=== PATIENT | male | born 1940 | race Caucasian/White ===

== ENCOUNTER 2024-01-30 09:38 | Inpatient (IN) | payer MEDICARE, SELFPAY ==
[2024-01-30] VITALS (13 sets, daily range): BP systolic 81–141; BP diastolic 37–95; PULSE 62–77; RESP 14–20; TEMP 36.4–36.9; O2SAT 90–97; BMI 27.4
--- NOTE | ~2024-01-30 | XR_ITS ---
EXAMINATION: XR CHEST CLINICAL INFORMATION: SOB, Covid positive. Hypoxia COMPARISON: None available. TECHNIQUE: Frontal view of the chest was obtained. FINDINGS: The lungs are well-expanded with moderate dense opacity left lower lobe retrocardiac area suggestive of infiltrate. Heart size is enlarged with normal pulmonary vascularity. No gross bony abnormality seen. XR/XR chest 1V IMPRESSION: 1. Left lower lobe retrocardiac infiltrate. 2. Mild cardiomegaly.
--- NOTE | ~2024-01-30 | CT_ITS ---
EXAMINATION: CT ANGIOGRAM OF THE CHEST WITH AND WITHOUT CONTRAST (CT PULMONARY ANGIOGRAM FOR PE) CLINICAL INFORMATION: Reason for Exam covid,low O2 sat,chest pain,elevated d-dimer COMPARISON: None available. TECHNIQUE: Prior to contrast administration, noncontrast localization images were obtained. Subsequently, multidetector volumetric imaging was performed from the thoracic inlet to below the diaphragms following the administration of 65 mL Omnipaque 350 intravenous contrast. No contrast reaction reported Sagittal, coronal, and MIP oblique sagittal reformatted images were obtained on the CT workstation, uploaded to PACS, and reviewed. This CT examination was performed using dose optimization techniques as appropriate, variously including the following: *Automated exposure control *Adjustment of mA and/or kV according to patient size (this includes techniques or standardized protocols for targeted exams where dose is matched to indication/reason for exam; i.e. extremities or head) *Use of iterative reconstruction technique Total exam dose-length product 391 mGy-cm FINDINGS: QUALITY OF STUDY/CONTRAST BOLUS: Satisfactory. PULMONARY ARTERIES: No pulmonary emboli. THORACIC AORTA: No aneurysm. LUNG: There is diffuse emphysematous change. There is also bilateral multilobar groundglass attenuation. PLEURA: No pleural effusion or pneumothorax. MEDIASTINUM: Normal heart size. No pericardial effusion. No hilar or mediastinal lymphadenopathy. No evidence of septal bowing or right heart strain. CORONARY ARTERY CALCIFICATION: Moderate. CHEST WALL/AXILLA: No axillary or internal mammary lymphadenopathy. OSSEOUS STRUCTURES: No acute or suspicious osseous abnormality. UPPER ABDOMEN: There are diverticula at the splenic flexure of colon. No reflux of contrast into the hepatic veins to suggest elevated right heart pressures. CT/CT angio chest PE protocol IMPRESSION: 1. No evidence of pulmonary embolism. 2. Diffuse emphysematous change of lungs. 3. Bilateral multilobar groundglass attenuation is nonspecific. An atypical infectious process considered. VTE: negative.
--- NOTE | ~2024-01-30 | XR_ITS ---
EXAMINATION: XR CHEST CLINICAL INFORMATION: Tube insertion COMPARISON: Previous chest x-ray 02/01/2024 TECHNIQUE: Frontal view of the chest was obtained. FINDINGS: Endotracheal tube tip 1 cm above the sigrid. Nasogastric tube projects over proximal stomach. The cardiac and mediastinal contours are stable. There is bilateral airspace disease, left greater than right, probably representing pneumonia. This does not appear appreciably changed from January 31 exam. No pleural effusion or pneumothorax. Degenerative changes of the spine and shoulders. XR/XR chest 1V IMPRESSION: Endotracheal tube tip 1 cm above the sigrid and should be pulled back slightly. Nasogastric tube projects over proximal stomach. No change in bilateral airspace disease probably representing pneumonia. Findings will be communicated by the [employer] workflow pastrycook.
--- NOTE | ~2024-01-30 | XR_ITS ---
EXAMINATION: XR CHEST CLINICAL INFORMATION: Post dialysis catheter placement COMPARISON: Previous chest x-ray most recent February 03, 2024 TECHNIQUE: Frontal view of the chest was obtained. FINDINGS: Endotracheal tube with tip 4.5 cm above the sigrid. Nasogastric tube projects over proximal stomach, tip not seen. New right jugular line with tip projecting over the SVC. The cardiac silhouette is enlarged but stable. There is worsening bilateral airspace disease. There is denser atelectasis or consolidation at the left lung base. Differential would include pneumonia and pulmonary edema.. No pleural effusion or pneumothorax. XR/XR chest 1V IMPRESSION: New right jugular line tip projects over SVC. No pneumothorax. Worsening bilateral airspace disease.
--- NOTE | ~2024-01-30 | XR_ITS ---
EXAMINATION: XR CHEST CLINICAL INFORMATION: Respiratory failure. COMPARISON: CT from the same date at 4:50 AM. Radiograph from the same date at 2:30 AM TECHNIQUE: Frontal view of the chest was obtained. FINDINGS: Progression of the diffuse patchy consolidative and hazy airspace opacities throughout both lungs, left side greater than right. Cardiac silhouette is within normal limits in size. Pulmonary vasculature is obscured by the pulmonary opacities. No pneumothorax or pleural effusion identified. Degenerative spondylosis is present in the thoracic spine. No acute osseous findings. Chronic bilateral rotator cuff tears. XR/XR chest 1V IMPRESSION: Progression of the diffuse patchy consolidative and hazy airspace opacities throughout both lungs, left side greater than right. This appearance could correspond to pulmonary edema. Pneumonia is possible, though less likely given the rapid progression. Acute interstitial pneumonia and diffuse alveolar hemorrhage are also on the differential.
--- NOTE | ~2024-01-30 | XR_ITS ---
EXAMINATION: XR CHEST CLINICAL INFORMATION: Worsening O2 saturation. COMPARISON: 01/30/2024 TECHNIQUE: Frontal view of the chest was obtained. FINDINGS: The cardiomediastinal silhouette is stable. There is stable left lateral left greater than right lower lung field increased markings/left lung base infiltrative change. There is no new consolidation or pleural effusion. The bony structures and soft tissues are unremarkable. XR/XR chest 1V IMPRESSION: Stable bilateral lower lung field increased markings/left lower lung field infiltrative change. No new consolidation or pleural effusion.
--- NOTE | ~2024-01-30 | XR_ITS ---
EXAMINATION: XR CHEST CLINICAL INFORMATION: Decreased oxygen saturation COMPARISON: 02/06/2024 TECHNIQUE: Frontal view of the chest was obtained. FINDINGS: Endotracheal tube tip lies approximately 6 cm above the sigrid. Enteric tube courses below the diaphragm. Right IJ central line tip lies in the region of the upper SVC. Lung volumes are symmetric. Regions of airspace opacity at the bilateral lung bases are similar to prior. Heterogeneous haziness in the mid to upper lungs appears slightly decreased compared to prior. No evidence of pneumothorax. Small left pleural effusion is suspected. The cardiomediastinal silhouette is stable. Calcification is present at the aortic arch. No acute osseous findings are seen. XR/XR chest 1V IMPRESSION: Heterogeneous haziness in the mid to upper lungs appears slightly decreased compared to prior. Persistent bibasilar opacities and small left pleural effusion. Endotracheal tube tip 6 cm above the sigrid.
--- NOTE | 2024-01-30 10:21 | ECG_ITS ---
Test Reason : SOB Blood Pressure : / mmHG Vent. Rate : 066 BPM Atrial Rate : 066 BPM P-R Int : 132 ms QRS Dur : 096 ms QT Int : 432 ms P-R-T Axes : 013 -24 -07 degrees QTc Int : 452 ms Sinus rhythm with Premature atrial complexes Minimal voltage criteria for LVH, may be normal variant ( R in aVL ) Borderline ECG No previous ECGs available Referred By: Betty Rendon Electronically Signed By:AL BAE
--- NOTE | 2024-01-30 10:23 | ED.SOB ---
HPI - SOB/Dyspnea General Chief Complaint: Dyspnea Stated Complaint: SOB Time Seen by Provider: 01/30/24 09:49 Source: patient, family and EMS Mode of arrival: EMS Limitations: no limitations History of Present Illness HPI Narrative: 83 yo male with history of HTN, HLD, CAD s/p stent, hx skin cancer who presents to the ER from his doctor's office via EMS for evaluation of SOB, cough and hypoxia in the setting of being found to be COVID+ yesterday at home. He reports he started getting sick 8 days ago. His symptoms including productive cough of clear/white phlegm, weakness, fatigue, shortness of breath with exertion. He has not had any fevers or chest pain. No known sick contacts. He is vaccinated and boosted against COVID-19 but cannot recall when his last booster was. He is a former smoker, quit at age 41. No known history of COPD or asthma. He was at his doctor's office today where he was found to be 86% on room air. He was placed on 3L NC with improvement to 95%. On arrival to the ER patient was able to speak in complete sentences, no respiratory distress. Dry cough present. SPO2 91% on 3L NC to was increased to 4L NC. MD elicited complaint: shortness of breath and cough Onset (ago): day(s) Context: recent illness Timing: intermittent and progressively worsening Severity: moderate Exacerbating factors: exertion and coughing Relieving factors: oxygen and rest Associated symptoms: cough, sputum production, chest congestion and lightheadedness Treatment prior to arrival: oxygen Related Data Home oxygen amount: none Home Medications Medication Instructions Recorded Confirmed aspirin 81 mg tablet,delayed 81 mg PO DAILY 01/30/24 01/30/24 release isosorbide mononitrate 30 mg 30 mg PO DAILY 01/30/24 01/30/24 tablet,extended release 24 hr lisinopril 10 mg tablet 10 mg PO DAILY 01/30/24 01/30/24 metoprolol succinate 25 mg 25 mg PO DAILY 01/30/24 01/30/24 tablet,extended release 24 hr multivitamin 1 tab PO DAILY 01/30/24 01/30/24 rosuvastatin 10 mg tablet 10 mg PO BEDTIME 01/30/24 01/30/24 tafluprost (PF) 0.0015 % eye drops 1 drp ophthalmic (eye) DAILY 01/30/24 01/30/24 in a dropperette triamcinolone acetonide 0.1 % 1 appl topical BID-TID 01/30/24 01/30/24 topical cream Allergies Allergy/AdvReac Type Severity Reaction Status Date / Time atorvastatin Allergy Unknown Verified 01/30/24 10:15 cephalexin Allergy Unknown Verified 01/30/24 10:15 doxycycline Allergy Unknown Verified 01/30/24 10:15 neomycin Allergy Unknown Verified 01/30/24 10:15 Review of Systems Review of Systems: Yes all other systems are reviewed and are negative [facility] Social History Social History Smoked in Last 30 Days: No Advance Directives: No Advance Directives Information Provided: No Physical Exam Vital Signs: Vital Signs: Last Vital Signs Temp 98.5 F 01/30/24 10:16 Pulse 64 01/30/24 12:13 Resp 14 01/30/24 12:13 BP 91/60 01/30/24 12:13 Pulse Ox 96 01/30/24 12:13 O2 Del Method Nasal Cannula 01/30/24 12:13 O2 Flow Rate 5 01/30/24 12:13 Oxygen Flow Rate 4 01/30/24 10:16 BMI result Body Mass Index 27.4 Appearance: Alert. Oriented X3. No acute distress. Head: normocephalic, atraumatic. Eyes: Pupils equal, round and reactive to light. ENT: Pharynx normal. No tonsillar swelling or exudate. Neck: Normal inspection. Neck supple. CVS: Normal heart rate and rhythm. Pulses normal. Respiratory: No respiratory distress. Breath sounds coarse at the bilateral bases without any rhonchi or wheezing. Abdomen: Soft and nontender. +BS x4 Skin: Skin warm and dry. Normal skin color. Normal skin turgor. No rashes. Extremities: No lower extremity edema. No joint swelling. Neuro/psych: Oriented X 3. No motor deficit. No sensory deficit. CN II-XII intact. Normal speech and cognition. Course Reevaluation(s) Reevaluation #1: hypoxic, requiring 4L NC to maintain sats. anticipate admission. IV decadron ordered for COVID. CXR, labs, EKG pending. Time: 10:28 Medications Administered Discontinued Medications Generic Name Dose Route Start Last Admin Trade Name Freq PRN Reason Stop Dose Admin Dexamethasone Sodium Phosphate 6 mg 01/30/24 10:21 01/30/24 10:42 Dexamethasone Sod Phosphate 4 Mg/Ml Vial IVPUSH 01/30/24 10:22 6 mg ONCE ONE Administration Medical Decision Making Medical Decision Making [facility] Narrative: 83 yo male with history of HTN, HLD, skin cancer who presents to the ER from his doctor's office via EMS for evaluation of SOB, cough and hypoxia in the setting of being found to be COVID+ yesterday at home. He reports he started getting sick 8 days ago. Patient is hypoxic requiring significant amounts of oxygen. He has been titrated up to 6 L nasal cannula to maintain saturations. He has not in any respiratory distress or having any difficulty breathing. His chest x-ray shows a LLL infiltrate. this is likely viral however given degree of hypoxia will give dose of azithromycin for possible CAP. does not meet sepsis criteria - no fever, leukocytosis, has low procalcitonin. has allergies to cephalosporins and doxycycline. BP has been soft but stable. MAPs 65-70s. he reports they have been on the lower side at home. results d/w patient. plan for admission for hypoxia 2/2 COVID-19 Differential Diagnosis Differential Diagnoses: The differential diagnosis associated with the presentation includes COVID pneumonia, superimposed bacterial pneumonia, acute CHF, less likely PE Admission/Observation Consideration of admission/observation: Escalation of care including admission/observation considered Consult Healthcare Provider Management of the patient was discussed with: Hospitalist Lab Data [facility] Lab Attestation statement: I reviewed the patient's lab results. 01/30/24 10:52 01/30/24 10:52 Labs: Lab Results 01/30/24 Range/Units 10:52 WBC 7.4 (4.8-10.8) X10*3/uL RBC 4.28 L (4.60-5.80) X10*6/uL Hgb 13.2 L (14.0-18.0) g/dl Hct 39.3 L (42.0-52.0) % MCV 91.8 (80.0-98.0) fL MCH 30.8 (27.0-33.0) pg MCHC 33.6 (31.0-36.0) g/dl RDW 13.2 (11.0-16.0) % Plt Count 155 L (160-400) X10*3/uL MPV 11.4 (9.4-12.4) fL Immature Gran % (Auto) 0.3 (0.0-0.4) % Neut % (Auto) 82.4 H (45-73) % Lymph % (Auto) 10.0 L (20-40) % [place] % (Auto) 6.9 (2-11) % Eos % (Auto) 0.1 (0-4) % Baso % (Auto) 0.3 (0-2) % Lymph # (Auto) 0.7 L (1.2-4.9) X10*3/uL [place] # (Auto) 0.5 (0.1-1.2) X10*3/uL Eos # (Auto) 0.0 (0.0-0.4) X10*3/uL Baso # (Auto) 0.0 (0.0-0.2) X10*3/uL Abs Immat Gran (auto) 0.02 (0.00-0.03) X10*3/uL Absolute Neuts (auto) 6.1 (2.0-8.3) x10*3/uL Absolute Nucleated RBC 0.000 (0.0-0.012) X10*3/uL Nucleated RBC % (auto) 0.0 (0.0-0.2) /100WBC Sodium 137 (135-145) mmol/L Potassium 4.7 (3.3-5.1) mmol/L Chloride 104 (96-108) mmol/L Carbon Dioxide 24 (22-29) mmol/L Anion Gap 14 (12-20) BUN 25 H (9-16) mg/dL Creatinine 1.13 (0.5-1.4) mg/dL Estim Creat Clear Calc 50.9 Estimated GFR > 60 Random Glucose 109 (60-115) mg/dL Calcium 8.2 L (8.4-10.2) mg/dL Magnesium 2.2 (1.6-2.6) mg/dL Total Bilirubin 1.4 H (0.0-1.0) mg/dL Direct Bilirubin 0.6 H (0.0-0.5) mg/dL AST 51 H (5-37) U/L ALT 48 H (0-40) U/L Alkaline Phosphatase 85 (39-117) U/L Troponin I High Sens 14.0 (<3.5-35.0) ng/L B-Natriuretic Peptide 105 H (<100) pg/mL Total Protein 6.4 L (6.5-8.0) g/dL Albumin 3.4 L (3.5-5.0) g/dL Procalcitonin 0.12 ng/mL Independent Interpretation I performed an independent interpretation of an: EKG and Plain X-Ray Interpretation: EKG w/ sinus rhythm with PACs, HR 66 bpm, normal LA interval, normal QTC, no ST segment elevations or depressions. Chest x-ray with infiltration in the left lower lobe, agree with radiologist's read Radiology Impression Discussion of test interpretation with radiology: I have reviewed the radiologist's reading. Radiologist Impression: XR/XR chest 1V IMPRESSION: 1. Left lower lobe retrocardiac infiltrate. 2. Mild cardiomegaly. Independent Historian Clinical information obtained from an independent historian. History obtained from or confirmed by: Spouse and EMS External Record Review External record reviewed: Outpatient record Prescription Management I considered prescription management with: Antiviral and Other Chronic Conditions Patient?s care impacted by: Hypertension Critical Care Time Critical Care Time Critical Care Time: Yes Total Critical Care Time: 39 Attestation: I have personally provided critical care time exclusive of time spent on separately billable procedures. Time includes review of lab data, radiology results, discussion with consultants, and monitoring for potential decompensation. Intervention performed as documented. Discharge Plan Discharge Clinical Impression: Acute respiratory failure with hypoxia, COVID-19 Patient Disposition: Admitted As Inpatient
[2024-01-30] MEDS: dexAMETHasone sod phosphate 4 MG/ML VIAL 6 MG IVPUSH (10:42)
--- NOTE | 2024-01-30 10:45 | PHA.MEDREC ---
Pharmacy Consult ? Medication Reconciliation Pharmacy has completed the medication reconciliation. ED faxed medication list up to pharmacy.
[2024-01-30 10:56] LABS: MANUAL DIFF FLAG NO
[2024-01-30 11:03] LABS: Basophils Percent Auto 0.3 % (0-2); Eosinophils Percent Auto 0.1 % (0-4); Hematocrit 39.3 % (42.0-52.0); Hemoglobin 13.2 g/dl (14.0-18.0); Imm Gran Abs Auto 0.02 X10*3/uL (0.00-0.03); Imm Gran Pct Auto 0.3 % (0.0-0.4); Lymphocytes Absolute Auto 0.7 X10*3/uL (1.2-4.9); Mean Corpuscular HGB Conc 33.6 g/dl (31.0-36.0); Mean Corpuscular Hemoglobin 30.8 pg (27.0-33.0); Mean Corpuscular Volume 91.8 fL (80.0-98.0); Mean Platelet Volume 11.4 fL (9.4-12.4); Monocytes Absolute Auto 0.5 X10*3/uL (0.1-1.2); Monocytes Percent Auto 6.9 % (2-11); Neutrophils Absolute Auto 6.1 x10*3/uL (2.0-8.3); Neutrophils Percent Auto 82.4 % (45-73); Platelet Count 155 X10*3/uL (160-400); Red Blood Count 4.28 X10*6/uL (4.60-5.80); Red Cell Distribution Width 13.2 % (11.0-16.0); White Blood Count 7.4 X10*3/uL (4.8-10.8)
[2024-01-30 11:25] LABS: Alanine Aminotransferase 48 U/L (0-40); Albumin Level 3.4 g/dL (3.5-5.0); Alkaline Phosphatase 85 U/L (39-117); Anion Gap 14 (12-20); Aspartate Amino Transferase 51 U/L (5-37); Bilirubin Direct 0.6 mg/dL (0.0-0.5); Bilirubin Total 1.4 mg/dL (0.0-1.0); Blood Urea Nitrogen 25 mg/dL (9-16); Calcium 8.2 mg/dL (8.4-10.2); Carbon Dioxide 24 mmol/L (22-29); Chloride 104 mmol/L (96-108); Creatinine Clr Calc Pharmacy 50.9; Estimated Glomerular Filt Rate > 60; Glucose Random 109 mg/dL (60-115); Magnesium 2.2 mg/dL (1.6-2.6); Potassium 4.7 mmol/L (3.3-5.1); Sodium 137 mmol/L (135-145); Total Protein 6.4 g/dL (6.5-8.0)
[2024-01-30 11:26] LABS: B Type Natriuretic Peptide 105 pg/mL (<100)
[2024-01-30 11:46] LABS: Procalcitonin 0.12 ng/mL
--- NOTE | 2024-01-30 12:12 | PC.NURSE ---
Per SHEREE Hernández, pt does not need blood cultures. PA made aware of BP 91/60, map 72.
--- NOTE | 2024-01-30 13:05 | PC.NURSE ---
BP 81/54 with a mAP of 63 - Betty BENTLEY made aware.
--- NOTE | 2024-01-30 13:11 | P.HPHOSP_ITS ---
History of Present Illness Date of Service: 01/30/24 Attending physician on admission: Kenisha Diaz Chief Complaint: SOB/KAUFFMAN Pt is an 83-year-old male with a PMH significant for?HTN, HLD, CAD s/p stenting, and hx of skin cancer who presents to the ED with?cough, SOB, difficulty breathing, and myalgias x1 week. Patient states symptoms began last and continued to worsen over the week. Reports cough has mostly been nonproductive. Has been eating and drinking less during this time, and feeling weaker than normal. Patient took a home COVID test yesterday which was positive. Presented to PCP this morning for evaluation and was found to be hypoxic, satting at 86% on RA and was sent to the ED for further evaluation. Patient reports that he has never felt this sick before in his life. Denies chest pain/pressure, palpitations. No fever or chills. Denies nausea, vomiting, abdominal pain. Remote history of smoking, quit over 40 years ago. In the ED pt was hypotensive as low as 81/54 and hypoxic as low as 86% on RA. Labs were significant for bilirubin 1.4, AST 51, ALT 48, BNP 105. No leukocytosis. Procalcitonin 0.12. CXR showed left lower lobe retrocardiac infiltrate and mild cardiomegaly. EKG demonstrated sinus rhythm with PACs but no evidence of ST elevations or depressions. Pt was treated with dexamethasone, IVF, and azithromycin. Pt will be admitted to the hospital for treatment and further evaluation of acute hypoxic respiratory failure in the setting of COVID infection with superimposed pneumonia. Review of Systems 2 Review of Systems: SOB, KAUFFMAN Cough occasionally productive whitish sputum Myalgias Denies fever, chills No nausea, vomiting, diarrhea, abdominal pain Denies chest pain/pressure, palpitations [facility] Medical History (Updated 01/31/24 @ 13:12 by Kenisha Diaz MD) HLD (hyperlipidemia) HTN (hypertension) CAD (coronary artery disease) Social History Household Members: Spouse Housing: House Do you presently have visiting nurse or other home services: No Patient Tobacco Use Status: Former Tobacco user Smoked in Last 30 Days: No Use of substances other than those prescribed or required for medical reasons: No Currently Displaying Signs/Symptoms of Drug Intoxication Withdrawal: No Have you been hit, kicked, punched, or otherwise hurt by someone within the past year? If so, by whom?: No Do you feel safe in your current relationship?: Yes Is there a partner from a previous relationship who is making you feel unsafe now?: No Are you made to feel afraid or neglected: No Advance Directives: No Advance Directives Information Provided: No Nutrition Risks: No Nutritional Risk service: No Meds Allergies Allergy/AdvReac Type Severity Reaction Status Date / Time atorvastatin Allergy Unknown Verified 01/30/24 10:15 cephalexin Allergy Unknown Verified 01/30/24 10:15 doxycycline Allergy Unknown Verified 01/30/24 10:15 neomycin Allergy Unknown Verified 01/30/24 10:15 Active Medications: Current Medications Azithromycin 500 mg/ Sodium (Chloride) 250 mls @ 125 mls/hr IV ONCE ONE Stop: 01/30/24 14:17 Sodium Chloride (Ns) 500 mls @ 500 mls/hr IV .Q1H TERESA Stop: 01/30/24 14:14 Home Medications Medication Instructions Recorded Confirmed Last Taken Type aspirin 81 mg tablet,delayed 81 mg PO DAILY 01/30/24 01/30/24 Unknown History release dorzolamide-timolol (PF) 2 %-0.5 % 1 drp ophthalmic (eye) BID 01/30/24 01/30/24 Unknown History eye drops in a dropperette (Cosopt (PF)) isosorbide mononitrate 30 mg 30 mg PO DAILY 01/30/24 01/30/24 Unknown History tablet,extended release 24 hr lisinopril 10 mg tablet 10 mg PO DAILY 01/30/24 01/30/24 Unknown History metoprolol succinate 25 mg 25 mg PO DAILY 01/30/24 01/30/24 Unknown History tablet,extended release 24 hr multivitamin 1 tab PO DAILY 01/30/24 01/30/24 Unknown History rosuvastatin 10 mg tablet 10 mg PO BEDTIME 01/30/24 01/30/24 Unknown History tafluprost (PF) 0.0015 % eye drops 1 drp ophthalmic (eye) DAILY 01/30/24 01/30/24 Unknown History in a dropperette triamcinolone acetonide 0.1 % 1 appl topical BID-TID 01/30/24 01/30/24 Unknown History topical cream Physical Exam 2 Vital Signs and Narrative: Vital Signs: Last Vital Signs Temp 97.6 F 01/30/24 13:10 Pulse 63 01/30/24 13:10 Resp 18 01/30/24 13:10 BP 81/54 L 01/30/24 13:10 Pulse Ox 95 01/30/24 13:10 O2 Del Method Nasal Cannula 01/30/24 12:13 O2 Flow Rate 5 01/30/24 12:13 Oxygen Flow Rate 4 01/30/24 10:16 BMI result Body Mass Index 27.4 Constitutional: Alert, in no acute distress. Mental Status: Oriented to person, place and time. Eyes: Pupils are equal, round, and reactive to light. Ear, Nose, and Throat: Oropharynx clear, mucous membranes moist. Ears and nose without deformities. Trachea midline. Respiratory: Clear to auscultation bilaterally. No wheezing, rales, or rhonchi. Able to speak in full sentences. Noted to occasionally cough during exam. Cardiovascular: S1, S2 regular. 3/6 murmur heard at right sternal border. Gastrointestinal: Abdomen soft, non-tender, non-distended. Normal bowel sounds. Neurologic: Cranial nerves II-XII are grossly intact bilaterally. No focal neurological deficits. Moves all extremities spontaneously. Skin: Warm, dry. Musculoskeletal: No cyanosis or clubbing. Extremities: No edema. Psychiatric: Normal mood and affect. Results Labs 02/01/24 06:28 02/01/24 06:29 Labs: Laboratory Results - last 24 hr 01/30/24 10:52 MCV 91.8 MCH 30.8 MCHC 33.6 RDW 13.2 Plt Count 155 L MPV 11.4 Immature Gran % (Auto) 0.3 Neut % (Auto) 82.4 H Lymph % (Auto) 10.0 L [place] % (Auto) 6.9 Eos % (Auto) 0.1 Baso % (Auto) 0.3 Lymph # (Auto) 0.7 L [place] # (Auto) 0.5 Eos # (Auto) 0.0 Baso # (Auto) 0.0 Abs Immat Gran (auto) 0.02 Absolute Neuts (auto) 6.1 Absolute Nucleated RBC 0.000 Nucleated RBC % (auto) 0.0 Anion Gap 14 Estim Creat Clear Calc 50.9 Estimated GFR > 60 Random Glucose 109 Calcium 8.2 L Magnesium 2.2 Total Bilirubin 1.4 H Direct Bilirubin 0.6 H AST 51 H ALT 48 H Alkaline Phosphatase 85 Troponin I High Sens 14.0 B-Natriuretic Peptide 105 H Total Protein 6.4 L Albumin 3.4 L Procalcitonin 0.12 Imaging Radiologist's Impressions: Impressions Chest X-Ray 01/30/24 11:15 IMPRESSION: 1. Left lower lobe retrocardiac infiltrate. 2. Mild cardiomegaly. Assessment and Plan (1) COVID-19: Status: Acute (2) Acute respiratory failure with hypoxia: Status: Acute Plan Pt is an 83-year-old male with a PMH significant for?HTN, HLD, CAD s/p stenting, and hx of skin cancer who presents to the ED with?cough, SOB, difficulty breathing, and myalgias x1 week. Pt will be admitted to the hospital for treatment and further evaluation of acute hypoxic respiratory failure in the setting of COVID infection with superimposed pneumonia. Acute hypoxic respiratory failure in the setting of COVID infection with superimposed pneumonia Patient with cough, SOB, difficulty breathing, myalgias, anorexia x1 week, satting as low as 86% on RA Tested positive for COVID, CXR showing left lower lobe retrocardiac infiltrate Does not meet sepsis criteria: No fever, tachycardia, tachypnea, or leukocytosis Will treat with ceftriaxone and azithromycin, started 01/30/2024 Will treat with dexamethasone, DuoNebs, guaifenesin Will hold off on remdesivir; pt has been experiencing symptoms for over one week and unlikely to be of much benefit Titrate supplemental O2 >92, wean as tolerated HTN BP has been soft, will hold lisinopril for now, resume as warranted HLD/CAD Continue statin, aspirin Full Code Attending:?Dr. Diaz DVT Prophylaxis: Lovenox Pt will require a hospitalization of at least two nights for treatment of acute hypoxic respiratory failure in setting of COVID infection with superimposed pneumonia. Patient will require hospitalization for administration of supplemental O2, IV steroids, and IV antibiotics.? Quality Stroke Does the patient have a stroke diagnosis?: No VTE Prior VTE?: No VTE Risk Level:: Medical - moderate - high VTE Device Contraindication: Treatment Not Indicated VTE Drug Contraindication: N/A - Med Ordered
[2024-01-30] MEDS: 0.9 % Sodium Chloride 500 ML IV (13:46)
[2024-01-30] MEDS: Azithromycin 500 MG in 0.9 % Sodium Chloride 250 ML 125 MG IV (13:46)
[2024-01-30 13:52] LABS: Appearance Urine Cloudy; Color Urine Dark Yellow; Glucose Urine UA Negative (Negative); Leukocyte Esterase Urine Trace (Negative); Nitrite Urine Negative (Negative); PH 5.5 (5.0-9.0); Specific Gravity - Urine >= 1.030 (1.005-1.025); UMIC TRIGGER UACC YES; Urine Blood Negative (Negative); Urine Ketones Trace mg/dL (Negative); Urine Protein 100 (2+) mg/dL (Neg-Trace)
[2024-01-30 14:07] LABS: Bacteria Urine None Seen (None Seen); RBC Urine 0-2 /HPF (0-2); WBC Urine 0-5 /HPF (0-5)
[2024-01-30 14:24] LABS: Influenza A PCR NEGATIVE (Negative); Influenza B PCR NEGATIVE (Negative); Resp Syncy Virus RNA Qual PCR NEGATIVE (Negative); SARS COV2 PCR INHOUSE POSITIVE (Negative)
[2024-01-30] MEDS: cefTRIAXone sodium 1 GM in 0.9 % Sodium Chloride 50 ML IV (18:22)
[2024-01-30] MEDS: 0.9 % Sodium Chloride Flush 3 ML SYRINGE IVFLUSH (18:22)
[2024-01-30] MEDS: Albuterol/Iprat 2.5/0.5MG 3 ML AMPUL.NEB INHALE (20:49)
[2024-01-31] VITALS (11 sets, daily range): BP systolic 108–184; BP diastolic 55–94; PULSE 69–90; RESP 16–21; TEMP 36–36.6; O2SAT 80–97
[2024-01-31 06:43] LABS: MANUAL DIFF FLAG NO
[2024-01-31 06:54] LABS: Basophils Percent Auto 0.1 % (0-2); Hematocrit 38.7 % (42.0-52.0); Hemoglobin 13.3 g/dl (14.0-18.0); Imm Gran Abs Auto 0.08 X10*3/uL (0.00-0.03); Imm Gran Pct Auto 0.8 % (0.0-0.4); Lymphocytes Absolute Auto 0.6 X10*3/uL (1.2-4.9); Mean Corpuscular HGB Conc 34.4 g/dl (31.0-36.0); Mean Corpuscular Hemoglobin 31.3 pg (27.0-33.0); Mean Corpuscular Volume 91.1 fL (80.0-98.0); Monocytes Absolute Auto 0.4 X10*3/uL (0.1-1.2); Monocytes Percent Auto 4.1 % (2-11); Neutrophils Absolute Auto 9.4 x10*3/uL (2.0-8.3); Platelet Count 160 X10*3/uL (160-400); Red Blood Count 4.25 X10*6/uL (4.60-5.80); Red Cell Distribution Width 12.9 % (11.0-16.0); White Blood Count 10.6 X10*3/uL (4.8-10.8)
[2024-01-31 07:17] LABS: Anion Gap 14 (12-20); Blood Urea Nitrogen 26 mg/dL (9-16); Calcium 8.6 mg/dL (8.4-10.2); Carbon Dioxide 20 mmol/L (22-29); Chloride 107 mmol/L (96-108); Creatinine Clr Calc Pharmacy 65.3; Estimated Glomerular Filt Rate > 60; Glucose Random 137 mg/dL (60-115); Potassium 4.4 mmol/L (3.3-5.1); Sodium 137 mmol/L (135-145)
[2024-01-31] MEDS: Albuterol/Iprat 2.5/0.5MG 3 ML AMPUL.NEB INHALE ×4 (07:32→19:46)
--- NOTE | 2024-01-31 07:37 | PC.RT ---
found pt without 02 on. sats 80%. placed back on 6 l n/c and administered nebulizer. sats up to 94% now no resp distress noted
[2024-01-31] MEDS: Metoprolol Succinate ER 25 MG TAB.ER.24H PO (07:58)
[2024-01-31] MEDS: Isosorbide Mononitrate 30 MG TAB.ER.24H PO (07:58)
[2024-01-31] MEDS: dexAMETHasone sod phosphate 4 MG/ML VIAL 6 MG IVPUSH (07:58)
[2024-01-31] MEDS: lisinopriL 10 MG TABLET PO (07:59)
[2024-01-31] MEDS: Multivitamin TABLET 1 TAB PO (07:59)
[2024-01-31] MEDS: Aspirin Enteric Coated 81 MG TABLET.DR PO (07:59)
[2024-01-31] MEDS: 0.9 % Sodium Chloride Flush 3 ML SYRINGE IVFLUSH ×3 (07:59→21:24)
--- NOTE | 2024-01-31 08:41 | PC.RT ---
pt sats continue to be less than 88% on 6 liters nasal cannua. Changed to 8 liter [place] N/c and sats 88%-92% when has is not moving.
[2024-01-31 08:44] LABS: Alanine Aminotransferase 62 U/L (0-40); Albumin Level 3.3 g/dL (3.5-5.0); Alkaline Phosphatase 91 U/L (39-117); Aspartate Amino Transferase 58 U/L (5-37); Bilirubin Direct 0.5 mg/dL (0.0-0.5); Bilirubin Total 0.9 mg/dL (0.0-1.0); Total Protein 6.2 g/dL (6.5-8.0)
--- NOTE | 2024-01-31 12:40 | MHC.CM.PN ---
Pt lives with his , he is independent, no home health services or medical equipment. HCP was completed and added to chart, naming his , Lina and his son. DC plan is home via family transport, self care. CM to follow and assist with DC planning.
[2024-01-31] MEDS: Azithromycin 500 MG in 0.9 % Sodium Chloride 250 ML 125 MG IV (13:00)
--- NOTE | 2024-01-31 13:07 | P.PNIM_ITS ---
Subjective Subjective Date of Service: 01/31/24 Interval History: Seen and evaluated this morning feels better overall denies any fever or chills Review of Systems Review of Systems: Yes all other systems are reviewed and are negative Physical Exam 2 Vital Signs: Vital Signs: Last Vital Signs Temp 96.8 F 01/31/24 08:00 Pulse 87 01/31/24 11:32 Resp 16 01/31/24 11:32 BP 108/55 L 01/31/24 08:00 Pulse Ox 94 01/31/24 08:00 O2 Del Method Nasal Cannula 01/31/24 08:00 O2 Flow Rate 5 01/31/24 08:00 Oxygen Flow Rate 4 01/30/24 10:16 BMI result Body Mass Index 27.4 Const: Other: Constitutional : Awake, interactive, not in distress Neck : Normal inspection, Supple Cardiovascular : RRR, no JVP, no lower extremity edema Respiratory : good bilateral air entry, basal crackles, wheezes or rhonchi, On O2 supplement Gastrointestinal: soft, lax, Normal bowel sounds, Non tender Skin : Warm, Dry Neurological : Alert & oriented x3, No focal deficit , Objective Data Active Medications Acetaminophen (Acetaminophen 325 Mg Tablet) 650 mg PO Q6H PRN PRN Reason: Pain, Mild (Pain Scale 1-3) Albuterol/Ipratropium (Albuterol/Iprat 2.5/0.5mg 3 Ml Ampul.Neb) 3 ml INHALE RQ4H WHILE AWAKE [facility] Last Admin: 01/31/24 11:30 Dose: 3 ml Documented By: VIKTOR Aspirin (Aspirin Enteric Coated 81 Mg Tablet.) 81 mg PO DAILY [facility] Last Admin: 01/31/24 07:59 Dose: 81 mg Documented By: KATIE Dexamethasone Sodium Phosphate (Dexamethasone Sod Phosphate 4 Mg/Ml Vial) 6 mg IVPUSH DAILY [facility] Last Admin: 01/31/24 07:58 Dose: 6 mg Documented By: KATIE Docusate Sodium (Docusate Sodium 100 Mg Capsule) 100 mg PO DAILY PRN PRN Reason: Constipation Guaifenesin/Dextromethorphan (Guaifenesin Dm 200/20/10 Ml 10 Ml Syrup) 10 ml PO Q6H PRN PRN Reason: Cough Ceftriaxone Sodium 1 gm/ (Sodium Chloride) 50 mls @ 100 mls/hr IV Q24H [facility] Last Infusion: 01/30/24 19:00 Dose: Infused Documented By: AXEL Azithromycin 500 mg/ Sodium (Chloride) 250 mls @ 125 mls/hr IV Q24H [facility] Last Admin: 01/31/24 13:00 Dose: 125 mls/hr Documented By: KATIE Isosorbide Mononitrate (Isosorbide Mononitrate 30 Mg Tab.Er.24h) 30 mg PO DAILY [facility]; Protocol Last Admin: 01/31/24 07:58 Dose: 30 mg Documented By: KATIE Lisinopril (Lisinopril 10 Mg Tablet) 10 mg PO DAILY [facility]; Protocol Last Admin: 01/31/24 07:59 Dose: 10 mg Documented By: KATIE Melatonin (Melatonin 3 Mg Tablet) 6 mg PO BEDTIME PRN PRN Reason: Insomnia Metoprolol Succinate (Metoprolol Succinate Er 25 Mg Tab.Er.24h) 25 mg PO DAILY [facility]; Protocol Last Admin: 01/31/24 07:58 Dose: 25 mg Documented By: KATIE Multivitamins/Vitamin C (Multivitamin Tablet) 1 tab PO DAILY [facility] Last Admin: 01/31/24 07:59 Dose: 1 tab Documented By: KATIE Non-Formulary Medication (Tafluprost (Pf)) 1 drop EYE-BOTH DAILY [facility] (Dorzolamide-Timolol (Pf) [Cosopt (Pf)] 2-0.5 % Dropperette) 1 drop EYE-BOTH BID [facility] Ondansetron HCl (Ondansetron Hcl 4 Mg/2 Ml Vial) 4 mg IVPUSH Q8H PRN PRN Reason: Nausea and Vomiting Sodium Chloride (0.9 % Sodium Chloride Flush 3 Ml Syringe) 3 ml IVFLUSH QSHIFT [facility] Last Admin: 01/31/24 13:00 Dose: 3 ml Documented By: KATIE Labs 01/31/24 06:28 01/31/24 06:28 Labs: Laboratory Results - last 24 hr 01/30/24 01/31/24 13:31 06:28 MCV 91.1 MCH 31.3 MCHC 34.4 RDW 12.9 Plt Count 160 MPV 11.0 Immature Gran % (Auto) 0.8 H Neut % (Auto) 89.0 H Lymph % (Auto) 6.0 L Keith % (Auto) 4.1 Eos % (Auto) 0.0 Baso % (Auto) 0.1 Lymph # (Auto) 0.6 L Keith # (Auto) 0.4 Eos # (Auto) 0.0 Baso # (Auto) 0.0 Abs Immat Gran (auto) 0.08 H Absolute Neuts (auto) 9.4 H Absolute Nucleated RBC 0.000 Nucleated RBC % (auto) 0.0 Anion Gap 14 Estim Creat Clear Calc 65.3 Estimated GFR > 60 Random Glucose 137 H Calcium 8.6 Total Bilirubin 0.9 Direct Bilirubin 0.5 AST 58 H ALT 62 H Alkaline Phosphatase 91 Total Protein 6.2 L Albumin 3.3 L Urine Color Dark Yellow Urine Appearance Cloudy Urine pH 5.5 Ur Specific [place] >= 1.030 H Urine Protein 100 (2+) H Urine Glucose (UA) Negative Urine Ketones Trace Urine Blood Negative Urine Nitrite Negative Ur Leukocyte Esterase Trace H Urine RBC 0-2 Urine WBC 0-5 Ur Squamous Epith Cells 3-5 Urine Bacteria None Seen Hyaline Casts 11-20 Influenza Type A (PCR) NEGATIVE Influenza Type B (PCR) NEGATIVE RSV RNA Qual (PCR) NEGATIVE SARS-CoV-2 RNA (RT-PCR) POSITIVE A Assessment and Plan (1) COVID-19: Status: Acute (2) Acute respiratory failure with hypoxia: Status: Acute (3) Pneumonia: Status: Acute (4) Transaminitis: Status: Acute Plan Pt is an 83-year-old male with a PMH significant for?HTN, HLD, CAD s/p stenting, and hx of skin cancer who presents to the ED with?cough, SOB, difficulty breathing, and myalgias x1 week. Pt will be admitted to the hospital for treatment and further evaluation of acute hypoxic respiratory failure in the setting of COVID infection with superimposed pneumonia. Acute hypoxic respiratory failure in the setting of COVID infection with superimposed pneumonia CXR showing left lower lobe retrocardiac infiltrate Pending cultures Continue ceftriaxone and azithromycin, started 01/30/2024 Continue dexamethasone, DuoNebs, guaifenesin Titrate supplemental O2 >92, wean as tolerated Transaminitis likely related to acute infection and hx of alcohol intake trending down Monitor LFT HTN hold lisinopril for now, resume as warranted HLD/CAD Continue statin, aspirin Full Code DVT Prophylaxis: Lovenox Pt will require a hospitalization of overnight for treatment of acute hypoxic respiratory failure in setting of COVID infection with superimposed pneumonia. Patient will require hospitalization for administration of supplemental O2, IV steroids, and IV antibiotics.? Quality Stroke Does the patient have a stroke diagnosis?: No VTE Prior VTE?: No VTE Risk Level:: Medical - moderate - high VTE Device Contraindication: Treatment Not Indicated VTE Drug Contraindication: N/A - Med Ordered
[2024-01-31] MEDS: cefTRIAXone sodium 1 GM in 0.9 % Sodium Chloride 50 ML IV (15:44)
[2024-01-31] MEDS: guaiFENesin DM 200/20/10 ML 10 ML SYRUP PO (15:44)
[2024-02-01] VITALS (15 sets, daily range): BP systolic 98–171; BP diastolic 56–92; PULSE 74–97; RESP 20–28; TEMP 36.2–37; O2SAT 86–96
[2024-02-01] MEDS: Albuterol/Iprat 2.5/0.5MG 3 ML AMPUL.NEB INHALE ×5 (01:49→20:07)
[2024-02-01] MEDS: Enoxaparin Sodium 40 MG/0.4 ML SYRINGE SUBCUT (02:52)
[2024-02-01 02:59] LABS: Basophils Percent Auto 0.1 % (0-2); Hematocrit 39.5 % (42.0-52.0); Hemoglobin 13.4 g/dl (14.0-18.0); Imm Gran Abs Auto 0.12 X10*3/uL (0.00-0.03); Imm Gran Pct Auto 0.8 % (0.0-0.4); Lymphocytes Absolute Auto 0.6 X10*3/uL (1.2-4.9); MANUAL DIFF FLAG SCAN; Mean Corpuscular HGB Conc 33.9 g/dl (31.0-36.0); Mean Corpuscular Hemoglobin 31.3 pg (27.0-33.0); Mean Corpuscular Volume 92.3 fL (80.0-98.0); Mean Platelet Volume 11.2 fL (9.4-12.4); Monocytes Absolute Auto 0.4 X10*3/uL (0.1-1.2); Monocytes Percent Auto 2.6 % (2-11); Neutrophils Absolute Auto 13.5 x10*3/uL (2.0-8.3); Neutrophils Percent Auto 92.5 % (45-73); Platelet Count 192 X10*3/uL (160-400); Red Blood Count 4.28 X10*6/uL (4.60-5.80); Red Cell Distribution Width 12.9 % (11.0-16.0); SCAN SMEAR FLAG 1; White Blood Count 14.6 X10*3/uL (4.8-10.8)
[2024-02-01 03:06] LABS: D Dimer High Sensitivity 2015 NG/ML
[2024-02-01 03:18] LABS: SLIDE REVIEW VERIFIED
[2024-02-01 03:22] LABS: B Type Natriuretic Peptide 182 pg/mL (<100)
[2024-02-01 03:25] LABS: Troponin-I High Sensitivity 13.2 ng/L (<3.5-35.0)
[2024-02-01 03:29] LABS: Lactic Acid 3.9 mmol/L (0.5-2.0)
[2024-02-01 03:30] LABS: Alanine Aminotransferase 91 U/L (0-40); Albumin Level 3.4 g/dL (3.5-5.0); Alkaline Phosphatase 105 U/L (39-117); Anion Gap 19 (12-20); Aspartate Amino Transferase 73 U/L (5-37); Bilirubin Total 0.9 mg/dL (0.0-1.0); Blood Urea Nitrogen 28 mg/dL (9-16); Calcium 9.2 mg/dL (8.4-10.2); Carbon Dioxide 20 mmol/L (22-29); Chloride 111 mmol/L (96-108); Creatinine Clr Calc Pharmacy 59.3; Estimated Glomerular Filt Rate > 60; Glucose Random 160 mg/dL (60-115); Magnesium 2.3 mg/dL (1.6-2.6); Sodium 144 mmol/L (135-145); Total Protein 6.5 g/dL (6.5-8.0)
[2024-02-01] MEDS: guaiFENesin DM 200/20/10 ML 10 ML SYRUP PO ×2 (03:30→10:36)
[2024-02-01] MEDS: 0.9 % Sodium Chloride 500 ML 999 ML IV (04:08)
[2024-02-01] MEDS: Insulin Regular, Human 100 UNIT/ML 3 ML VIAL IVPUSH (04:08)
[2024-02-01] MEDS: Dextrose 50 % 25 GM/50 ML SYRINGE IVPUSH (04:09)
[2024-02-01] MEDS: iohexoL 350 MG/ML 100 ML INFUS..BTL 65 ML IV (04:50)
[2024-02-01 04:56] LABS: Reflex Lactate? Lactic Acid Added
--- NOTE | 2024-02-01 06:14 | PM.EVENT ---
Event Note Date of Service: 02/01/24 Event Note: 1:58 - contacted to notify O2 sat dropped to the 70s and place on 10 L of supplemental oxygen. Chest x-ray stat obtained showed stable bilateral lower lobe field increased markings/left lower lung field infiltrate change. Labs stat obtained as well remarkable for leukocytosis, hyperkalemia, 6.0 lactic acidosis, 3.9. BNP is slightly increased. D-dimer is 2,015. Pulmonary CTA showed no evidence of pulmonary embolism, diffuse emphysematous changes and bilateral multilobar ground-glass attenuation. 3:28 PM - patient is not requiring 15 L/min OxyMask. 6:07 PM - contacted to notify patient's keeps deciding to 86-88%. High-flow ordered. Tx given: Insulin R, D50 amp and IVFs. Continue to monitor potassium level and lactic acid. Time Spent With Patient Time: Total time managing care of this patient today ____ minutes.
[2024-02-01 06:48] LABS: Hematocrit 39.5 % (42.0-52.0); Hemoglobin 13.1 g/dl (14.0-18.0); Mean Corpuscular HGB Conc 33.2 g/dl (31.0-36.0); Mean Corpuscular Hemoglobin 30.6 pg (27.0-33.0); Mean Corpuscular Volume 92.3 fL (80.0-98.0); Mean Platelet Volume 11.3 fL (9.4-12.4); Platelet Count 192 X10*3/uL (160-400); Red Blood Count 4.28 X10*6/uL (4.60-5.80); White Blood Count 16.9 X10*3/uL (4.8-10.8)
[2024-02-01 07:03] LABS: Blood Urea Nitrogen 26 mg/dL (9-16); C Reactive Protein 4.28 mg/dL (< or = 0.50); Calcium 8.4 mg/dL (8.4-10.2); Creatinine Clr Calc Pharmacy 66.1; Estimated Glomerular Filt Rate > 60; Glucose Random 103 mg/dL (60-115); Lactate Dehydrogenase 562 U/L (118-273)
--- NOTE | 2024-02-01 07:11 | PC.NURSE ---
Upon initial assessment- Pt A+Ox4, pleasant with disorganized speech/ thought pattern. Able to follow commands. AHLL. On 6L [place], sating >90%. Some SOB with activity. Bilateral lower lobe fine crackles. NSR on tele. Approx 0100- episode of hypoxia, pt sating 70s on 6L [place]. Pt with persistent dry/hacking cough and increased work of breathing. Pt complaining of mild chest pain, states it is not new and been intermittent since admission. Bilateral lower lobe fine crackles. MD and RT notified. Breathing tx given with no improvement. Pt placed on 15L Oxymask to maintain O2 >90%. Chest XR obtained- see report. Labs obtained- WBC 14.6, Lactic 3.9, Potassium 6.0, BNP 182, Ddimer 2,015. SubQ Lovenox ordered and administered. SCDs applied to pt. Amp of D50, 5units IVP Insulin and 500ml NS bolus administered as ordered. PRN Robitussin given with some effect. Chest CTA obtained- see report. Approx 0600- pt continues to have persistent dry/hacking cough, now satting 85-88% on 15L Oxymask- MD notified. Pt placed on High Flow NC as ordered to maintain O2 >90%.
[2024-02-01 07:16] LABS: Anion Gap 15 (12-20); Carbon Dioxide 19 mmol/L (22-29); Chloride 110 mmol/L (96-108); Lactic Acid 2.5 mmol/L (0.5-2.0); Potassium 4.4 mmol/L (3.3-5.1); Sodium 140 mmol/L (135-145)
[2024-02-01 08:34] LABS: Reflex Lactate? Lactic Acid Added
[2024-02-01] MEDS: Piperacillin Sodium/Tazobactam 4.5 GM in 0.9 % Sodium Chloride 100 ML IV ×3 (08:57→22:51)
[2024-02-01] MEDS: vancomycin/NS 2,000 MG/500 ML PLAST..BAG 250 MG IV (08:57)
[2024-02-01] MEDS: dexAMETHasone sod phosphate 4 MG/ML VIAL 6 MG IVPUSH (08:58)
[2024-02-01] MEDS: 0.9 % Sodium Chloride Flush 3 ML SYRINGE IVFLUSH ×3 (08:58→20:57)
[2024-02-01] MEDS: Isosorbide Mononitrate 30 MG TAB.ER.24H PO (08:58)
[2024-02-01] MEDS: 0.9 % Sodium Chloride 1,000 ML 100 ML IVCONT (08:58)
[2024-02-01] MEDS: lisinopriL 10 MG TABLET PO (08:59)
[2024-02-01] MEDS: Multivitamin TABLET 1 TAB PO (08:59)
[2024-02-01] MEDS: Aspirin Enteric Coated 81 MG TABLET.DR PO (08:59)
[2024-02-01] MEDS: Metoprolol Succinate ER 25 MG TAB.ER.24H PO (08:59)
[2024-02-01 09:25] LABS: ~Lactic Acid-LAB USE ONLY 2.8 mmol/L (0.5-2.0)
--- NOTE | 2024-02-01 09:45 | PHA.PROG ---
Admission Date/Time: January 30, 2024 14:50 Indication: SEPSIS Weight in k.379 kg Adjusted body weight in K.411 [place] body weight in K.1 Obesity Dosing Indication % IBW: 27.4 Serum Creatinine - Last 168 Hours 01/30/24 01/31/24 02/01/24 10:52 06:28 02:52 Creatinine 1.13 0.88 0.97 02/01/24 02/01/24 06:29 06:29 Creatinine 0.87 Cancelled Estimated CrCl and GFR - Last 168 Hours 01/30/24 01/31/24 02/01/24 10:52 06:28 02:52 Estim Creat Clear Calc 50.9 65.3 59.3 Estimated GFR > 60 > 60 > 60 02/01/24 02/01/24 02/01/24 06:29 06:29 06:29 Estim Creat Clear Calc 66.1 Cancelled Estimated GFR > 60 Cancelled Vancomycin Loading Dose: 2000 MG Current Vancomycin Dosing Regimen: 1000 MG Q12 Vancomycin Monitoring using AUC goal of 400 - 600 range with trough as surrogate marker: 469 Date and Time for next Vancomycin Level to be drawn: 02/01 @0600 Pharmacist Comments on Vancomycin Plan: APPROPRIATE LOAD GIVEN. INSIGHT RECOMENDING Q12 DOSING DUE TO GOOD RENAL FUNCTION HOWEVER DUE TO PT ADVANCED AGE AND CONCURRENT ZOSYN WILL OBTAIN RANDOM LEVEL BEFORE 3RD DOSE TO ENSURE SAFETY. CONTINUE DAILY RENAL MONITORING WELL. Vancomycin dosing will take advantage of [employer] as a clinical decision support tool that uses Bayesian modeling to calculate individual patient's pharmacokinetic parameters and forecast the patient's drug concentration time course with the target goal AUC 24 range of 400 - 600 mg/L/hr.
[2024-02-01 10:57] LABS: Reflex Lactate? 2 Y
--- NOTE | 2024-02-01 10:59 | P.CONPL_ITS ---
History of Present Illness History of Present Illness Consult date: 02/01/24 Chief complaint: COVID+, pneumonia, hypoxia Narrative: 83-year-old gentleman, remote smoker in his 20s and 30s, quit 40 years prior with underlying history of hypertension, CAD status post stenting admitted on 01/30/2024 with history of myalgias and worsening dyspnea for approximately 2 weeks. Patient was COVID positive on home test a day prior to admission. On ER evaluation he was significantly hypoxic requiring supplemental oxygen. Patient was started on empiric antibiotics and systemic glucocorticoids and admitted to telemetry. Hospital course is significant for progressive hypoxia, now requiring maximum support with high-flow nasal cannula. His CT angio chest demonstrated no pulmonary emboli, but some pulmonary edema and what appears to be bacterial superinfection of underlying viral pneumonia. Review of Systems 2 Constitutional: Constitutional: Denies daytime sleepiness, Denies excessive sweating, Denies fatigue, Denies fever(s), Denies lethargy, Denies malaise, Denies night sweats, Denies snoring and Denies weight loss Eyes: Eyes: Denies blurry vision and Denies itchy eyes ENT: Denies nasal congestion, Denies post nasal drip, Denies sinus pain, Denies sinus pressure and Denies other ( Thrush) Cardiovascular: Cardiovascular: Denies chest pain, Denies pedal edema, Reports dyspnea, Reports dyspnea on exertion, Denies orthopnea and Denies paroxysmal nocturnal dyspnea Respiratory: Respiratory: Reports cough, Denies hemoptysis, Denies excessive phlegm production, Reports dyspnea, Reports dyspnea on exertion, Denies snoring and Denies wheezing Gastrointestinal: Gastrointestinal: Denies abdominal pain and Denies heartburn Musculoskeletal: Musculoskeletal: Denies myalgias, Denies arthralgias and Denies joint swelling Integumentary/Breasts: Skin/Breast: Denies rash Neurologic: Denies memory loss and Denies seizure-like activity Psychiatric: Psychiatric: Denies abnormal sleep pattern, Denies anxiety and Denies memory loss Endocrine: Endocrine: Denies excessive sweating, Denies fatigue and Denies heat intolerance Hematologic/Lymphatic: Hematologic/Lymphatic: Denies easy bruising Allergic/Immunologic: Allergic/Immunologic: Denies itchy eyes, Denies seasonal rhinorrhea and Denies wheezing PMFSH Past Medical History Medical History (Updated 01/31/24 @ 13:12 by Kenisha Diaz MD) HLD (hyperlipidemia) HTN (hypertension) CAD (coronary artery disease) Social History Social History Household Members: Spouse Housing: House Do you presently have visiting nurse or other home services: No Patient Tobacco Use Status: Former Tobacco user Smoked in Last 30 Days: No Use of substances other than those prescribed or required for medical reasons: No Currently Displaying Signs/Symptoms of Drug Intoxication Withdrawal: No Have you been hit, kicked, punched, or otherwise hurt by someone within the past year? If so, by whom?: No Do you feel safe in your current relationship?: Yes Is there a partner from a previous relationship who is making you feel unsafe now?: No Are you made to feel afraid or neglected: No Advance Directives: No Advance Directives Information Provided: No Nutrition Risks: No Nutritional Risk service: No Meds Allergies Allergy/AdvReac Type Severity Reaction Status Date / Time atorvastatin Allergy Unknown Verified 01/30/24 10:15 cephalexin Allergy Unknown Verified 01/30/24 10:15 doxycycline Allergy Unknown Verified 01/30/24 10:15 neomycin Allergy Unknown Verified 01/30/24 10:15 Active Medications: Current Medications Acetaminophen (Acetaminophen 325 Mg Tablet) 650 mg PO Q6H PRN PRN Reason: Pain, Mild (Pain Scale 1-3) Albuterol/Ipratropium (Albuterol/Iprat 2.5/0.5mg 3 Ml Ampul.Neb) 3 ml INHALE RQ4H WHILE AWAKE [facility] Last Admin: 02/01/24 08:01 Dose: 3 ml Aspirin (Aspirin Enteric Coated 81 Mg Tablet.) 81 mg PO DAILY [facility] Last Admin: 02/01/24 08:59 Dose: 81 mg Dexamethasone Sodium Phosphate (Dexamethasone Sod Phosphate 4 Mg/Ml Vial) 4 mg IVPUSH BID [facility] Docusate Sodium (Docusate Sodium 100 Mg Capsule) 100 mg PO DAILY PRN PRN Reason: Constipation Enoxaparin Sodium (Enoxaparin Sodium 40 Mg/0.4 Ml Syringe) 40 mg SUBCUT Q24H [facility] Last Admin: 02/01/24 02:52 Dose: 40 mg Guaifenesin/Dextromethorphan (Guaifenesin Dm 200/20/10 Ml 10 Ml Syrup) 10 ml PO Q6H PRN PRN Reason: Cough Last Admin: 02/01/24 10:36 Dose: 10 ml Sodium Chloride (Ns) 1,000 mls @ 100 mls/hr IVCONT .Q10H [facility] Last Admin: 02/01/24 08:58 Dose: 100 mls/hr Vancomycin HCl 1,000 mg/ (Sodium Chloride) 270 mls @ 270 mls/hr IV Q12H [facility] Piperacillin Sod/Tazobactam (Sod 4.5 gm/ Sodium Chloride) 100 mls @ 200 mls/hr IV Q6H [facility] Isosorbide Mononitrate (Isosorbide Mononitrate 30 Mg Tab.Er.24h) 30 mg PO DAILY [facility]; Protocol Last Admin: 02/01/24 08:58 Dose: 30 mg Lisinopril (Lisinopril 10 Mg Tablet) 10 mg PO DAILY [facility]; Protocol Last Admin: 02/01/24 08:59 Dose: 10 mg Melatonin (Melatonin 3 Mg Tablet) 6 mg PO BEDTIME PRN PRN Reason: Insomnia Metoprolol Succinate (Metoprolol Succinate Er 25 Mg Tab.Er.24h) 25 mg PO DAILY [facility]; Protocol Last Admin: 02/01/24 08:59 Dose: 25 mg Multivitamins/Vitamin C (Multivitamin Tablet) 1 tab PO DAILY [facility] Last Admin: 02/01/24 08:59 Dose: 1 tab Pt Own (Tafluprost ( Pf) 0.0015 % Dropperette) 1 drop EYE-BOTH DAILY [facility] Last Admin: 02/01/24 08:58 Dose: 1 drop (Dorzolamide-Timolol (Pf) [Cosopt (Pf)] 2-0.5 % Dropperette) 1 drop EYE-BOTH BID [facility] Last Admin: 02/01/24 08:58 Dose: 1 drop Ondansetron HCl (Ondansetron Hcl 4 Mg/2 Ml Vial) 4 mg IVPUSH Q8H PRN PRN Reason: Nausea and Vomiting Pharmacy Consult (Consult Rx Vancomycin Dosing) 1 each MISCELLANE DAILY PRN PRN Reason: Consult order Sodium Chloride (0.9 % Sodium Chloride Flush 3 Ml Syringe) 3 ml IVFLUSH QSHIFT [facility] Last Admin: 02/01/24 08:58 Dose: 3 ml Home Medications Medication Instructions Recorded Confirmed Last Taken Type aspirin 81 mg tablet,delayed 81 mg PO DAILY 01/30/24 01/30/24 Unknown History release dorzolamide-timolol (PF) 2 %-0.5 % 1 drp ophthalmic (eye) BID 01/30/24 01/30/24 Unknown History eye drops in a dropperette (Cosopt (PF)) isosorbide mononitrate 30 mg 30 mg PO DAILY 01/30/24 01/30/24 Unknown History tablet,extended release 24 hr lisinopril 10 mg tablet 10 mg PO DAILY 01/30/24 01/30/24 Unknown History metoprolol succinate 25 mg 25 mg PO DAILY 01/30/24 01/30/24 Unknown History tablet,extended release 24 hr multivitamin 1 tab PO DAILY 01/30/24 01/30/24 Unknown History rosuvastatin 10 mg tablet 10 mg PO BEDTIME 01/30/24 01/30/24 Unknown History tafluprost (PF) 0.0015 % eye drops 1 drp ophthalmic (eye) DAILY 01/30/24 01/30/24 Unknown History in a dropperette triamcinolone acetonide 0.1 % 1 appl topical BID-TID 01/30/24 01/30/24 Unknown History topical cream Physical Exam 2 Vital Signs: Vital Signs: Last Vital Signs Temp 97.2 F 02/01/24 07:36 Pulse 74 02/01/24 08:06 Resp 22 H 02/01/24 08:06 BP 99/67 02/01/24 07:36 Pulse Ox 92 02/01/24 07:36 O2 Del Method High Flow Nasal C annula 02/01/24 07:36 O2 Flow Rate 40 02/01/24 07:36 FiO2 100 02/01/24 07:36 Oxygen Flow Rate 4 01/30/24 10:16 BMI result Body Mass Index 27.4 Const: General: no acute distress and alert Nutritional Appearance: not obese Orientation/consciousness: Other orientation findings ( oriented) HEENT: Head: Yes atraumatic Eyes: General: appearance normal, both eyes and all related structures S clerae: sclerae normal EOM: EOMs intact bilaterally Neck: Neck: Yes supple Lymphatic: no lymphadenopathy noted Resp: Effort & Inspection: normal respiratory effort and no use of accessory muscles Auscultation: crackles (Mild bilateral) Cardio: Rate: regular rate Rhythm: regular rhythm Heart sounds: no gallops, no murmurs and no rubs Skin: General skin exam: other ( warm) Extrem: General: No clubbing, No cyanosis and Yes edema (Trace bilateral) Results Laboratory Findings 02/01/24 06:28 02/01/24 06:29 Abnormal lab findings: Abnormal Labs 01/30/24 01/30/24 01/31/24 10:52 13:31 06:28 WBC RBC 4.28 L 4.25 L Hgb 13.2 L 13.3 L Hct 39.3 L 38.7 L Plt Count 155 L Immature Gran % (Auto) 0.8 H Neut % (Auto) 82.4 H 89.0 H Lymph % (Auto) 10.0 L 6.0 L Lymph # (Auto) 0.7 L 0.6 L Abs Immat Gran (auto) 0.08 H Absolute Neuts (auto) 9.4 H Potassium Chloride Carbon Dioxide 20 L BUN 25 H 26 H Random Glucose 137 H Lactic Acid Lactic Acid F/U @ 2Hr Calcium 8.2 L Total Bilirubin 1.4 H Direct Bilirubin 0.6 H AST 51 H 58 H ALT 48 H 62 H Lactate Dehydrogenase C-Reactive Protein B-Natriuretic Peptide 105 H Total Protein 6.4 L 6.2 L Albumin 3.4 L 3.3 L Ur Specific [place] >= 1.030 H Urine Protein 100 (2+) H Ur Leukocyte Esterase Trace H SARS-CoV-2 RNA (RT-PCR) POSITIVE A 02/01/24 02/01/24 02/01/24 02:52 06:28 06:29 WBC 14.6 H 16.9 H RBC 4.28 L 4.28 L Hgb 13.4 L 13.1 L Hct 39.5 L 39.5 L Plt Count Immature Gran % (Auto) 0.8 H Neut % (Auto) 92.5 H Lymph % (Auto) 4.0 L Lymph # (Auto) 0.6 L Abs Immat Gran (auto) 0.12 H Absolute Neuts (auto) 13.5 H Potassium 6.0 H* D Chloride 111 H 110 H Carbon Dioxide 20 L 19 L BUN 28 H 26 H Random Glucose 160 H Lactic Acid 3.9 H* 2.5 H* Lactic Acid F/U @ 2Hr Calcium Total Bilirubin Direct Bilirubin AST 73 H ALT 91 H Lactate Dehydrogenase 562 H C-Reactive Protein 4.28 H B-Natriuretic Peptide 182 H Total Protein Albumin 3.4 L Ur Specific [place] Urine Protein Ur Leukocyte Esterase SARS-CoV-2 RNA (RT-PCR) 02/01/24 08:53 WBC RBC Hgb Hct Plt Count Immature Gran % (Auto) Neut % (Auto) Lymph % (Auto) Lymph # (Auto) Abs Immat Gran (auto) Absolute Neuts (auto) Potassium Chloride Carbon Dioxide BUN Random Glucose Lactic Acid Lactic Acid F/U @ 2Hr 2.8 H* Calcium Total Bilirubin Direct Bilirubin AST ALT Lactate Dehydrogenase C-Reactive Protein B-Natriuretic Peptide Total Protein Albumin Ur Specific [place] Urine Protein Ur Leukocyte Esterase SARS-CoV-2 RNA (RT-PCR) Assessment and Plan (1) Acute respiratory failure with hypoxia: Status: Acute (2) COVID-19: Status: Acute (3) Pneumonia: Status: Acute Plan Impression: 83-year-old gentleman admitted with acute hypoxic respiratory failure secondary to bacterial superinfection of underlying COVID-19 viral pneumonia, now requiring high-flow supplemental oxygen to maintain normal oximetry. No evidence of pulmonary emboli. Recommendations: Agree with current regimen of systemic glucocorticoids and broad-spectrum antibiotics. Consider obtaining 2D echocardiogram. Procedures Date of Service Date of Service: 02/01/24
--- NOTE | 2024-02-01 11:03 | HO.PM.IMPN ---
Subjective Subjective Date of Service: 02/01/24 Interval History: Seen and evaluated this morning requiring more O2 supplement overnight up to high flow Lactic acid elevated Review of Systems Review of Systems: Yes all other systems are reviewed and are negative Physical Exam Vital Signs: Vital Signs: Last Vital Signs Temp 97.2 F 02/01/24 07:36 Pulse 74 02/01/24 08:06 Resp 22 H 02/01/24 08:06 BP 99/67 02/01/24 07:36 Pulse Ox 92 02/01/24 07:36 O2 Del Method High Flow Nasal C annula 02/01/24 07:36 O2 Flow Rate 40 02/01/24 07:36 FiO2 100 02/01/24 07:36 Oxygen Flow Rate 4 01/30/24 10:16 BMI result Body Mass Index 27.4 Const: Other: Constitutional : Awake, interactive, not in distress Neck : Normal inspection, Supple Cardiovascular : RRR, no JVP, no lower extremity edema Respiratory : good bilateral air entry, basal crackles, wheezes or rhonchi, On High flow O2 supplement Gastrointestinal: soft, lax, Normal bowel sounds, Non tender Skin : Warm, Dry Neurological : Alert & oriented x3, No focal deficit , Objective Data Active Medications Acetaminophen (Acetaminophen 325 Mg Tablet) 650 mg PO Q6H PRN PRN Reason: Pain, Mild (Pain Scale 1-3) Albuterol/Ipratropium (Albuterol/Iprat 2.5/0.5mg 3 Ml Ampul.Neb) 3 ml INHALE RQ4H WHILE AWAKE [facility] Last Admin: 02/01/24 08:01 Dose: 3 ml Documented By: VIKTOR Aspirin (Aspirin Enteric Coated 81 Mg Tablet.) 81 mg PO DAILY [facility] Last Admin: 02/01/24 08:59 Dose: 81 mg Documented By: KATIE Dexamethasone Sodium Phosphate (Dexamethasone Sod Phosphate 4 Mg/Ml Vial) 4 mg IVPUSH BID [facility] Docusate Sodium (Docusate Sodium 100 Mg Capsule) 100 mg PO DAILY PRN PRN Reason: Constipation Enoxaparin Sodium (Enoxaparin Sodium 40 Mg/0.4 Ml Syringe) 40 mg SUBCUT Q24H [facility] Last Admin: 02/01/24 02:52 Dose: 40 mg Documented By: DOMINIC Guaifenesin/Dextromethorphan (Guaifenesin Dm 200/20/10 Ml 10 Ml Syrup) 10 ml PO Q6H PRN PRN Reason: Cough Last Admin: 02/01/24 10:36 Dose: 10 ml Documented By: KATIE Sodium Chloride (Ns) 1,000 mls @ 100 mls/hr IVCONT .Q10H [facility] Last Admin: 02/01/24 08:58 Dose: 100 mls/hr Documented By: KATIE Vancomycin HCl 1,000 mg/ (Sodium Chloride) 270 mls @ 270 mls/hr IV Q12H [facility] Piperacillin Sod/Tazobactam (Sod 4.5 gm/ Sodium Chloride) 100 mls @ 200 mls/hr IV Q6H [facility] Isosorbide Mononitrate (Isosorbide Mononitrate 30 Mg Tab.Er.24h) 30 mg PO DAILY [facility]; Protocol Last Admin: 02/01/24 08:58 Dose: 30 mg Documented By: KATIE Lisinopril (Lisinopril 10 Mg Tablet) 10 mg PO DAILY [facility]; Protocol Last Admin: 02/01/24 08:59 Dose: 10 mg Documented By: KATIE Melatonin (Melatonin 3 Mg Tablet) 6 mg PO BEDTIME PRN PRN Reason: Insomnia Metoprolol Succinate (Metoprolol Succinate Er 25 Mg Tab.Er.24h) 25 mg PO DAILY [facility]; Protocol Last Admin: 02/01/24 08:59 Dose: 25 mg Documented By: KATIE Multivitamins/Vitamin C (Multivitamin Tablet) 1 tab PO DAILY [facility] Last Admin: 02/01/24 08:59 Dose: 1 tab Documented By: KATIE Pt Own (Tafluprost ( Pf) 0.0015 % Dropperette) 1 drop EYE-BOTH DAILY [facility] Last Admin: 02/01/24 08:58 Dose: 1 drop Documented By: KATIE (Dorzolamide-Timolol (Pf) [Cosopt (Pf)] 2-0.5 % Dropperette) 1 drop EYE-BOTH BID [facility] Last Admin: 02/01/24 08:58 Dose: 1 drop Documented By: KATIE Ondansetron HCl (Ondansetron Hcl 4 Mg/2 Ml Vial) 4 mg IVPUSH Q8H PRN PRN Reason: Nausea and Vomiting Pharmacy Consult (Consult Rx Vancomycin Dosing) 1 each MISCELLANE DAILY PRN PRN Reason: Consult order Sodium Chloride (0.9 % Sodium Chloride Flush 3 Ml Syringe) [facility] Admin: 02/01/24 08:58 Dose: 3 ml Documented By: KATIE Labs 02/01/24 06:28 02/01/24 06:29 Labs: Laboratory Results - last 24 hr 02/01/24 02/01/24 02/01/24 02:52 06:28 06:29 MCV 92.3 92.3 MCH 31.3 30.6 MCHC 33.9 33.2 RDW 12.9 13.0 Plt Count 192 192 MPV 11.2 11.3 Immature Gran % (Auto) 0.8 H Neut % (Auto) 92.5 H Lymph % (Auto) 4.0 L [place] % (Auto) 2.6 Eos % (Auto) 0.0 Baso % (Auto) 0.1 Lymph # (Auto) 0.6 L [place] # (Auto) 0.4 Eos # (Auto) 0.0 Baso # (Auto) 0.0 Abs Immat Gran (auto) 0.12 H Absolute Neuts (auto) 13.5 H Absolute Nucleated RBC 0.000 0.000 Nucleated RBC % (auto) 0.0 0.0 Smear Tech's Comments VERIFIED D-Dimer High Sensitivty 2014 Anion Gap 19 15 Estim Creat Clear Calc 59.3 Estimated GFR > 60 Random Glucose 160 H Lactic Acid 3.9 H* Lactic Acid F/U @ 2Hr Calcium 9.2 D Magnesium 2.3 Total Bilirubin 0.9 AST 73 H ALT 91 H Alkaline Phosphatase 105 Lactate Dehydrogenase Troponin I High Sens 13.2 C-Reactive Protein B-Natriuretic Peptide 182 H Total Protein 6.5 Albumin 3.4 L 02/01/24 02/01/24 02/01/24 06:29 06:29 06:29 MCV MCH MCHC RDW Plt Count MPV Immature Gran % (Auto) Neut % (Auto) Lymph % (Auto) [place] % (Auto) Eos % (Auto) Baso % (Auto) Lymph # (Auto) [place] # (Auto) Eos # (Auto) Baso # (Auto) Abs Immat Gran (auto) Absolute Neuts (auto) Absolute Nucleated RBC Nucleated RBC % (auto) Smear Tech's Comments D-Dimer High Sensitivty Anion Gap Cancelled Estim Creat Clear Calc 66.1 Cancelled Estimated GFR > 60 Cancelled Random Glucose 103 Lactic Acid Lactic Acid F/U @ 2Hr Calcium Magnesium Total Bilirubin AST ALT Alkaline Phosphatase Lactate Dehydrogenase Troponin I High Sens C-Reactive Protein B-Natriuretic Peptide Total Protein Albumin 02/01/24 02/01/24 02/01/24 06:29 06:29 08:53 MCV MCH MCHC RDW Plt Count MPV Immature Gran % (Auto) Neut % (Auto) Lymph % (Auto) [place] % (Auto) Eos % (Auto) Baso % (Auto) Lymph # (Auto) [place] # (Auto) Eos # (Auto) Baso # (Auto) Abs Immat Gran (auto) Absolute Neuts (auto) Absolute Nucleated RBC Nucleated RBC % (auto) Smear Tech's Comments D-Dimer High Sensitivty Anion Gap Estim Creat Clear Calc Estimated GFR Random Glucose Cancelled Lactic Acid 2.5 H* Lactic Acid F/U @ 2Hr 2.8 H* Calcium 8.4 D Cancelled Magnesium Total Bilirubin AST ALT Alkaline Phosphatase Lactate Dehydrogenase 562 H Troponin I High Sens C-Reactive Protein 4.28 H B-Natriuretic Peptide Total Protein Albumin Assessment and Plan (1) Transaminitis: Status: Acute (2) Pneumonia: Status: Acute (3) COVID-19: Status: Acute (4) Acute respiratory failure with hypoxia: Status: Acute Plan Pt is an 83-year-old male with a PMH significant for?HTN, HLD, CAD s/p stenting, and hx of skin cancer who presents to the ED with?cough, SOB, difficulty breathing, and myalgias x1 week. Pt will be admitted to the hospital for treatment and further evaluation of acute hypoxic respiratory failure in the setting of COVID infection with superimposed pneumonia. Acute hypoxic respiratory failure in the setting of COVID infection with superimposed pneumonia Start High Flow O2 CTA showing infiltrates Change Abx to Vacomycin and Zosyn Continue dexamethasone, DuoNebs, guaifenesin Will hold off on remdesivir; pt has been experiencing symptoms for over one week and unlikely to be of much benefit Pulm consult appreciated, to get an Echo Titrate supplemental O2 >92, wean as tolerated Lactic acidosis Likely 2/2 Hypoxia and Albuterol not due to sepsis HTN Hold lisinopril for low BP HLD/CAD Continue statin, aspirin Full Code DVT Prophylaxis: Lovenox Pt will require a hospitalization overnight for treatment of acute hypoxic respiratory failure in setting of COVID infection with superimposed pneumonia. Patient will require hospitalization for administration of supplemental O2, IV steroids, and IV antibiotics.? Quality Stroke Does the patient have a stroke diagnosis?: No VTE Prior VTE?: No VTE Risk Level:: Medical - moderate - high VTE Device Contraindication: Treatment Not Indicated VTE Drug Contraindication: N/A - Med Ordered
[2024-02-01] MEDS: 0.9 % Sodium Chloride 1,000 ML 999 ML IV (11:59)
[2024-02-01] MEDS: Albumin Human 25 % 100 ML IV ×2 (12:00→13:52)
[2024-02-01 12:23] LABS: Venous Blood Gas Refer to POC result
[2024-02-01 12:24] LABS: VBG Base Excess -2.9 mmol/L; VBG HCO3 21 mmol/L (22-26); VBG pCO2 35 mmHg; VBG pH 7.38 (7.32-7.43); VBG pO2 58 mmHg
[2024-02-01] MEDS: vancomycin HCL 1,000 MG in 0.9 % Sodium Chloride 250 ML 270 MG IV (20:43)
[2024-02-01] MEDS: dexAMETHasone sod phosphate 4 MG/ML VIAL IVPUSH (20:44)
[2024-02-02] VITALS (30 sets, daily range): BP systolic 92–186; BP diastolic 55–115; PULSE 74–96; RESP 20–48; TEMP 36.3–37.8; O2SAT 88–98; BMI 26.1
--- NOTE | 2024-02-02 | ECG_ITS ---
Test Reason : Elevated troponin Blood Pressure : / mmHG Vent. Rate : 092 BPM Atrial Rate : 092 BPM P-R Int : 144 ms QRS Dur : 098 ms QT Int : 354 ms P-R-T Axes : 038 -17 -03 degrees QTc Int : 437 ms Normal sinus rhythm Incomplete right bundle branch block Minimal voltage criteria for LVH, may be normal variant ( R in aVL ) ST & T wave abnormality, consider anterior ischemia Abnormal ECG When compared with ECG of 30-JAN-2024 10:34, Premature atrial complexes are no longer Present T wave inversion now evident in Anterior leads Referred By: Kirstie Aguila Electronically Signed By:Jesus Jenkins
[2024-02-02 00:08] LABS: Basophils Percent Auto 0.1 % (0-2); Hematocrit 37.5 % (42.0-52.0); Hemoglobin 12.6 g/dl (14.0-18.0); Imm Gran Abs Auto 0.07 X10*3/uL (0.00-0.03); Imm Gran Pct Auto 0.6 % (0.0-0.4); Lymphocytes Absolute Auto 0.3 X10*3/uL (1.2-4.9); MANUAL DIFF FLAG SCAN; Mean Corpuscular HGB Conc 33.6 g/dl (31.0-36.0); Mean Corpuscular Volume 92.1 fL (80.0-98.0); Mean Platelet Volume 10.7 fL (9.4-12.4); Monocytes Absolute Auto 0.3 X10*3/uL (0.1-1.2); Monocytes Percent Auto 2.2 % (2-11); Neutrophils Absolute Auto 10.7 x10*3/uL (2.0-8.3); Neutrophils Percent Auto 94.1 % (45-73); Platelet Count 191 X10*3/uL (160-400); Red Blood Count 4.07 X10*6/uL (4.60-5.80); Red Cell Distribution Width 13.1 % (11.0-16.0); SCAN SMEAR FLAG 1; White Blood Count 11.4 X10*3/uL (4.8-10.8)
[2024-02-02 00:09] LABS: Venous Blood Gas Refer to POC result
[2024-02-02 00:16] LABS: VBG Base Excess -5.1 mmol/L; VBG HCO3 18 mmol/L (22-26); VBG pCO2 30 mmHg; VBG pH 7.39 (7.32-7.43); VBG pO2 96 mmHg
[2024-02-02 00:25] LABS: SLIDE REVIEW VERIFIED
[2024-02-02 00:44] LABS: Lactic Acid 2.3 mmol/L (0.5-2.0)
[2024-02-02 00:54] LABS: Alanine Aminotransferase 101 U/L (0-40); Albumin Level 3.6 g/dL (3.5-5.0); Alkaline Phosphatase 141 U/L (39-117); Anion Gap 16 (12-20); Aspartate Amino Transferase 86 U/L (5-37); Bilirubin Total 1.5 mg/dL (0.0-1.0); Blood Urea Nitrogen 24 mg/dL (9-16); Calcium 8.1 mg/dL (8.4-10.2); Carbon Dioxide 18 mmol/L (22-29); Chloride 112 mmol/L (96-108); Creatinine Clr Calc Pharmacy 59.9; Estimated Glomerular Filt Rate > 60; Glucose Random 153 mg/dL (60-115); Potassium 4.8 mmol/L (3.3-5.1); Sodium 141 mmol/L (135-145); Total Protein 6.2 g/dL (6.5-8.0)
[2024-02-02 01:18] LABS: Troponin-I High Sensitivity 368.1 ng/L (<3.5-35.0)
[2024-02-02 02:05] LABS: Reflex Lactate? Lactic Acid Added
[2024-02-02 03:17] LABS: ~Lactic Acid-LAB USE ONLY 1.9 mmol/L (0.5-2.0)
[2024-02-02] MEDS: Enoxaparin Sodium 40 MG/0.4 ML SYRINGE SUBCUT (03:40)
[2024-02-02] MEDS: Piperacillin Sodium/Tazobactam 4.5 GM in 0.9 % Sodium Chloride 100 ML IV ×4 (03:40→20:24)
[2024-02-02] MEDS: Furosemide 40 MG/4 ML VIAL IVPUSH (03:40)
--- NOTE | 2024-02-02 04:59 | PM.EVENT ---
Documented by User: Clara Donnelly NP 02/02/24 05:02 Event Note Date of Service: 02/02/24 Event Note: 83-year-old male with a PMH significant for HTN, HLD, CAD s/p stenting, and hx of skin cancer who presents to the ED with cough, SOB, difficulty breathing, and myalgias x1 week admitted acute hypoxic respiratory failure in the setting of COVID infection with superimposed pneumonia.? Overnight becoming tachypneic, hypertensive, requiring 50L/100% FiO2 on High flow nasal cannula with O2 Sat in the 80?s. CXR showed progression of the diffuse patchy consolidative and hazy airspace opacities throughout both lungs, left side greater than right. He was given lasix 40 mg on the floor and transferred to the ICU. On my exam the patient was alert and confused, RR in the 40?s, bilateral rales auscultated throughout. BP stable. Rescue BiPAP was initiated. Will monitor and reassess in am. Time Spent With Patient Time: Total time managing care of this patient today ____ minutes. Documented by User: Timothy Johnson MD 02/02/24 10:03 Event Note Date of Service: 02/02/24
[2024-02-02 06:09] LABS: VBG HCO3 19 mmol/L (22-26); VBG pCO2 30 mmHg; VBG pO2 80 mmHg
[2024-02-02 06:17] LABS: Venous Blood Gas Refer to POC result
[2024-02-02 06:36] LABS: INTERNATIONAL NORM RATIO 1.2 (0.9-1.1); Prothrombin Time 14.1 SEC (11.1-13.3)
--- NOTE | 2024-02-02 06:40 | PC.NURSE ---
Patient transferred to ICU this morning at 04:03 from s4 for increasing O2 requirements requiring rescue bipap due to covid and pna. Pt is alert to staff entering room. Confused, oriented to himself, his , and the year only. Reoriented. Pt is forgetful and disorganized in answering most of his assessment questions; requires frequent redirecting and repetition of assessment questions. Tongue is midline. Follows basic commands. MAEE. SR with BBB on tele. Course crackles throughout. Pt transitioned to Bipap by RT per CUTTER OPERATOR BRICK Clara Donnelly orders on arrival to ICU from [facility]. Settings 14/8, rate 12, 100% Fio2, tolerating with spo2 maintained 90% and above. Pt is tolerating bipap with help of 1:1 sitter for redirection. RR improved on bipap, ranging low 20's to mid 30's from initial 40's on arrival. Vaca placed on arrival to ICU per CUTTER OPERATOR BRICK orders. Patent of cyu in adequate amounts s/p lasix recently given per report/chart review. Scattered bruising to extremities. Blanchable redness to buttocks with barrier cream applied and pt repositioned. Morning labs drawn and still in process/not yet resulted. Please see shift assessment, task, and MAR for full details. Handoff given to oncoming RN at 06:45.
[2024-02-02 06:46] LABS: Vancomycin Random 21.3 mcg/mL (15-20)
[2024-02-02 06:49] LABS: Basophils Percent Auto 0.1 % (0-2); Hematocrit 40.1 % (42.0-52.0); Hemoglobin 13.5 g/dl (14.0-18.0); Imm Gran Abs Auto 0.07 X10*3/uL (0.00-0.03); Imm Gran Pct Auto 0.7 % (0.0-0.4); Lymphocytes Absolute Auto 0.4 X10*3/uL (1.2-4.9); Lymphocytes Percent Auto 3.8 % (20-40); MANUAL DIFF FLAG SCAN; Mean Corpuscular HGB Conc 33.7 g/dl (31.0-36.0); Mean Corpuscular Hemoglobin 30.8 pg (27.0-33.0); Mean Corpuscular Volume 91.6 fL (80.0-98.0); Mean Platelet Volume 11.5 fL (9.4-12.4); Monocytes Absolute Auto 0.5 X10*3/uL (0.1-1.2); Monocytes Percent Auto 4.6 % (2-11); Neutrophils Absolute Auto 9.7 x10*3/uL (2.0-8.3); Neutrophils Percent Auto 90.8 % (45-73); Platelet Count 194 X10*3/uL (160-400); Red Blood Count 4.38 X10*6/uL (4.60-5.80); SCAN SMEAR FLAG 1; White Blood Count 10.7 X10*3/uL (4.8-10.8)
[2024-02-02 06:51] LABS: Alanine Aminotransferase 103 U/L (0-40); Albumin Level 3.8 g/dL (3.5-5.0); Alkaline Phosphatase 177 U/L (39-117); Anion Gap 17 (12-20); Aspartate Amino Transferase 76 U/L (5-37); Bilirubin Total 1.9 mg/dL (0.0-1.0); Blood Urea Nitrogen 28 mg/dL (9-16); Calcium 8.5 mg/dL (8.4-10.2); Carbon Dioxide 20 mmol/L (22-29); Chloride 111 mmol/L (96-108); Creatinine Clr Calc Pharmacy 47.9; Estimated Glomerular Filt Rate > 60; Glucose Random 124 mg/dL (60-115); Magnesium 2.2 mg/dL (1.6-2.6); Phosphorus 4.2 mg/dL (2.7-4.5); Potassium 4.8 mmol/L (3.3-5.1); Sodium 143 mmol/L (135-145); Total Protein 6.6 g/dL (6.5-8.0)
[2024-02-02 06:52] LABS: Troponin-I High Sensitivity 1598.6 ng/L (<3.5-35.0)
--- NOTE | 2024-02-02 06:56 | HE.PHANOTE ---
RE: vanco Trough came back at 21.3 on 02/01; decreased dose to 1250mg Q24H with predicted trough of 13.3 mg/L, AUC of 490 mg/L. getting a random before next dose today @1999 to make sure she is clearing
--- NOTE | 2024-02-02 07:06 | PC.NURSE ---
Pt tolerating high flow n/c at start of shift. He did have a few episodes of desatting when moving or when he removed his O2 which he did or attempted to do several times despite a rounder, camera, and freqent reorientation. At approx 2340 after RN Des had just left room we were alerted to dropping O2 sats by seed technician down to 70's. RN and SENIOR INTEGRATION ARCHITECT entered room to find pt garzon, minimally responsive with O2 pulled off. O2 reapplied, NRB placed over as pt did not come up with High flow alone. Rapid response immediately called. Dr. Gonzalez and team down to see pt. Labs, xray, meds as ordered, MD Gonzalez made immediately aware of critical Lactate and troponin. Ekg done. Pt recovered back to approximately his previous high flow needs and relative comfort with constant box packer at bedside. Pt rested for a while but became more sob and was reporting being too tired to breath. MD Gonzalez aware. IV lasix given with effect pending when pt accepted and transferred down ot ICU. Pt transferred without incident with all belongings.
[2024-02-02] MEDS: Albuterol/Iprat 2.5/0.5MG 3 ML AMPUL.NEB INHALE ×4 (08:06→19:41)
[2024-02-02] MEDS: Bumetanide 1 MG/4 ML VIAL IVPUSH (08:20)
[2024-02-02] MEDS: 0.9 % Sodium Chloride Flush 3 ML SYRINGE IVFLUSH ×2 (08:20→15:33)
--- NOTE | 2024-02-02 10:03 | P.PNCC_ITS ---
Subjective Subjective Date of Service: 02/02/24 Interval History: 83-year-old gentleman, remote smoker in his 20s and 30s, quit 40 years prior with underlying history of hypertension, CAD status post stenting admitted on 01/30/2024 with history of myalgias and worsening dyspnea for approximately 2 weeks. Patient was COVID positive on home test a day prior to admission. On ER evaluation he was significantly hypoxic requiring supplemental oxygen. Patient was started on empiric antibiotics and systemic glucocorticoids and admitted to telemetry. Hospital course is significant for progressive hypoxia, now requiring maximum support with high-flow nasal cannula. His CT angio chest demonstrated no pulmonary emboli, but some pulmonary edema and what appears to be bacterial superinfection of underlying viral pneumonia. Overnight 02/01/2024 patient with worsening hypoxia requiring initiation of BiPAP support and transferred to intensive care unit. Critical Care Time (minutes): 60 Physical Exam 2 Vital Signs: Vital Signs: Last Vital Signs Temp 99.0 F 02/02/24 09:00 Pulse 84 02/02/24 09:00 Resp 25 H 02/02/24 09:00 BP 132/83 02/02/24 09:00 Pulse Ox 93 02/02/24 09:00 O2 Del Method BiPAP 02/02/24 09:00 O2 Flow Rate 50 02/02/24 03:09 FiO2 85 02/02/24 09:00 Oxygen Flow Rate 4 01/30/24 10:16 BMI result Body Mass Index 26.1 Const: General: no acute distress, alert and awake Eyes: Sclerae: sclerae normal EOM: EOMs intact bilaterally Neck: Neck: Yes no lymphadenopathy, Yes trachea midline and Yes supple Resp: Effort & Inspection: normal respiratory effort and no respiratory distress Auscultation: crackles (Bilateral) Cardio: Rate: regular rate Rhythm: regular rhythm Heart sounds: no gallops, no murmurs and no rubs GI: Palpation (GI): Soft to palpation and Other GI palpation findings present ( Nontender) Auscultation: normal bowel sounds Extrem: General: Yes no pedal edema, No clubbing and No cyanosis Objective Data Labs 02/02/24 06:17 02/02/24 06:04 Labs: Laboratory Results - last 24 hr 02/01/24 02/01/24 02/02/24 11:11 12:17 00:00 WBC 11.4 H RBC 4.07 L Hgb 12.6 L Hct 37.5 L MCV 92.1 MCH 31.0 MCHC 33.6 RDW 13.1 Plt Count 191 MPV 10.7 Immature Gran % (Auto) 0.6 H Neut % (Auto) 94.1 H Lymph % (Auto) 3.0 L [place] % (Auto) 2.2 Eos % (Auto) 0.0 Baso % (Auto) 0.1 Lymph # (Auto) 0.3 L [place] # (Auto) 0.3 Eos # (Auto) 0.0 Baso # (Auto) 0.0 Abs Immat Gran (auto) 0.07 H Absolute Neuts (auto) 10.7 H Absolute Nucleated RBC 0.000 Nucleated RBC % (auto) 0.0 Smear Tech's Comments VERIFIED PT INR VBG pH 7.38 VBG pCO2 35 VBG pO2 58 VBG HCO3 21 L VBG O2 Saturation 87.0 VBG Base Excess -2.9 Sodium 141 Potassium 4.8 Chloride 112 H Carbon Dioxide 18 L Anion Gap 16 BUN 24 H Creatinine 0.96 Estim Creat Clear Calc 59.9 Estimated GFR > 60 Random Glucose 153 H Lactic Acid 2.3 H* Lactic Acid F/U @ 2Hr Lactic Acid F/U @ 4Hr 4.0 H* Calcium 8.1 L Phosphorus Magnesium Total Bilirubin 1.5 H Direct Bilirubin AST 86 H ALT 101 H Alkaline Phosphatase 141 H Troponin I High Sens 368.1 H* D Total Protein 6.2 L Albumin 3.6 Random Vancomycin 02/02/24 02/02/24 02/02/24 00:04 02:49 06:01 WBC RBC Hgb Hct MCV MCH MCHC RDW Plt Count MPV Immature Gran % (Auto) Neut % (Auto) Lymph % (Auto) [place] % (Auto) Eos % (Auto) Baso % (Auto) Lymph # (Auto) [place] # (Auto) Eos # (Auto) Baso # (Auto) Abs Immat Gran (auto) Absolute Neuts (auto) Absolute Nucleated RBC Nucleated RBC % (auto) Smear Tech's Comments PT INR VBG pH 7.39 7.40 VBG pCO2 30 30 VBG pO2 96 80 VBG HCO3 18 L 19 L VBG O2 Saturation 99.0 95.0 VBG Base Excess -5.1 -4.0 Sodium Potassium Chloride Carbon Dioxide Anion Gap BUN Creatinine Estim Creat Clear Calc Estimated GFR Random Glucose Lactic Acid Lactic Acid F/U @ 2Hr 1.9 Lactic Acid F/U @ 4Hr Calcium Phosphorus Magnesium Total Bilirubin Direct Bilirubin AST ALT Alkaline Phosphatase Troponin I High Sens Total Protein Albumin Random Vancomycin 02/02/24 02/02/24 06:04 06:17 WBC 10.7 RBC 4.38 L Hgb 13.5 L Hct 40.1 L MCV 91.6 MCH 30.8 MCHC 33.7 RDW 13.0 Plt Count 194 MPV 11.5 Immature Gran % (Auto) 0.7 H Neut % (Auto) 90.8 H Lymph % (Auto) 3.8 L [place] % (Auto) 4.6 Eos % (Auto) 0.0 Baso % (Auto) 0.1 Lymph # (Auto) 0.4 L [place] # (Auto) 0.5 Eos # (Auto) 0.0 Baso # (Auto) 0.0 Abs Immat Gran (auto) 0.07 H Absolute Neuts (auto) 9.7 H Absolute Nucleated RBC 0.000 Nucleated RBC % (auto) 0.0 Smear Tech's Comments PT 14.1 H INR 1.2 H VBG pH VBG pCO2 VBG pO2 VBG HCO3 VBG O2 Saturation VBG Base Excess Sodium 143 Potassium 4.8 Chloride 111 H Carbon Dioxide 20 L Anion Gap 17 BUN 28 H Creatinine 1.11 Estim Creat Clear Calc 47.9 Estimated GFR > 60 Random Glucose 124 H Lactic Acid Lactic Acid F/U @ 2Hr Lactic Acid F/U @ 4Hr Calcium 8.5 Phosphorus 4.2 Magnesium 2.2 Total Bilirubin 1.9 H Direct Bilirubin 1.0 H AST 76 H ALT 103 H Alkaline Phosphatase 177 H Troponin I High Sens 1598.6 H* D Total Protein 6.6 Albumin 3.8 Random Vancomycin 21.3 H Progress Note: A&P Assessment and plan (1) Acute respiratory failure with hypoxia: Status: Acute (2) COVID-19: Status: Acute (3) Pneumonia: Status: Acute (4) Congestive heart failure: Status: Acute Plan Assessment: 83-year-old gentleman admitted with acute hypoxic respiratory failure secondary to bacterial superinfection of underlying COVID pneumonia, further complicated by pulmonary edema, now requiring BiPAP support. Plan: Neuro: No acute issues. Cardiac: Acute congestive heart failure, improving with diuresis. 2D echocardiogram is pending. Pulmonary: Acute hypoxic respiratory failure secondary to bacterial superinfection of underlying COVID pneumonia, now requiring BiPAP support. Continue to titrate off as tolerated. Renal: No acute issues. Endo: No acute issues. GI: No acute issues. ID: Blood cultures are pending. Empirically covered with broad-spectrum antibiotics. Heme/Onc: No acute issues. Psych: No acute issues. Miscellaneous: No acute issues. Prophylaxis: Heparin Diet: Regular Critical care time spent: 60 minutes Quality Stroke Does the patient have a stroke diagnosis?: No VTE Prior VTE?: No VTE Risk Level:: Medical - moderate - high VTE Device Contraindication: Treatment Not Indicated VTE Drug Contraindication: N/A - Med Ordered
--- NOTE | 2024-02-02 12:43 | P.CDIM_ITS ---
PROVIDER RESPONSE TEXT: To clarify, the appropriate diagnosis supported by the clinical indicators: Other (explain): No evidence of lactic acidosis QUERY TEXT: PHYSICIAN'S DOCUMENTATION REQUEST Date of Query: 02/02/2024 11:46 AM EDT Patient Name: Panhco Mejia Admit Date: 01/30/2024 Dear Timothy Johnson, A review of the medical record indicates additional documentation may be needed. Please review below and update the documentation accordingly. Clinical Indicators: Progress note dated 01/31 - Plan: Lactic acidosis Likely 2/2 hypoxia and Albuterol not due to sepsis. Clarify which of the following accurately represents the acuity of the lactic acidosis: Possible options might include: Acute Acute on chronic Other Other (explain) Clinically unable to determine (explain) Thank you, Becky Cash, CCS, CDIS Use of terms such as suspected, likely, concern for, or probable (associated with a specific diagnosi s that is being evaluated, monitored, or treated as if it exists) are acceptable and can be coded in the inpatient se tting, when documented at the time of discharge. Please use your independent medical judgment in providing your response. THIS QUERY IS PART OF THE PERMANENT MEDICAL RECORD
[2024-02-02] MEDS: dexmedeTOMIDidine HCL/NS 400 MCG/100 ML INFUS..BTL 18.88 MCG IVCONT (14:23)
[2024-02-02 18:36] LABS: Vancomycin Random 16.9 mcg/mL (15-20)
--- NOTE | 2024-02-02 18:53 | HE.PHANOTE ---
Vancomycin Dosing Addendum Vancomycin level 16.1. Creatinine increasing. Adjusting vancomycin dose from 1000 mg q12h to 1000 mg q24h and will get daily levels. Next level 02/03/24 @1800.
[2024-02-02] MEDS: vancomycin HCL 1,000 MG in 0.9 % Sodium Chloride 250 ML 270 MG IV (20:23)
[2024-02-03] VITALS (52 sets, daily range): BP systolic 75–225; BP diastolic 13–92; PULSE 74–136; RESP 24–41; TEMP 24.8–39.5; O2SAT 88–95; BMI 24.6
[2024-02-03] MEDS: Piperacillin Sodium/Tazobactam 4.5 GM in 0.9 % Sodium Chloride 100 ML IV ×4 (01:58→20:00)
[2024-02-03] MEDS: dexmedeTOMIDidine HCL/NS 400 MCG/100 ML INFUS..BTL IVCONT (01:58)
[2024-02-03] MEDS: Enoxaparin Sodium 40 MG/0.4 ML SYRINGE SUBCUT (01:58)
[2024-02-03] MEDS: 0.9 % Sodium Chloride Flush 3 ML SYRINGE IVFLUSH ×4 (02:04→23:18)
[2024-02-03 04:33] LABS: VBG Base Excess -0.6 mmol/L; VBG HCO3 21 mmol/L (22-26); VBG pCO2 27 mmHg; VBG pH 7.49 (7.32-7.43); VBG pO2 85 mmHg
[2024-02-03 04:50] LABS: Venous Blood Gas Refer to POC result
[2024-02-03 04:54] LABS: Basophils Percent Auto 0.1 % (0-2); Hematocrit 38.1 % (42.0-52.0); Hemoglobin 13.2 g/dl (14.0-18.0); Lymphocytes Absolute Auto 0.5 X10*3/uL (1.2-4.9); Lymphocytes Percent Auto 4.8 % (20-40); MANUAL DIFF FLAG SCAN; Mean Corpuscular HGB Conc 34.6 g/dl (31.0-36.0); Mean Corpuscular Volume 89.4 fL (80.0-98.0); Monocytes Absolute Auto 0.2 X10*3/uL (0.1-1.2); Monocytes Percent Auto 2.2 % (2-11); Neutrophils Absolute Auto 9.4 x10*3/uL (2.0-8.3); Neutrophils Percent Auto 91.9 % (45-73); Platelet Count 155 X10*3/uL (160-400); Red Blood Count 4.26 X10*6/uL (4.60-5.80); Red Cell Distribution Width 12.9 % (11.0-16.0); SCAN SMEAR FLAG 1; White Blood Count 10.3 X10*3/uL (4.8-10.8)
[2024-02-03 05:11] LABS: Alanine Aminotransferase 74 U/L (0-40); Albumin Level 3.5 g/dL (3.5-5.0); Alkaline Phosphatase 175 U/L (39-117); Anion Gap 20 (12-20); Aspartate Amino Transferase 43 U/L (5-37); Bilirubin Total 2.7 mg/dL (0.0-1.0); Blood Urea Nitrogen 46 mg/dL (9-16); Calcium 8.8 mg/dL (8.4-10.2); Carbon Dioxide 20 mmol/L (22-29); Chloride 113 mmol/L (96-108); Creatinine Clr Calc Pharmacy 30.6; Estimated Glomerular Filt Rate 38; Glucose Random 170 mg/dL (60-115); Magnesium 2.5 mg/dL (1.6-2.6); Phosphorus 3.5 mg/dL (2.7-4.5); Sodium 149 mmol/L (135-145); Total Protein 6.3 g/dL (6.5-8.0)
[2024-02-03 05:15] LABS: SLIDE REVIEW VERIFIED
[2024-02-03] MEDS: hydrALAZINE HCl 20 MG/ML VIAL 10 MG IVPUSH (06:20)
--- NOTE | 2024-02-03 07:00 | CA_ITS ---
Transthoracic Echocardiogram Patient (Last, First, Middle): Pancho Mejia W Gender: Male Date of : 1940 Age: 83 Procedure Date: 02/03/2024 Procedure Type: Transthoracic Echocardiogram Location: ICU Height: 170.18 cm Weight: 75.3 kg BSA: 1.87 m2 Heart Rate: bpm BP: 121 / 28 mmHg Newspaper Correspondent: JAYLIN Referring MD: Kenisha Diaz MD Symptoms: Hypoxia post viral infection Study Quality: Adequate with contrast Conclusions: - Normal left ventricular size and systolic function. There is mildly increased left ventricular wall thickness. The visually estimated ejection fraction is between 60-65%. - Normal right ventricular cavity size and systolic function. - The left atrium is moderately dilated. - There is mild to moderate aortic valve stenosis. Findings Procedure Information Contrast agent, definity, is being given per protocol without apparent complications. Left Ventricle Normal left ventricular size and systolic function. There is mildly increased left ventricular wall thickness. The visually estimated ejection fraction is between 60-65%. There is no evidence of regional wall motion abnormalities. Abnormal diastolic function is noted. Spectral Doppler is indicative of an impaired relaxation filling pattern. E/E prime ratio is between 8 and 15 consistent with indeterminate filling pressures. Right Ventricle Normal right ventricular cavity size and systolic function. Atria The left atrium is moderately dilated. The right atrium is normal in size. Aortic Valve There is a normal trileaflet aortic valve. There is moderate calcification of the aortic valve. There is mild to moderate aortic valve stenosis. There is no aortic valve regurgitation. Mitral Valve There is moderate mitral annular calcification. There is no mitral valve regurgitation. There is no mitral valve stenosis. Pulmonic Valve The pulmonic valve is likely normal. Tricuspid Valve Normal tricuspid valve structure and function. Tricuspid regurgitation envelope is inadequate for calculation of right ventricular systolic pressure. Indeterminate right atrial pressure. Great Vessels All visible segments of the aorta are normal in size. Venous The inferior vena cava is normal in size and collapses greater than 50% with inspiration. Pericardium/Pleural There is no evidence of pericardial effusion. Measurements 2D Linear Measurements IVSd: 1.08 0.6-0.9/0.6-1.0 cm LVIDd: 4.67 3.9-5.3/4.2-5.9 cm LVIDd Index: 2.50 2.4-3.2/2.2-3.1 cm/m2 LVIDs: 2.52 2.0-3.6 cm LVPWd: 1.22 0.7-1.1 cm LA Diam: 3.20 2.7-3.8/3.0-4.0 cm LAIDs Index: 1.71 1.5-2.3 cm/m2 LV Mass: 246.23 67-162/88-224 g LV Mass Index: 131.67 43-95/49-115 g/m2 LVOT Diam: 2.00 3.0+(-)1.3 cm 2D Systolic Function EF 4C: 67.50 >55% EF 2C: 71.40 >55% EF BiP: 69.50 >55% Mitral Valve MV VTI: 0.18 MV Pk Nhan: 0.91 MV Mn Nhan: 0.61 MV Pk Grad: 3.00 MV Mn Grad: 2.00 MV Pk E: 0.62 MV PK A: 0.66 MV Decel Time: 280.00 E/A: 0.90 E'Lateral: 6.53 E'Medial: 3.81 E/E' Med: 16.20 E/E' Lat: 9.40 PHT: 82.00 MVA PHT: 2.68 MVA Continuity: 2.55 Decel [place]: 2.20 Aortic Valve AoV Pk Nhan: 2.89 AoV Mn Nhan: 1.83 AoV VTI: 0.36 AoV Pk Grad: 33.00 Aov Mn Grad: 17.00 JOI Cont.VTI: 1.27 LVOT LVOT Pk Nhan: 1.00 LVOT Mn Nhan: 0.69 LVOT VTI: 0.15 LVOT Pk Grad: 4.00 LVOT Mn Grad: 2.00 LVOT Diam: 2.00 LVOT Area: 3.14 Diastolic Function MV Pk E: 0.62 MV Pk A: 0.66 E/A: 0.90 E'Medial: 3.81 E/E' Med: 16.20 E' Laterial: 6.53 E/E' Lat: 9.40 Right Ventricle TAPSE (mm): 17.80 TVS' Nhan: 16.00 Tricuspid Valve TR Pk Nhan: 1.83 TR Pk Grad: 13.00 Great Vessels Aorta Sinus of Valsalva: 3.50 2.0-3.5 cm Ao Asc: 3.30 2.1-3.4 cm Pulmonary Valve PV Pk Nhan: 1.02 Peak PV Grad: 4.00 Updated in Other Vendor System with Status of Final Jesus Jenkins MD electronically signed on 02/03/2024 5:38:45 PM with status of Final
[2024-02-03] MEDS: Albuterol/Iprat 2.5/0.5MG 3 ML AMPUL.NEB INHALE ×4 (08:52→19:54)
[2024-02-03] MEDS: Dextrose 5 % 1,000 ML 50 ML IVCONT (09:00)
[2024-02-03 09:32] LABS: ABG Base Excess -0.4 mmol/L; ABG HCO3 21 mmol/L (22-26); ABG pCO2 27 mmHg (32-45); ABG pO2 69 mmHg (83-108)
--- NOTE | 2024-02-03 09:48 | P.PNCC_ITS ---
Subjective Subjective Date of Service: 02/03/24 Interval History: 83-year-old gentleman, remote smoker in his 20s and 30s, quit 40 years prior with underlying history of hypertension, CAD status post stenting admitted on 01/30/2024 with history of myalgias and worsening dyspnea for approximately 2 weeks. Patient was COVID positive on home test a day prior to admission. On ER evaluation he was significantly hypoxic requiring supplemental oxygen. Patient was started on empiric antibiotics and systemic glucocorticoids and admitted to telemetry. Hospital course is significant for progressive hypoxia, now requiring maximum support with high-flow nasal cannula. His CT angio chest demonstrated no pulmonary emboli, but some pulmonary edema and what appears to be bacterial superinfection of underlying viral pneumonia. Overnight 02/01/2024 patient with worsening hypoxia requiring initiation of BiPAP support and transferred to intensive care unit. No events overnight, on/off BiPAP. Critical Care Time (minutes): 60 Physical Exam 2 Vital Signs: Vital Signs: Last Vital Signs Temp 100.2 F 02/03/24 09:00 Pulse 91 02/03/24 09:00 Resp 25 H 02/03/24 09:00 BP 134/76 02/03/24 09:00 Pulse Ox 88 L 02/03/24 09:00 O2 Del Method High Flow Nasal C annula, Non-Rebrea ther Mask 02/03/24 09:00 O2 Flow Rate 100 02/03/24 09:00 FiO2 90 02/03/24 08:00 Oxygen Flow Rate 4 01/30/24 10:16 BMI result Body Mass Index 24.6 Const: General: no acute distress, alert and confusion O rientation/consciousness: confusion Eyes: Sclerae: sclerae normal EOM: EOMs intact bilaterally Neck: Neck: Yes no lymphadenopathy, Yes trachea midline and Yes supple Resp: Effort & Inspection: tachypneic Auscultation: crackles Cardio: Rate: regular rate Rhythm: regular rhythm Heart sounds: no gallops, no murmurs and no rubs GI: Palpation (GI): Soft to palpation and Other GI palpation findings present ( Nontender) Auscultation: normal bowel sounds Neuro: General: confusion Extrem: General: No clubbing, No cyanosis and Yes edema (trace bilateral) Objective Data Labs 02/03/24 04:29 02/03/24 04:29 Labs: Laboratory Results - last 24 hr 02/02/24 02/03/24 02/03/24 18:14 04:26 04:29 WBC 10.3 RBC 4.26 L Hgb 13.2 L Hct 38.1 L MCV 89.4 MCH 31.0 MCHC 34.6 RDW 12.9 Plt Count 155 L MPV 11.0 Immature Gran % (Auto) 1.0 H Neut % (Auto) 91.9 H Lymph % (Auto) 4.8 L [place] % (Auto) 2.2 Eos % (Auto) 0.0 Baso % (Auto) 0.1 Lymph # (Auto) 0.5 L [place] # (Auto) 0.2 Eos # (Auto) 0.0 Baso # (Auto) 0.0 Abs Immat Gran (auto) 0.10 H Absolute Neuts (auto) 9.4 H Absolute Nucleated RBC 0.000 Nucleated RBC % (auto) 0.0 Smear Tech's Comments VERIFIED O2 Saturation ABG pH at Pt Temp ABG pCO2 at Pt Temp ABG pO2 at Pt Temp ABG HCO3 ABG Base Excess (Actual) VBG pH 7.49 H VBG pCO2 27 VBG pO2 85 VBG HCO3 21 L VBG O2 Saturation 97.0 VBG Base Excess -0.6 Sodium 149 H Potassium 4.0 Chloride 113 H Carbon Dioxide 20 L Anion Gap 20 BUN 46 H Creatinine 1.74 H Estim Creat Clear Calc 30.6 Estimated GFR 38 Random Glucose 170 H Calcium 8.8 Phosphorus 3.5 Magnesium 2.5 Total Bilirubin 2.7 H AST 43 H ALT 74 H Alkaline Phosphatase 175 H Total Protein 6.3 L Albumin 3.5 Random Vancomycin 16.9 02/03/24 09:24 WBC RBC Hgb Hct MCV MCH MCHC RDW Plt Count MPV Immature Gran % (Auto) Neut % (Auto) Lymph % (Auto) [place] % (Auto) Eos % (Auto) Baso % (Auto) Lymph # (Auto) [place] # (Auto) Eos # (Auto) Baso # (Auto) Abs Immat Gran (auto) Absolute Neuts (auto) Absolute Nucleated RBC Nucleated RBC % (auto) Smear Tech's Comments O2 Saturation 93.0 ABG pH at Pt Temp 7.50 H ABG pCO2 at Pt Temp 27 L ABG pO2 at Pt Temp 69 L ABG HCO3 21 L ABG Base Excess (Actual) -0.4 VBG pH VBG pCO2 VBG pO2 VBG HCO3 VBG O2 Saturation VBG Base Excess Sodium Potassium Chloride Carbon Dioxide Anion Gap BUN Creatinine Estim Creat Clear Calc Estimated GFR Random Glucose Calcium Phosphorus Magnesium Total Bilirubin AST ALT Alkaline Phosphatase Total Protein Albumin Random Vancomycin Progress Note: A&P Assessment and plan (1) Acute respiratory failure with hypoxia: Status: Acute (2) COVID-19: Status: Acute (3) Pneumonia: Status: Acute (4) Congestive heart failure: Status: Acute Plan Assessment: 83-year-old gentleman admitted with acute hypoxic respiratory failure secondary to bacterial superinfection of underlying COVID pneumonia, further complicated by pulmonary edema, now requiring BiPAP support. Plan: Neuro: No acute issues. Cardiac: Acute congestive heart failure, improving with diuresis. 2D echocardiogram is pending. Pulmonary: Acute hypoxic respiratory failure secondary to bacterial superinfection of underlying COVID pneumonia, now on/off BiPAP support. Continue to titrate off as tolerated. Renal: No acute issues. Endo: No acute issues. GI: No acute issues. ID: Blood cultures are pending. Empirically covered with broad-spectrum antibiotics. Heme/Onc: No acute issues. Psych: No acute issues. Miscellaneous: No acute issues. Prophylaxis: Heparin Diet: NPO Critical care time spent: 60 minutes Quality Stroke Does the patient have a stroke diagnosis?: No VTE Prior VTE?: No VTE Risk Level:: Medical - moderate - high VTE Device Contraindication: Treatment Not Indicated VTE Drug Contraindication: N/A - Med Ordered
--- NOTE | 2024-02-03 12:42 | MHC.CM.PN ---
Pt continues care in ICU: on NRB / hi flow with increasing WOB: may require intubation: HCP on file. Original d/c plan for a return to Independent status at home: CM to follow for finalization of d/c planning needs.
[2024-02-03] MEDS: propofoL 200 MG/20 ML VIAL 100 MG IVPUSH (13:34)
[2024-02-03] MEDS: propofoL 1,000 MG/100 ML VIAL 12.82 MG IVCONT (13:36)
[2024-02-03] MEDS: Norepinephrine Bitartrate/D5W 8 MG/250 ML PLAST..BAG 6.68 MG IV (13:40)
--- NOTE | 2024-02-03 15:05 | HO.HCP ---
Health Care Proxy Invocation Health Care Proxy Declaration: Brooke Timothy Elizabeth , on the date cited below, have determined that, Pancho Mejia , lacks the capacity to make or communicate, informed health care decision. This determination is made in accordance with accepted standards of medical judgment and pursuant to [place] 201[place], the [facility] Care Proxy Law. The cause, nature, extent and probable duration of the patient's inapacity are described below: Cause: Encephalopathy Nature: Organic Extent: Severe Probable Duration of Patient's Incapacity: Unclear
--- NOTE | 2024-02-03 15:06 | P.PCNCC_ITS ---
Procedures Date of Service Date of Service: 02/03/24 Intubation Intubation Comments: After obtaining informed consent from healthcare proxy patient intubated for acute hypoxic respiratory failure with 7.5 cuffed ET tube under glide scope guidance with no immediate complications. Tube position verified on chest x- ray.
[2024-02-03] MEDS: Chlorhexidine Gluc Oral Rinse 15 ML MOUTHWASH BUCCAL ×2 (15:38→19:41)
--- NOTE | 2024-02-03 17:16 | PC.NURSE ---
13:10 MD notified of increasing temperatures and updated that pt remains on HFNC 55L 100% + Partial NRB. SaO2 88-90%. Pt responds to peripheral pain stimuli and opens eyes briefly to name, but remains lethargic. GCS 10. 13:15 MD contacted HCP for consent for intubation. This RN confirmed consent via phone from Lina Crooks) /HCP. Respiratory therapy called to bedside with MD and 2 RNs. 13:34 100 mg IVP once given for sedation per MD. 13:35 Patient intubated 7.5 25@ lip. 13:42 Levophed gtt started at 0.05 per protocol. Levophed gtt required frequent titrations for low MAP <65. MAP goal >65. 13:45 NG tube placed to right nare 13:50 CXR captured to confirm placement of ET and NG tube. Per MD, RT adjusted ET tube to 7.5 24 @ lip. Vent setting initially PC rate 16/ 15 / PEEP 5.0/ FiO2 100% Pt coughing frequently with vent dysynchrony. Vent settings adjusted to PSV 16/5.0 85%. Tolerating well. Levophed titrated per protocol to 0.09, pt more hemodynamically stable reaching MAP goal >65 Pt and son visited at bedside briefly with COVID respiratory precautions. High fall precautions in place, camera in room
[2024-02-03] MEDS: propofoL 1,000 MG/100 ML VIAL 17.09 MG IVCONT ×2 (17:53→23:17)
[2024-02-03 18:57] LABS: Vancomycin Random 16.1 mcg/mL (15-20)
--- NOTE | 2024-02-03 19:06 | HE.PHANOTE ---
RE: JESUSO Patients level came back this evening at 16.1. Patient had a spike in Scr, up to 1.74 from 1.11 yesterday. Will decrease dose to 750 mg Q24H and get a level after one dose to asses efficacy vs safety
[2024-02-03] MEDS: Acetaminophen 325 MG TABLET 650 MG PO (19:40)
[2024-02-03 21:12] LABS: VBG Base Excess -2.1 mmol/L; VBG HCO3 20 mmol/L (22-26); VBG pCO2 27 mmHg; VBG pH 7.46 (7.32-7.43); VBG pO2 58 mmHg
[2024-02-04] VITALS (38 sets, daily range): BP systolic 92–165; BP diastolic 51–99; PULSE 77–178; RESP 18–33; TEMP 31.4–38.6; O2SAT 88–94; BMI 27.8
[2024-02-04] MEDS: Enoxaparin Sodium 40 MG/0.4 ML SYRINGE SUBCUT (02:14)
[2024-02-04] MEDS: Piperacillin Sodium/Tazobactam 4.5 GM in 0.9 % Sodium Chloride 100 ML IV ×4 (02:15→21:02)
[2024-02-04 02:18] LABS: Anion Gap 18 (12-20); Blood Urea Nitrogen 51 mg/dL (9-16); Calcium 8.3 mg/dL (8.4-10.2); Carbon Dioxide 20 mmol/L (22-29); Chloride 117 mmol/L (96-108); Creatinine Clr Calc Pharmacy 21.8; Estimated Glomerular Filt Rate 26; Glucose Random 226 mg/dL (60-115); Magnesium 2.9 mg/dL (1.6-2.6); Phosphorus 2.5 mg/dL (2.7-4.5); Potassium 3.5 mmol/L (3.3-5.1); Sodium 151 mmol/L (135-145)
[2024-02-04] MEDS: Potassium Phosphate/NS 15 MMOL/250 ML PLAST..BAG 62.5 MMOL IV ×2 (02:30→20:44)
[2024-02-04] MEDS: Norepinephrine Bitartrate/D5W 8 MG/250 ML PLAST..BAG 12.02 MG IV ×2 (04:55→15:29)
[2024-02-04] MEDS: propofoL 1,000 MG/100 ML VIAL 17.09 MG IVCONT ×5 (04:56→21:45)
[2024-02-04 05:48] LABS: VBG Base Excess -3.5 mmol/L; VBG HCO3 18 mmol/L (22-26); VBG pCO2 24 mmHg; VBG pH 7.48 (7.32-7.43); VBG pO2 47 mmHg
[2024-02-04 06:09] LABS: Venous Blood Gas Refer to POC result
[2024-02-04 07:07] LABS: Venous Blood Gas Refer to POC result
[2024-02-04] MEDS: Chlorhexidine Gluc Oral Rinse 15 ML MOUTHWASH BUCCAL ×3 (07:42→20:45)
[2024-02-04] MEDS: Famotidine/PF 20 MG/2 ML VIAL IVPUSH (07:43)
[2024-02-04] MEDS: 0.9 % Sodium Chloride Flush 3 ML SYRINGE IVFLUSH ×2 (07:44→15:38)
[2024-02-04] MEDS: Albuterol/Iprat 2.5/0.5MG 3 ML AMPUL.NEB INHALE ×3 (08:04→15:41)
[2024-02-04] MEDS: Acetaminophen 325 MG TABLET 650 MG PO (08:44)
--- NOTE | 2024-02-04 09:34 | MHC.CLN ---
PT IS INTUBATED AND SEDATED PT REQUIRES TF FOR NUTRITION SUPPORT R/T PROLONGED NPO STATUS PT RECEIVING PROMOTE AT MAX GOAL RATE 60ML/HR WITH 300ML FREE WATER FLUSHES Q 4 HRS TO PROVIDE 1440KCALS (1891KCALS WITH SEDATION; 26KCALS/KG), 90G PROTEIN (1.25G/KG), 3008ML TOTAL WATER FROM FORMULA AND FLUSHES (42ML/KG) MONITOR TOLERANCE, RESIDUALS AND LYTES SEE ALSO FULL CLINICAL NUTRITION ASSESSMENT
--- NOTE | 2024-02-04 09:42 | P.PNCC_ITS ---
Subjective Subjective Date of Service: 02/04/24 Interval History: 83-year-old gentleman, remote smoker in his 20s and 30s, quit 40 years prior with underlying history of hypertension, CAD status post stenting admitted on 01/30/2024 with history of myalgias and worsening dyspnea for approximately 2 weeks. Patient was COVID positive on home test a day prior to admission. On ER evaluation he was significantly hypoxic requiring supplemental oxygen. Patient was started on empiric antibiotics and systemic glucocorticoids and admitted to telemetry. Hospital course is significant for progressive hypoxia, now requiring maximum support with high-flow nasal cannula. His CT angio chest demonstrated no pulmonary emboli, but some pulmonary edema and what appears to be bacterial superinfection of underlying viral pneumonia. Hospital course significant for progressive hypoxia requiring intubation on 02/03/2024 and acute kidney injury. No events overnight. Critical Care Time (minutes): 60 Physical Exam 2 Vital Signs: Vital Signs: Last Vital Signs Temp 101.3 F H 02/04/24 09:00 Pulse 77 02/04/24 09:00 Resp 31 H 02/04/24 09:00 BP 98/57 L 02/04/24 09:00 Pulse Ox 91 L 02/04/24 09:00 O2 Del Method Mechanical Ventil ation 02/04/24 09:00 O2 Flow Rate 55 02/03/24 13:00 FiO2 90 02/04/24 09:00 Oxygen Flow Rate 4 01/30/24 10:16 BMI result Body Mass Index 27.8 Const: General: no acute distress and other (Sedated on the vent) Eyes: Sclerae: sclerae normal EOM: EOMs intact bilaterally Neck: Neck: Yes no lymphadenopathy, Yes trachea midline and Yes supple Resp: Effort & Inspection: no respiratory distress Auscultation: crackles (Bilateral) Cardio: Rate: tachycardic Rhythm: regular rhythm Heart sounds: no gallops, no murmurs and no rubs GI: Palpation (GI): Soft to palpation and Other GI palpation findings present ( Nontender) Auscultation: normal bowel sounds Extrem: General: No clubbing, No cyanosis and Yes edema (Trace) Objective Data Labs 02/03/24 04:29 02/04/24 01:51 Labs: Laboratory Results - last 24 hr 02/03/24 02/03/24 02/04/24 18:17 21:05 01:51 VBG pH 7.46 H VBG pCO2 27 VBG pO2 58 VBG HCO3 20 L VBG O2 Saturation 86.0 VBG Base Excess -2.1 Sodium 151 H Potassium 3.5 Chloride 117 H Carbon Dioxide 20 L Anion Gap 18 BUN 51 H Creatinine 2.44 H Estim Creat Clear Calc 21.8 Estimated GFR 26 Random Glucose 226 H Calcium 8.3 L Phosphorus 2.5 L Magnesium 2.9 H Random Vancomycin 16.1 02/04/24 05:42 VBG pH 7.48 H VBG pCO2 24 VBG pO2 47 VBG HCO3 18 L VBG O2 Saturation 78.0 VBG Base Excess -3.5 Sodium Potassium Chloride Carbon Dioxide Anion Gap BUN Creatinine Estim Creat Clear Calc Estimated GFR Random Glucose Calcium Phosphorus Magnesium Random Vancomycin Progress Note: A&P Assessment and plan (1) ESTEBAN (acute kidney injury): Status: Acute (2) COVID-19: Status: Acute (3) Acute respiratory failure with hypoxia: Status: Acute (4) Congestive heart failure: Status: Acute (5) Pneumonia: Status: Acute Plan Assessment: 83-year-old gentleman admitted with acute hypoxic respiratory failure secondary to bacterial superinfection of underlying COVID pneumonia, further complicated by pulmonary edema, now requiring BiPAP support. Plan: Neuro: No acute issues. Cardiac: Acute congestive heart failure, improved with diuresis. 2D echocardiogram with underlying diastolic dysfunction. Pulmonary: Acute hypoxic respiratory failure secondary to bacterial superinfection of underlying COVID pneumonia, now requiring ventilatory support. Continue to titrate off as tolerated. Renal: Acute kidney injury, nonoliguric. Nephrology shows care appreciated. Endo: No acute issues. GI: No acute issues. ID: Blood cultures are pending. Empirically covered with broad-spectrum antibiotics. Heme/Onc: No acute issues. Psych: No acute issues. Miscellaneous: No acute issues. Prophylaxis: Heparin, famotidine Diet: NPO Critical care time spent: 60 minutes Quality Stroke Does the patient have a stroke diagnosis?: No VTE Prior VTE?: No VTE Risk Level:: Medical - moderate - high VTE Device Contraindication: Treatment Not Indicated VTE Drug Contraindication: N/A - Med Ordered
--- NOTE | 2024-02-04 10:10 | PM.CNNEP ---
History of Present Illness Reason for Consult Consult date: 02/04/24 Reason for consult: ESTEBAN Chief Complaint Chief complaint: COVID+, pneumonia, hypoxia History of Present Illness Narrative: 83-year-old gentleman with no known renal dysfunction but with underlying history of hypertension, CAD status post stenting admitted on 01/30/2024 with history of myalgias and worsening dyspnea for approximately 2 weeks. Patient was COVID positive on home test a day prior to admission. In ER evaluation he was significantly hypoxic requiring supplemental oxygen. Patient was started on empiric antibiotics and systemic glucocorticoids and admitted to telemetry. Hospital course is significant for progressive hypoxia. His CT angio chest demonstrated no pulmonary emboli, but some pulmonary edema and what appears to be bacterial superinfection of underlying viral pneumonia. Hospital course significant for progressive hypoxia requiring intubation on 02/03/2024 and acute kidney injury. Nephrology has been consulted to assist in his clinical care during his current hospital stay Review of Systems Review of Systems Yes unobtainable due to endotracheal tube PMFSH Past Medical History Medical History (Updated 02/04/24 @ 09:48 by Timothy Johnson MD) HLD (hyperlipidemia) HTN (hypertension) CAD (coronary artery disease) Social History Social History Household Members: Spouse Housing: House Do you presently have visiting nurse or other home services: No Comment: 1:1 Sitter ordered Patient Tobacco Use Status: Former Tobacco user Smoked in Last 30 Days: No Use of substances other than those prescribed or required for medical reasons: No Currently Displaying Signs/Symptoms of Drug Intoxication Withdrawal: No Have you been hit, kicked, punched, or otherwise hurt by someone within the past year? If so, by whom?: No Do you feel safe in your current relationship?: Yes Is there a partner from a previous relationship who is making you feel unsafe now?: No Are you made to feel afraid or neglected: No Advance Directives: No Advance Directives Information Provided: No Nutrition Risks: No Nutritional Risk service: No Meds Allergies Allergy/AdvReac Type Severity Reaction Status Date / Time atorvastatin Allergy Unknown Verified 01/30/24 10:15 cephalexin Allergy Unknown Verified 01/30/24 10:15 doxycycline Allergy Unknown Verified 01/30/24 10:15 neomycin Allergy Unknown Verified 01/30/24 10:15 Active Medications: Current Medications Acetaminophen (Acetaminophen 325 Mg Tablet) 650 mg PO Q6H PRN PRN Reason: Pain, Mild (Pain Scale 1-3) Last Admin: 02/04/24 08:44 Dose: 650 mg Albuterol/Ipratropium (Albuterol/Iprat 2.5/0.5mg 3 Ml Ampul.Neb) 3 ml INHALE RQ4H WHILE AWAKE [facility] Last Admin: 02/04/24 08:04 Dose: 3 ml Chlorhexidine Gluconate (Chlorhexidine Gluc Oral Rinse 15 Ml Mouthwash) 15 ml BUCCAL TID [facility] Last Admin: 02/04/24 07:42 Dose: 15 ml Enoxaparin Sodium (Enoxaparin Sodium 40 Mg/0.4 Ml Syringe) 40 mg SUBCUT Q24H [facility] Last Admin: 02/04/24 02:14 Dose: 40 mg Famotidine (Famotidine/Pf 20 Mg/2 Ml Vial) 20 mg IVPUSH DAILY [facility] Last Admin: 02/04/24 07:43 Dose: 20 mg Piperacillin Sod/Tazobactam (Sod 4.5 gm/ Sodium Chloride) 100 mls @ 200 mls/hr IV Q6H [facility] Last Infusion: 02/04/24 09:36 Dose: Infused Dexmedetomidine HCl (Precedex) 400 mcg in 100 mls @ 0 mls/hr IVCONT .Q0M [facility]; Protocol Last Titration: 02/03/24 08:45 Dose: 0 mcg/kg/hr, 0 mls/hr Propofol (Diprivan) 1,000 mg in 100 mls @ 0 mls/hr IVCONT .Q0M [facility]; Protocol Last Admin: 02/04/24 09:10 Dose: 40 mcg/kg/min, 17.09 mls/hr Norepinephrine Bitartrate (Levophed) 8 mg in 250 mls @ 0 mls/hr IV .Q0M [facility]; Protocol Last Admin: 02/04/24 04:55 Dose: 0.09 mcg/kg/min, 12.02 mls/hr Vancomycin HCl 750 mg/ Sodium (Chloride) 265 mls @ 265 mls/hr IV Q24H [facility] Isosorbide Mononitrate (Isosorbide Mononitrate 30 Mg Tab.Er.24h) 30 mg PO DAILY [facility]; Protocol Last Admin: 02/03/24 10:04 Dose: Not Given Methylprednisolone Sodium Succinate (Methylprednisolone Sod Succ 40 Mg/Ml Vial) 40 mg IVPUSH Q24H [facility] Pt Own (Tafluprost ( Pf) 0.0015 % Dropperette) 1 drop EYE-BOTH DAILY [facility] Last Admin: 02/03/24 10:00 Dose: 1 drop (Dorzolamide-Timolol (Pf) [Cosopt (Pf)] 2-0.5 % Dropperette) 1 drop EYE-BOTH BID [facility] Last Admin: 02/03/24 11:16 Dose: 1 drop Pharmacy Consult (Consult Rx Vancomycin Dosing) 1 each MISCELLANE DAILY PRN PRN Reason: Consult order Sodium Chloride (0.9 % Sodium Chloride Flush 3 Ml Syringe) 3 ml IVFLUSH QSHIFT [facility] Last Admin: 02/04/24 07:44 Dose: 3 ml Home Medications Medication Instructions Recorded Confirmed Last Taken Type aspirin 81 mg tablet,delayed 81 mg PO DAILY 01/30/24 01/30/24 Unknown History release dorzolamide-timolol (PF) 2 %-0.5 % 1 drp ophthalmic (eye) BID 01/30/24 01/30/24 Unknown History eye drops in a dropperette (Cosopt (PF)) isosorbide mononitrate 30 mg 30 mg PO DAILY 01/30/24 01/30/24 Unknown History tablet,extended release 24 hr lisinopril 10 mg tablet 10 mg PO DAILY 01/30/24 01/30/24 Unknown History metoprolol succinate 25 mg 25 mg PO DAILY 01/30/24 01/30/24 Unknown History tablet,extended release 24 hr multivitamin 1 tab PO DAILY 01/30/24 01/30/24 Unknown History rosuvastatin 10 mg tablet 10 mg PO BEDTIME 01/30/24 01/30/24 Unknown History tafluprost (PF) 0.0015 % eye drops 1 drp ophthalmic (eye) DAILY 01/30/24 01/30/24 Unknown History in a dropperette triamcinolone acetonide 0.1 % 1 appl topical BID-TID 01/30/24 01/30/24 Unknown History topical cream Physical Exam Vital Signs: Last Vital Signs Temp 101.3 F H 02/04/24 10:00 Pulse 78 02/04/24 10:00 Resp 31 H 02/04/24 10:00 BP 96/51 L 02/04/24 10:00 Pulse Ox 92 02/04/24 10:00 O2 Del Method Mechanical Ventilation 02/04/24 10:00 O2 Flow Rate 55 02/03/24 13:00 FiO2 90 02/04/24 10:00 Oxygen Flow Rate 4 01/30/24 10:16 BMI result Body Mass Index 27.8 Const General: no acute distress Neck Neck: Yes supple Resp Auscultation: diminished lung sounds Cardio Rate: regular rate GI Palpation (GI): Soft to palpation Neuro Other: Sedated Extrem General: Yes no pedal edema Results Lab Results 02/03/24 04:29 02/04/24 01:51 Lab results: Chemistry 02/02/24 02/02/24 02/03/24 00:00 06:04 04:29 Sodium 141 143 149 H Potassium 4.8 4.8 4.0 Carbon Dioxide 18 L 20 L 20 L BUN 24 H 28 H 46 H Creatinine 0.96 1.11 1.74 H Calcium 8.1 L 8.5 8.8 Phosphorus 4.2 3.5 02/04/24 01:51 Sodium 151 H Potassium 3.5 Carbon Dioxide 20 L BUN 51 H Creatinine 2.44 H Calcium 8.3 L Phosphorus 2.5 L Hematology 02/02/24 02/02/24 02/03/24 00:00 06:17 04:29 WBC 11.4 H 10.7 10.3 Hgb 12.6 L 13.5 L 13.2 L Plt Count 191 194 155 L Assessment and Plan (1) ESTEBAN (acute kidney injury): Status: Acute Plan ESTEBAN due to tubular injury Has COVID and has received contrast for CTA Urine output marginal No known renal dysfunction @ baseline Ordered C3/C4/Urine eosinophil C/W current supportive care for now No indication for renal replacement now Shall continue to closely follow up Procedures Date of Service Date of Service: 02/04/24
[2024-02-04] MEDS: methylPREDNISolone Sod Succ 40 MG/ML VIAL IVPUSH (10:42)
[2024-02-04 10:44] LABS: Basophils Percent Auto 0.1 % (0-2); Eosinophils Absolute Auto 0.2 X10*3/uL (0.0-0.4); Eosinophils Percent Auto 2.4 % (0-4); Hematocrit 38.8 % (42.0-52.0); Hemoglobin 13.1 g/dl (14.0-18.0); Imm Gran Pct Auto 1.2 % (0.0-0.4); Lymphocytes Absolute Auto 0.5 X10*3/uL (1.2-4.9); Lymphocytes Percent Auto 6.4 % (20-40); Mean Corpuscular HGB Conc 33.8 g/dl (31.0-36.0); Mean Corpuscular Volume 91.9 fL (80.0-98.0); Monocytes Absolute Auto 0.2 X10*3/uL (0.1-1.2); NRBC Pct Auto 0.5 /100WBC (0.0-0.2); Neutrophils Absolute Auto 7.4 x10*3/uL (2.0-8.3); Neutrophils Percent Auto 87.9 % (45-73); Platelet Count 138 X10*3/uL (160-400); Red Blood Count 4.22 X10*6/uL (4.60-5.80); Red Cell Distribution Width 13.4 % (11.0-16.0); White Blood Count 8.4 X10*3/uL (4.8-10.8)
[2024-02-04 10:46] LABS: Alanine Aminotransferase 62 U/L (0-40); Albumin Level 2.8 g/dL (3.5-5.0); Alkaline Phosphatase 140 U/L (39-117); Anion Gap 17 (12-20); Aspartate Amino Transferase 55 U/L (5-37); Bilirubin Total 2.9 mg/dL (0.0-1.0); Blood Urea Nitrogen 53 mg/dL (9-16); Calcium 8.1 mg/dL (8.4-10.2); Carbon Dioxide 20 mmol/L (22-29); Chloride 119 mmol/L (96-108); Creatinine Clr Calc Pharmacy 23.1; Estimated Glomerular Filt Rate 25; Glucose Random 190 mg/dL (60-115); Magnesium 2.9 mg/dL (1.6-2.6); Phosphorus 2.8 mg/dL (2.7-4.5); Potassium 3.8 mmol/L (3.3-5.1); Sodium 152 mmol/L (135-145); Total Protein 5.9 g/dL (6.5-8.0)
[2024-02-04 10:51] LABS: MANUAL DIFF FLAG NO
[2024-02-04 14:12] LABS: EOS Counted 0 CELLS; EOS QC POS YES; EOS Stain Quality OK YES; WBC, Counted 0 CELLS
[2024-02-04 18:26] LABS: Vancomycin Random 9.9 mcg/mL (15-20)
--- NOTE | 2024-02-04 19:27 | ECG_ITS ---
Test Reason : SVT Blood Pressure : / mmHG Vent. Rate : 192 BPM Atrial Rate : 000 BPM P-R Int : 000 ms QRS Dur : 090 ms QT Int : 230 ms P-R-T Axes : 000 -25 160 degrees QTc Int : 411 ms Atrial fibrillation with rapid ventricular response Moderate voltage criteria for LVH, may be normal variant ( R in aVL , [place] product ) Marked ST abnormality, possible anterolateral subendocardial injury Abnormal ECG When compared to the previous EKG of Afib present ST depressions present Referred By: Tho Vick Electronically Signed By:Jesus Jenkins
[2024-02-04] MEDS: Metoprolol Tartrate 5 MG/5 ML VIAL IVPUSH (19:28)
[2024-02-04] MEDS: vancomycin HCL 750 MG in 0.9 % Sodium Chloride 250 ML 265 MG IV (19:30)
[2024-02-04 19:48] LABS: VBG Base Excess -5.2 mmol/L; VBG HCO3 18 mmol/L (22-26); VBG pCO2 28 mmHg; VBG pH 7.41 (7.32-7.43); VBG pO2 63 mmHg
[2024-02-04 19:51] LABS: Basophils Percent Auto 0.1 % (0-2); Eosinophils Percent Auto 0.1 % (0-4); Hematocrit 39.8 % (42.0-52.0); Hemoglobin 13.3 g/dl (14.0-18.0); Imm Gran Pct Auto 1.1 % (0.0-0.4); Lymphocytes Absolute Auto 0.3 X10*3/uL (1.2-4.9); Lymphocytes Percent Auto 3.1 % (20-40); MANUAL DIFF FLAG SCAN; Mean Corpuscular HGB Conc 33.4 g/dl (31.0-36.0); Mean Corpuscular Hemoglobin 31.1 pg (27.0-33.0); Mean Platelet Volume 11.6 fL (9.4-12.4); Monocytes Absolute Auto 0.1 X10*3/uL (0.1-1.2); Monocytes Percent Auto 1.2 % (2-11); Neutrophils Absolute Auto 8.5 x10*3/uL (2.0-8.3); Neutrophils Percent Auto 94.4 % (45-73); Platelet Count 148 X10*3/uL (160-400); Red Blood Count 4.28 X10*6/uL (4.60-5.80); Red Cell Distribution Width 13.5 % (11.0-16.0); SCAN SMEAR FLAG 1
[2024-02-04] MEDS: dilTIAZem HCL 125 MG in 0.9 % Sodium Chloride 100 ML 10 MG IVCONT (20:00)
[2024-02-04 20:04] LABS: Anion Gap 15 (12-20); Blood Urea Nitrogen 60 mg/dL (9-16); Calcium 8.5 mg/dL (8.4-10.2); Carbon Dioxide 19 mmol/L (22-29); Chloride 117 mmol/L (96-108); Creatinine Clr Calc Pharmacy 21.8; Estimated Glomerular Filt Rate 23; Glucose Random 320 mg/dL (60-115); Phosphorus 2.6 mg/dL (2.7-4.5); Potassium 4.2 mmol/L (3.3-5.1); Sodium 147 mmol/L (135-145)
[2024-02-04 20:13] LABS: SLIDE REVIEW VERIFIED
--- NOTE | 2024-02-04 20:30 | PM.EVENT ---
Documented by User: Tho Vick NP 02/04/24 20:50 Event Note Date of Service: 02/04/24 Event Note: Patient with new onset atrial fibrillation, confirmed by EKG. Chemistries obtained. IVPush lopressor and cardizem drip initiated. Troponin now elevated to 7440, no ST elevation on ekg. Will start heparin drip and asa. Formal Cardiology consult and echo the morning Time Spent With Patient Time: Total time managing care of this patient today ____ minutes. Documented by User: Timothy Johnson MD 02/05/24 09:33 Event Note Date of Service: 02/05/24
[2024-02-04] MEDS: Albumin Human 25 % 100 ML IV (20:44)
[2024-02-04] MEDS: Aspirin 325 MG TABLET PO (21:01)
[2024-02-04] MEDS: Digoxin 0.5 MG/2 ML AMPUL 0.25 MG IVPUSH (21:16)
[2024-02-04] MEDS: Heparin Sodium,Porcine/1/2NS 25,000 UNIT/250 ML IV.SOLN 11.26 UNIT IVCONT (21:35)
[2024-02-04 21:42] LABS: Hematocrit 41.7 % (42.0-52.0); Hemoglobin 13.9 g/dl (14.0-18.0); Mean Corpuscular HGB Conc 33.3 g/dl (31.0-36.0); Mean Corpuscular Hemoglobin 31.2 pg (27.0-33.0); Mean Corpuscular Volume 93.5 fL (80.0-98.0); NRBC Pct Auto 0.2 /100WBC (0.0-0.2); Platelet Count 132 X10*3/uL (160-400); Red Blood Count 4.46 X10*6/uL (4.60-5.80); Red Cell Distribution Width 13.6 % (11.0-16.0); White Blood Count 9.4 X10*3/uL (4.8-10.8)
[2024-02-04 22:41] LABS: INTERNATIONAL NORM RATIO 1.3 (0.9-1.1); Prothrombin Time 16.3 SEC (11.1-13.3)
[2024-02-04 22:44] LABS: PTT Heparin Drip 36.6 SEC (53-77.9)
[2024-02-05] VITALS (38 sets, daily range): BP systolic 120–197; BP diastolic 29–73; PULSE 71–93; RESP 16–32; TEMP 34.9–37.7; O2SAT 87–95; BMI 27.8
[2024-02-05 00:38] LABS: Venous Blood Gas Refer to POC result
[2024-02-05] MEDS: Albumin Human 25 % 100 ML IV ×3 (02:30→14:34)
[2024-02-05] MEDS: Digoxin 0.5 MG/2 ML AMPUL 0.125 MG IVPUSH ×2 (03:00→07:31)
[2024-02-05] MEDS: Piperacillin Sodium/Tazobactam 4.5 GM in 0.9 % Sodium Chloride 100 ML IV ×4 (03:00→19:40)
[2024-02-05] MEDS: propofoL 1,000 MG/100 ML VIAL 12.82 MG IVCONT ×4 (03:45→22:11)
[2024-02-05 05:45] LABS: VBG Base Excess -1.2 mmol/L; VBG HCO3 22 mmol/L (22-26); VBG pCO2 35 mmHg; VBG pH 7.41 (7.32-7.43); VBG pO2 103 mmHg
[2024-02-05 05:46] LABS: PTT Heparin Drip 76.6 SEC (53-77.9)
[2024-02-05 05:51] LABS: Basophils Percent Auto 0.1 % (0-2); Hematocrit 31.4 % (42.0-52.0); Hemoglobin 10.2 g/dl (14.0-18.0); Imm Gran Abs Auto 0.13 X10*3/uL (0.00-0.03); Imm Gran Pct Auto 1.5 % (0.0-0.4); Lymphocytes Absolute Auto 0.4 X10*3/uL (1.2-4.9); Lymphocytes Percent Auto 4.2 % (20-40); MANUAL DIFF FLAG SCAN; Mean Corpuscular HGB Conc 32.5 g/dl (31.0-36.0); Mean Corpuscular Hemoglobin 31.1 pg (27.0-33.0); Mean Corpuscular Volume 95.7 fL (80.0-98.0); Mean Platelet Volume 12.3 fL (9.4-12.4); Monocytes Absolute Auto 0.2 X10*3/uL (0.1-1.2); Monocytes Percent Auto 2.7 % (2-11); NRBC Pct Auto 0.2 /100WBC (0.0-0.2); Neutrophils Absolute Auto 7.7 x10*3/uL (2.0-8.3); Neutrophils Percent Auto 91.5 % (45-73); Platelet Count 115 X10*3/uL (160-400); Red Blood Count 3.28 X10*6/uL (4.60-5.80); Red Cell Distribution Width 13.4 % (11.0-16.0); SCAN SMEAR FLAG 1; White Blood Count 8.4 X10*3/uL (4.8-10.8)
[2024-02-05 05:52] LABS: Alanine Aminotransferase 61 U/L (0-40); Albumin Level 3.3 g/dL (3.5-5.0); Alkaline Phosphatase 128 U/L (39-117); Anion Gap 17 (12-20); Aspartate Amino Transferase 61 U/L (5-37); Bilirubin Total 1.7 mg/dL (0.0-1.0); Blood Urea Nitrogen 66 mg/dL (9-16); Calcium 8.3 mg/dL (8.4-10.2); Carbon Dioxide 22 mmol/L (22-29); Chloride 114 mmol/L (96-108); Estimated Glomerular Filt Rate 21; Glucose Random 164 mg/dL (60-115); Phosphorus 3.7 mg/dL (2.7-4.5); Potassium 4.6 mmol/L (3.3-5.1); Sodium 148 mmol/L (135-145); Total Protein 5.9 g/dL (6.5-8.0)
[2024-02-05 06:03] LABS: B Type Natriuretic Peptide 292 pg/mL (<100)
[2024-02-05 06:06] LABS: INTERNATIONAL NORM RATIO 1.3 (0.9-1.1); Prothrombin Time 15.8 SEC (11.1-13.3)
[2024-02-05 06:59] LABS: Venous Blood Gas Refer to POC result
--- NOTE | 2024-02-05 07:00 | CA_ITS ---
Transthoracic Echocardiogram Patient (Last, First, Middle): Pancho Mejia W Gender: Male Date of : 1940 Age: 83 Procedure Date: 02/05/2024 Procedure Type: Transthoracic Echocardiogram Location: ICU Height: 170. cm Weight: 80.29 kg BSA: 1.92 m2 Heart Rate: 87 bpm BP: 158 / 48 mmHg Sealer Sander: JAYLIN Referring MD: Tho Vick NP Symptoms: NSTEMI Study Quality: Fair w/Contrast. Limited per order Conclusions: - Normal left ventricular size and systolic function. There is mildly increased left ventricular wall thickness. The visually estimated ejection fraction is between 60-65%. There is no evidence of regional wall motion abnormalities. Diastolic function is indeterminate on the basis of available data. - Normal right ventricular cavity size and systolic function. Findings Procedure Information Contrast agent, definity, is being given per protocol without apparent complications. Left Ventricle Normal left ventricular size and systolic function. There is mildly increased left ventricular wall thickness. The visually estimated ejection fraction is between 60-65%. There is no evidence of regional wall motion abnormalities. Diastolic function is indeterminate on the basis of available data. Right Ventricle Normal right ventricular cavity size and systolic function. Mitral Valve There is severe mitral annular calcification. Venous The inferior vena cava is normal in size and collapses greater than 50% with inspiration. Pericardium/Pleural There is no evidence of pericardial effusion. Prior Study Comparison No significant change compared to prior study dated: 02/03/2024. Measurements 2D Linear Measurements IVSd: 1.33 0.6-0.9/0.6-1.0 cm LVIDd: 4.61 3.9-5.3/4.2-5.9 cm LVIDd Index: 2.40 2.4-3.2/2.2-3.1 cm/m2 LVIDs: 2.40 2.0-3.6 cm LVPWd: 1.18 0.7-1.1 cm LV Mass: 273.49 67-162/88-224 g LV Mass Index: 142.44 43-95/49-115 g/m2 LVOT Diam: 2.00 3.0+(-)1.3 cm 2D Systolic Function EF 4C: 67.50 >55% EF 2C: 73.60 >55% EF BiP: 71.00 >55% LVOT LVOT Pk Nhan: 1.29 LVOT Mn Nhan: 0.86 LVOT VTI: 0.26 LVOT Pk Grad: 7.00 LVOT Mn Grad: 4.00 LVOT Diam: 2.00 LVOT Area: 3.14 Updated in Other Vendor System with Status of Final Jesus Jenkins MD electronically signed on 02/05/2024 3:45:10 PM with status of Final
--- NOTE | 2024-02-05 07:05 | PC.NURSE ---
At approx 1930- pt converted to SVT 180s on tele. ACADEMIC ADMINISTRATOR Nava notified. EKG ordered and obtained. Given lopressor 5 mg IVP x1 with no effect. Cardizem gtt started and titrated per JAN. Digoxin 0.25 mg IVP x1 given some effect, HR down to 150s. Pt converted back to NSR at approx 2330, HR 70-90s. ACADEMIC ADMINISTRATOR aware of critical troponin- given ASA 325 mg PO x1 and heparin gtt started per JAN. FiO2 titrated up to 100%, SpO2 88-92%. Unable to reposition pt q2hr d/t desaturating to 84%. ACADEMIC ADMINISTRATOR aware.
[2024-02-05 07:16] LABS: SLIDE REVIEW VERIFIED
[2024-02-05] MEDS: Chlorhexidine Gluc Oral Rinse 15 ML MOUTHWASH BUCCAL ×3 (07:30→19:39)
[2024-02-05] MEDS: Famotidine/PF 20 MG/2 ML VIAL IVPUSH (07:31)
[2024-02-05] MEDS: Albuterol/Iprat 2.5/0.5MG 3 ML AMPUL.NEB INHALE ×4 (07:36→19:31)
--- NOTE | 2024-02-05 09:33 | P.PNCC_ITS ---
Subjective Subjective Date of Service: 02/05/24 Interval History: 83-year-old gentleman, remote smoker in his 20s and 30s, quit 40 years prior with underlying history of hypertension, CAD status post stenting admitted on 01/30/2024 with history of myalgias and worsening dyspnea for approximately 2 weeks. Patient was COVID positive on home test a day prior to admission. On ER evaluation he was significantly hypoxic requiring supplemental oxygen. Patient was started on empiric antibiotics and systemic glucocorticoids and admitted to telemetry. Hospital course is significant for progressive hypoxia, now requiring maximum support with high-flow nasal cannula. His CT angio chest demonstrated no pulmonary emboli, but some pulmonary edema and what appears to be bacterial superinfection of underlying viral pneumonia. Hospital course significant for progressive hypoxia requiring intubation on 02/03/2024 and acute kidney injury. Overnight with AFib with RVR up to 170s requiring amiodarone/digoxin, also elevated troponins, no overt ST changes, likely NSTEMI or demand ischemia. Critical Care Time (minutes): 60 Physical Exam 2 Vital Signs: Vital Signs: Last Vital Signs Temp 99.5 F 02/05/24 09:00 Pulse 79 02/05/24 09:00 Resp 24 H 02/05/24 09:00 BP 160/61 H 02/05/24 09:00 Pulse Ox 88 L 02/05/24 09:00 O2 Del Method Mechanical Ventil ation 02/05/24 09:00 O2 Flow Rate 100 02/05/24 09:00 FiO2 100 02/05/24 08:00 Oxygen Flow Rate 4 01/30/24 10:16 BMI result Body Mass Index 27.8 Const: General: no acute distress and other (Sedated on the vent) Eyes: Sclerae: sclerae normal EOM: EOMs intact bilaterally Neck: Neck: Yes no lymphadenopathy, Yes trachea midline and Yes supple Resp: Auscultation: crackles (Bilateral) Cardio: Rate: regular rate Rhythm: regular rhythm Heart sounds: no gallops, no murmurs and no rubs GI: Palpation (GI): Soft to palpation and Other GI palpation findings present ( Nontender) Auscultation: normal bowel sounds Extrem: General: Yes no pedal edema, No clubbing and No cyanosis Objective Data Labs 02/05/24 05:09 02/05/24 05:09 Labs: Laboratory Results - last 24 hr 02/04/24 02/04/24 02/04/24 10:07 11:56 17:59 WBC 8.4 RBC 4.22 L Hgb 13.1 L Hct 38.8 L MCV 91.9 MCH 31.0 MCHC 33.8 RDW 13.4 Plt Count 138 L MPV 12.0 Immature Gran % (Auto) 1.2 H Neut % (Auto) 87.9 H Lymph % (Auto) 6.4 L [place] % (Auto) 2.0 Eos % (Auto) 2.4 Baso % (Auto) 0.1 Lymph # (Auto) 0.5 L [place] # (Auto) 0.2 Eos # (Auto) 0.2 Baso # (Auto) 0.0 Abs Immat Gran (auto) 0.10 H Absolute Neuts (auto) 7.4 Absolute Nucleated RBC 0.040 H Nucleated RBC % (auto) 0.5 H Smear Tech's Comments PT INR aPTT Heparin Protocol VBG pH VBG pCO2 VBG pO2 VBG HCO3 VBG O2 Saturation VBG Base Excess Sodium 152 H Potassium 3.8 Chloride 119 H Carbon Dioxide 20 L Anion Gap 17 BUN 53 H Creatinine 2.50 H Estim Creat Clear Calc 23.1 Estimated GFR 25 Random Glucose 190 H Calcium 8.1 L Phosphorus 2.8 Magnesium 2.9 H Total Bilirubin 2.9 H AST 55 H ALT 62 H Alkaline Phosphatase 140 H Troponin I High Sens B-Natriuretic Peptide Total Protein 5.9 L Albumin 2.8 L Urine Eosinophils % 0.0 Random Vancomycin 9.9 L 02/04/24 02/04/24 02/04/24 19:39 19:41 21:11 WBC 9.0 9.4 RBC 4.28 L 4.46 L Hgb 13.3 L 13.9 L Hct 39.8 L 41.7 L MCV 93.0 93.5 MCH 31.1 31.2 MCHC 33.4 33.3 RDW 13.5 13.6 Plt Count 148 L 132 L MPV 11.6 12.0 Immature Gran % (Auto) 1.1 H Neut % (Auto) 94.4 H Lymph % (Auto) 3.1 L [place] % (Auto) 1.2 L Eos % (Auto) 0.1 Baso % (Auto) 0.1 Lymph # (Auto) 0.3 L [place] # (Auto) 0.1 Eos # (Auto) 0.0 Baso # (Auto) 0.0 Abs Immat Gran (auto) 0.10 H Absolute Neuts (auto) 8.5 H Absolute Nucleated RBC 0.000 0.020 H Nucleated RBC % (auto) 0.0 0.2 Smear Tech's Comments VERIFIED PT INR aPTT Heparin Protocol VBG pH 7.41 VBG pCO2 28 VBG pO2 63 VBG HCO3 18 L VBG O2 Saturation 90.0 VBG Base Excess -5.2 Sodium 147 H Potassium 4.2 Chloride 117 H Carbon Dioxide 19 L Anion Gap 15 BUN 60 H Creatinine 2.65 H Estim Creat Clear Calc 21.8 Estimated GFR 23 Random Glucose 320 H Calcium 8.5 Phosphorus 2.6 L Magnesium 3.0 H Total Bilirubin AST ALT Alkaline Phosphatase Troponin I High Sens 7440.6 H* D B-Natriuretic Peptide Total Protein Albumin 3.0 L Urine Eosinophils % Random Vancomycin 02/04/24 02/05/24 02/05/24 22:30 03:45 05:09 WBC 8.4 RBC 3.28 L D Hgb 10.2 L D Hct 31.4 L D MCV 95.7 MCH 31.1 MCHC 32.5 RDW 13.4 Plt Count 115 L MPV 12.3 Immature Gran % (Auto) 1.5 H Neut % (Auto) 91.5 H Lymph % (Auto) 4.2 L [place] % (Auto) 2.7 Eos % (Auto) 0.0 Baso % (Auto) 0.1 Lymph # (Auto) 0.4 L [place] # (Auto) 0.2 Eos # (Auto) 0.0 Baso # (Auto) 0.0 Abs Immat Gran (auto) 0.13 H Absolute Neuts (auto) 7.7 Absolute Nucleated RBC 0.020 H Nucleated RBC % (auto) 0.2 Smear Tech's Comments VERIFIED PT 16.3 H 15.8 H INR 1.3 H 1.3 H aPTT Heparin Protocol 36.6 L 76.6 D VBG pH VBG pCO2 VBG pO2 VBG HCO3 VBG O2 Saturation VBG Base Excess Sodium 148 H Potassium 4.6 Chloride 114 H Carbon Dioxide 22 Anion Gap 17 BUN 66 H Creatinine 2.89 H Estim Creat Clear Calc 20.0 Estimated GFR 21 Random Glucose 164 H Calcium 8.3 L Phosphorus 3.7 Magnesium 3.0 H Total Bilirubin 1.7 H AST 61 H ALT 61 H Alkaline Phosphatase 128 H Troponin I High Sens 5786.7 H* B-Natriuretic Peptide 292 H Total Protein 5.9 L Albumin 3.3 L Urine Eosinophils % Random Vancomycin 02/05/24 05:14 WBC RBC Hgb Hct MCV MCH MCHC RDW Plt Count MPV Immature Gran % (Auto) Neut % (Auto) Lymph % (Auto) [place] % (Auto) Eos % (Auto) Baso % (Auto) Lymph # (Auto) [place] # (Auto) Eos # (Auto) Baso # (Auto) Abs Immat Gran (auto) Absolute Neuts (auto) Absolute Nucleated RBC Nucleated RBC % (auto) Smear Tech's Comments PT INR aPTT Heparin Protocol VBG pH 7.41 VBG pCO2 35 VBG pO2 103 VBG HCO3 22 VBG O2 Saturation 99.0 VBG Base Excess -1.2 Sodium Potassium Chloride Carbon Dioxide Anion Gap BUN Creatinine Estim Creat Clear Calc Estimated GFR Random Glucose Calcium Phosphorus Magnesium Total Bilirubin AST ALT Alkaline Phosphatase Troponin I High Sens B-Natriuretic Peptide Total Protein Albumin Urine Eosinophils % Random Vancomycin Microbiology Microbiology Results: Microbiology 02/04/24 11:40 Sputum - Suctioned Gram Stain - Final 02/04/24 11:40 Sputum - Suctioned Sputum Culture - Preliminary No growth to date. Progress Note: A&P Assessment and plan (1) ESTEBAN (acute kidney injury): Status: Acute (2) Acute respiratory failure with hypoxia: Status: Acute (3) COVID-19: Status: Acute (4) ARDS (adult respiratory distress syndrome): Status: Acute (5) NSTEMI (non-ST elevated myocardial infarction): Status: Acute (6) Atrial fibrillation with RVR: Status: Acute Plan Assessment: 83-year-old gentleman admitted with acute hypoxic respiratory failure secondary to bacterial superinfection of underlying COVID pneumonia, further complicated by pulmonary edema, now requiring BiPAP support. Plan: Neuro: No acute issues. Cardiac: Acute congestive heart failure, improved with diuresis. 2D echocardiogram with underlying diastolic dysfunction. Also with NSTEMI and AFib with RVR. Continue heparin drip. Pulmonary: Acute hypoxic respiratory failure secondary to bacterial superinfection of underlying COVID pneumonia, now requiring ventilatory support. Continue to titrate off as tolerated. Renal: Acute kidney injury, nonoliguric. Nephrology shows care appreciated. Endo: No acute issues. GI: No acute issues. ID: Blood cultures are pending. Empirically covered with broad-spectrum antibiotics. Heme/Onc: No acute issues. Psych: No acute issues. Miscellaneous: No acute issues. Prophylaxis: Heparin, famotidine Diet: Tube feeds Critical care time spent: 60 minutes Quality Stroke Does the patient have a stroke diagnosis?: No VTE Prior VTE?: No VTE Risk Level:: Medical - moderate - high VTE Device Contraindication: Treatment Not Indicated VTE Drug Contraindication: N/A - Med Ordered
[2024-02-05 09:49] LABS: Hematocrit 29.1 % (42.0-52.0); Hemoglobin 9.8 g/dl (14.0-18.0); Mean Corpuscular HGB Conc 33.7 g/dl (31.0-36.0); Mean Corpuscular Hemoglobin 31.6 pg (27.0-33.0); Mean Corpuscular Volume 93.9 fL (80.0-98.0); Mean Platelet Volume 12.3 fL (9.4-12.4); NRBC Pct Auto 0.4 /100WBC (0.0-0.2); Platelet Count 106 X10*3/uL (160-400); Red Cell Distribution Width 13.5 % (11.0-16.0); White Blood Count 8.5 X10*3/uL (4.8-10.8)
--- NOTE | 2024-02-05 09:52 | MHC.CLN ---
F/U PT REMAINS INTUBATED AND SEDATED REVIEWED LABS-SERUM NA IMPROVED BUT REMAINS ELEVATED DISCUSSED AT ROUNDS WITH PT RECEIVING PROMOTE AT MAX GOAL RATE 60ML/HR WITH 300ML FREE WATER FLUSHES Q 4 HRS TO PROVIDE 1440KCALS (1778KCALS WITH SEDATION; 25KCALS/KG), 90G PROTEIN (1.25G/KG), 3008ML TOTAL WATER FROM FORMULA AND FLUSHES (42ML/KG) MONITOR TOLERANCE, RESIDUALS AND LYTES CONTINUE CURRENT CARE PLAN
[2024-02-05] MEDS: Metoprolol Tartrate 25 MG TABLET PO ×3 (10:08→19:39)
--- NOTE | 2024-02-05 10:37 | P.PNNP_ITS ---
Subjective Subjective Date of Service: 02/17/24 Interval history: Events noted. Remains intubated. Nonoliguric creatinine is bumped up Physical Exam 2 Vital Signs: Vital Signs: Last Vital Signs Temp 99.5 F 02/05/24 10:00 Pulse 78 02/05/24 10:00 Resp 23 H 02/05/24 10:00 BP 155/59 H 02/05/24 10:00 Pulse Ox 90 L 02/05/24 10:00 O2 Del Method Mechanical Ventil ation 02/05/24 10:00 O2 Flow Rate 100 02/05/24 09:00 FiO2 100 02/05/24 10:00 Oxygen Flow Rate 4 01/30/24 10:16 BMI result Body Mass Index 27.8 Const: General: ill appearing Neck: Neck: Yes supple Resp: Auscultation: clear to auscultation bilaterally Cardio: Palpation: no palpable S3 Heart sounds: no rubs GI: Palpation (GI): Soft to palpation Auscultation: normal bowel sounds Neuro: Motor exam (neuro): no asterixis Objective Data Labs 02/08/24 03:13 02/08/24 03:13 Labs: Laboratory Results - last 24 hr 02/04/24 02/04/24 02/04/24 10:07 11:56 17:59 WBC 8.4 RBC 4.22 L Hgb 13.1 L Hct 38.8 L MCV 91.9 MCH 31.0 MCHC 33.8 RDW 13.4 Plt Count 138 L MPV 12.0 Immature Gran % (Auto) 1.2 H Neut % (Auto) 87.9 H Lymph % (Auto) 6.4 L [place] % (Auto) 2.0 Eos % (Auto) 2.4 Baso % (Auto) 0.1 Lymph # (Auto) 0.5 L [place] # (Auto) 0.2 Eos # (Auto) 0.2 Baso # (Auto) 0.0 Abs Immat Gran (auto) 0.10 H Absolute Neuts (auto) 7.4 Absolute Nucleated RBC 0.040 H Nucleated RBC % (auto) 0.5 H Smear Tech's Comments PT INR aPTT Heparin Protocol VBG pH VBG pCO2 VBG pO2 VBG HCO3 VBG O2 Saturation VBG Base Excess Sodium 152 H Potassium 3.8 Chloride 119 H Carbon Dioxide 20 L Anion Gap 17 BUN 53 H Creatinine 2.50 H Estim Creat Clear Calc 23.1 Estimated GFR 25 Random Glucose 190 H Calcium 8.1 L Phosphorus 2.8 Magnesium 2.9 H Total Bilirubin 2.9 H AST 55 H ALT 62 H Alkaline Phosphatase 140 H Troponin I High Sens B-Natriuretic Peptide Total Protein 5.9 L Albumin 2.8 L Urine Eosinophils % 0.0 Random Vancomycin 9.9 L 02/04/24 02/04/24 02/04/24 19:39 19:41 21:11 WBC 9.0 9.4 RBC 4.28 L 4.46 L Hgb 13.3 L 13.9 L Hct 39.8 L 41.7 L MCV 93.0 93.5 MCH 31.1 31.2 MCHC 33.4 33.3 RDW 13.5 13.6 Plt Count 148 L 132 L MPV 11.6 12.0 Immature Gran % (Auto) 1.1 H Neut % (Auto) 94.4 H Lymph % (Auto) 3.1 L [place] % (Auto) 1.2 L Eos % (Auto) 0.1 Baso % (Auto) 0.1 Lymph # (Auto) 0.3 L [place] # (Auto) 0.1 Eos # (Auto) 0.0 Baso # (Auto) 0.0 Abs Immat Gran (auto) 0.10 H Absolute Neuts (auto) 8.5 H Absolute Nucleated RBC 0.000 0.020 H Nucleated RBC % (auto) 0.0 0.2 Smear Tech's Comments VERIFIED PT INR aPTT Heparin Protocol VBG pH 7.41 VBG pCO2 28 VBG pO2 63 VBG HCO3 18 L VBG O2 Saturation 90.0 VBG Base Excess -5.2 Sodium 147 H Potassium 4.2 Chloride 117 H Carbon Dioxide 19 L Anion Gap 15 BUN 60 H Creatinine 2.65 H Estim Creat Clear Calc 21.8 Estimated GFR 23 Random Glucose 320 H Calcium 8.5 Phosphorus 2.6 L Magnesium 3.0 H Total Bilirubin AST ALT Alkaline Phosphatase Troponin I High Sens 7440.6 H* D B-Natriuretic Peptide Total Protein Albumin 3.0 L Urine Eosinophils % Random Vancomycin 02/04/24 02/05/24 02/05/24 22:30 03:45 05:09 WBC 8.4 RBC 3.28 L D Hgb 10.2 L D Hct 31.4 L D MCV 95.7 MCH 31.1 MCHC 32.5 RDW 13.4 Plt Count 115 L MPV 12.3 Immature Gran % (Auto) 1.5 H Neut % (Auto) 91.5 H Lymph % (Auto) 4.2 L [place] % (Auto) 2.7 Eos % (Auto) 0.0 Baso % (Auto) 0.1 Lymph # (Auto) 0.4 L [place] # (Auto) 0.2 Eos # (Auto) 0.0 Baso # (Auto) 0.0 Abs Immat Gran (auto) 0.13 H Absolute Neuts (auto) 7.7 Absolute Nucleated RBC 0.020 H Nucleated RBC % (auto) 0.2 Smear Tech's Comments VERIFIED PT 16.3 H 15.8 H INR 1.3 H 1.3 H aPTT Heparin Protocol 36.6 L 76.6 D VBG pH VBG pCO2 VBG pO2 VBG HCO3 VBG O2 Saturation VBG Base Excess Sodium 148 H Potassium 4.6 Chloride 114 H Carbon Dioxide 22 Anion Gap 17 BUN 66 H Creatinine 2.89 H Estim Creat Clear Calc 20.0 Estimated GFR 21 Random Glucose 164 H Calcium 8.3 L Phosphorus 3.7 Magnesium 3.0 H Total Bilirubin 1.7 H AST 61 H ALT 61 H Alkaline Phosphatase 128 H Troponin I High Sens 5786.7 H* B-Natriuretic Peptide 292 H Total Protein 5.9 L Albumin 3.3 L Urine Eosinophils % Random Vancomycin 02/05/24 02/05/24 05:14 09:06 WBC 8.5 RBC 3.10 L Hgb 9.8 L Hct 29.1 L MCV 93.9 MCH 31.6 MCHC 33.7 RDW 13.5 Plt Count 106 L MPV 12.3 Immature Gran % (Auto) Neut % (Auto) Lymph % (Auto) [place] % (Auto) Eos % (Auto) Baso % (Auto) Lymph # (Auto) [place] # (Auto) Eos # (Auto) Baso # (Auto) Abs Immat Gran (auto) Absolute Neuts (auto) Absolute Nucleated RBC 0.030 H Nucleated RBC % (auto) 0.4 H Smear Tech's Comments PT INR aPTT Heparin Protocol VBG pH 7.41 VBG pCO2 35 VBG pO2 103 VBG HCO3 22 VBG O2 Saturation 99.0 VBG Base Excess -1.2 Sodium Potassium Chloride Carbon Dioxide Anion Gap BUN Creatinine Estim Creat Clear Calc Estimated GFR Random Glucose Calcium Phosphorus Magnesium Total Bilirubin AST ALT Alkaline Phosphatase Troponin I High Sens B-Natriuretic Peptide Total Protein Albumin Urine Eosinophils % Random Vancomycin Microbiology Microbiology Results: Microbiology 02/04/24 11:40 Sputum - Suctioned Gram Stain - Final 02/04/24 11:40 Sputum - Suctioned Sputum Culture - Preliminary No growth to date. Procedures Date of Service Date of Service: 02/17/24 Assessment & Plan Assessment and plan (1) ARDS (adult respiratory distress syndrome): Status: Acute (2) COVID-19: Status: Acute (3) Hypernatremia: Status: Acute Plan ESTEBAN primarily due to tubular injury. He did receive IV contrast which could be another contributing factor. Urine eosinophils are negative. Currently nonoliguric. No overt signs or symptoms of uremia. No absolute indication for dialysis yet. I do expect the creatinine to peak before we see some improvement. Hypernatremia due to free water deficit Keep intake more than output with hypotonic fluids. we will follow along with the team. Thank you Time Spent With Patient Time: Total time managing care of this patient today ____ minutes. Progress Note: Quality Stroke Does the patient have a stroke diagnosis?: No
[2024-02-05] MEDS: methylPREDNISolone Sod Succ 40 MG/ML VIAL IVPUSH (10:48)
[2024-02-05 11:49] LABS: PTT Heparin Drip 70.3 SEC (53-77.9)
[2024-02-05] MEDS: hydrALAZINE HCl 20 MG/ML VIAL 10 MG IVPUSH (13:00)
--- NOTE | 2024-02-05 13:09 | P.CDIM_ITS ---
PROVIDER RESPONSE TEXT: To clarify, the appropriate diagnosis supported by the clinical indicators: Other QUERY TEXT: PHYSICIAN'S DOCUMENTATION REQUEST Date of Query: 02/05/2024 11:44 AM EDT Patient Name: Pancho Mejia Admit Date: 01/30/2024 Dear Timothy Johnson, A review of the medical record indicates additional documentation may be needed. Please review below and update the documentation accordingly. Clinical Indicators: ICU Health Care Proxy Invocation dated 02/03/24 : Cause: encephalopathy CU notes - patient is alert and confusion Orientation/consciousness: Confusion Based on the above, please further specify, in the Progress Notes, the known or suspected type of the documented encephalopathy: Metabolic Toxic Toxic metabolic Anoxic Other Other (explain) Clinically unable to determine (explain) Thank you, Becky Cash, CCS, CDIS Use of terms such as suspected, likely, concern for, or probable (associated with a specific diagnosi s that is being evaluated, monitored, or treated as if it exists) are acceptable and can be coded in the inpatient se tting, when documented at the time of discharge. Please use your independent medical judgment in providing your response. THIS QUERY IS PART OF THE PERMANENT MEDICAL RECORD
--- NOTE | 2024-02-05 18:20 | HO.SKINPHOTO ---
Location: Category: Stage: Length: Width: Depth: cm Location: R ear Category: blister Stage: Length: Width: Depth: cm Location: buttocks/coccyx Category: blister Stage: Length: Width: Depth: cm Location: Category: Stage: Length: Width: Depth: cm Location: Category: Stage: Length: Width: Depth: cm Location: Category: Stage: Length: Width: Depth: cm
[2024-02-05] MEDS: Heparin Sodium,Porcine/1/2NS 25,000 UNIT/250 ML IV.SOLN 11.26 UNIT IVCONT (18:31)
[2024-02-05 19:35] LABS: Vancomycin Random 15.4 mcg/mL (15-20)
--- NOTE | 2024-02-05 19:42 | HE.PHANOTE ---
RE: wendy Patient's renal function progressively worsening, decreased dose to 500mg Q24H with predicted trough of 16.3 mg/L, AUC of 459. Next level to be drawn 02/05@1800
[2024-02-05] MEDS: vancomycin HCL 500 MG in 0.9 % Sodium Chloride 100 ML 110 MG IV (19:53)
[2024-02-05 20:34] LABS: VBG Base Excess -6.2 mmol/L; VBG HCO3 20 mmol/L (22-26); VBG pCO2 43 mmHg; VBG pH 7.27 (7.32-7.43); VBG pO2 72 mmHg
[2024-02-05 20:37] LABS: Venous Blood Gas Refer to POC result
[2024-02-05 21:00] LABS: Anion Gap 22 (12-20); Blood Urea Nitrogen 79 mg/dL (9-16); Calcium 8.3 mg/dL (8.4-10.2); Carbon Dioxide 17 mmol/L (22-29); Chloride 113 mmol/L (96-108); Creatinine Clr Calc Pharmacy 16.9; Estimated Glomerular Filt Rate 17; Glucose Random 194 mg/dL (60-115); Magnesium 3.1 mg/dL (1.6-2.6); Phosphorus 5.4 mg/dL (2.7-4.5); Sodium 146 mmol/L (135-145)
[2024-02-05] MEDS: Calcium Gluconate/NaCl,Iso-Osm 1 GM/50 ML PLAST..BAG IV (21:20)
[2024-02-05] MEDS: Dextrose 50 % 25 GM/50 ML SYRINGE IVPUSH (21:21)
[2024-02-05] MEDS: Insulin Regular, Human 100 UNIT/ML 3 ML VIAL IVPUSH (21:21)
[2024-02-05] MEDS: Sodium Zirconium Cyclosilicate 10 GM POWD.PACK PO (21:21)
[2024-02-05] MEDS: Sodium Bicarbonate 8.4% 50 MEQ in Dextrose 5 % 950 ML IV (21:30)
[2024-02-05 22:30] LABS: Albumin Level 3.7 g/dL (3.5-5.0)
--- NOTE | 2024-02-05 23:36 | PC.NURSE ---
At approx 2000- apnea alarm/settings initiated on vent, desaturating to 83% on 100% FiO2. INCLINOMETER TESTER Nava/RT called to bedside. Pt bagged/lavaged with BVM, suctioned moderate amount of bloody clots via in-line catheter. HR transiently dropping to 50s on tele with widening complex but resolved quickly. Heparin gtt stopped per order. Labs ordered/drawn- INCLINOMETER TESTER aware of critical potassium of 6.0, given calcium gluconate 1 g IV, regular insulin 5 units IVP, D50% 25 g/50 mL IVP, lokelma 10 g PO x1 and bicarb gtt 50 mEq IV per JAN.
[2024-02-06] VITALS (34 sets, daily range): BP systolic 110–156; BP diastolic 35–61; PULSE 66–88; RESP 12–27; TEMP 34.5–37.5; O2SAT 90–98; BMI 27.8
[2024-02-06] MEDS: Piperacillin Sodium/Tazobactam 4.5 GM in 0.9 % Sodium Chloride 100 ML IV ×4 (02:19→20:01)
[2024-02-06 04:55] LABS: Basophils Percent Auto 0.1 % (0-2); Hematocrit 31.1 % (42.0-52.0); Imm Gran Abs Auto 0.22 X10*3/uL (0.00-0.03); Lymphocytes Absolute Auto 0.3 X10*3/uL (1.2-4.9); Lymphocytes Percent Auto 2.5 % (20-40); MANUAL DIFF FLAG SCAN; Mean Corpuscular HGB Conc 32.2 g/dl (31.0-36.0); Mean Corpuscular Hemoglobin 30.9 pg (27.0-33.0); Mean Platelet Volume 11.5 fL (9.4-12.4); Monocytes Absolute Auto 0.4 X10*3/uL (0.1-1.2); Monocytes Percent Auto 3.7 % (2-11); NRBC Pct Auto 0.4 /100WBC (0.0-0.2); Neutrophils Absolute Auto 9.9 x10*3/uL (2.0-8.3); Neutrophils Percent Auto 91.7 % (45-73); Platelet Count 107 X10*3/uL (160-400); Red Blood Count 3.24 X10*6/uL (4.60-5.80); Red Cell Distribution Width 13.5 % (11.0-16.0); SCAN SMEAR FLAG 1; White Blood Count 10.8 X10*3/uL (4.8-10.8)
[2024-02-06 04:57] LABS: VBG Base Excess -4.9 mmol/L; VBG HCO3 22 mmol/L (22-26); VBG pCO2 48 mmHg; VBG pH 7.26 (7.32-7.43); VBG pO2 86 mmHg
[2024-02-06 05:00] LABS: Venous Blood Gas Refer to POC result
[2024-02-06] MEDS: propofoL 1,000 MG/100 ML VIAL 12.82 MG IVCONT ×3 (05:06→20:11)
[2024-02-06 05:22] LABS: Albumin Level 3.4 g/dL (3.5-5.0); Anion Gap 20 (12-20); Blood Urea Nitrogen 97 mg/dL (9-16); Calcium 8.2 mg/dL (8.4-10.2); Carbon Dioxide 20 mmol/L (22-29); Chloride 108 mmol/L (96-108); Creatinine Clr Calc Pharmacy 14.1; Estimated Glomerular Filt Rate 14; Glucose Random 167 mg/dL (60-115); Magnesium 3.1 mg/dL (1.6-2.6); Phosphorus 6.6 mg/dL (2.7-4.5); Sodium 142 mmol/L (135-145)
[2024-02-06 05:29] LABS: SLIDE REVIEW VERIFIED
[2024-02-06] MEDS: Calcium Gluconate/NaCl,Iso-Osm 2 GM/100 ML PLAST..BAG IV (05:37)
[2024-02-06] MEDS: Sodium Zirconium Cyclosilicate 10 GM POWD.PACK PO (05:43)
[2024-02-06 06:02] LABS: VBG Base Excess -4.6 mmol/L; VBG HCO3 21 mmol/L (22-26); VBG pCO2 42 mmHg; VBG pO2 84 mmHg
[2024-02-06 06:04] LABS: Venous Blood Gas Refer to POC result
[2024-02-06] MEDS: 0.9 % Sodium Chloride Flush 3 ML SYRINGE IVFLUSH (07:55)
[2024-02-06] MEDS: Albuterol/Iprat 2.5/0.5MG 3 ML AMPUL.NEB INHALE ×4 (07:56→19:01)
[2024-02-06] MEDS: Chlorhexidine Gluc Oral Rinse 15 ML MOUTHWASH BUCCAL ×3 (08:13→20:01)
[2024-02-06] MEDS: Famotidine/PF 20 MG/2 ML VIAL IVPUSH (08:13)
--- NOTE | 2024-02-06 09:48 | MHC.CLN ---
F/U PT REMAINS INTUBATED AND SEDATED REVIEWED LABS-SERUM NA WNL DISCUSSED AT ROUNDS WITH MD; PT TO RECEIVE HD TODAY PT RECEIVING PROMOTE AT MAX GOAL RATE 60ML/HR WITH 300ML FREE WATER FLUSHES Q 4 HRS TO PROVIDE 1440KCALS (1778KCALS WITH SEDATION; 25KCALS/KG), 90G PROTEIN (1.25G/KG), 3008ML TOTAL WATER FROM FORMULA AND FLUSHES (42ML/KG) RECOMMEND DECREASING FREE WATER FLUSHES TO 240ML FREE WATER FLUSHES Q 6 HRS TO PROVIDE 2168ML TOTAL WATER FROM FORMULA AND FLUSHES (30ML/KG) MONITOR TOLERANCE, RESIDUALS AND LYTES
[2024-02-06] MEDS: methylPREDNISolone Sod Succ 40 MG/ML VIAL IVPUSH (11:00)
--- NOTE | 2024-02-06 11:21 | W.PM.CCHP ---
Procedures Date of Service Date of Service: 02/06/24 Central Line Placement Right IJ: Central Line Comments: After obtaining informed consent right internal jugular triple-lumen Kiet catheter placed for hemodialysis access under ultrasound guidance usual sterile conditions with immediate complications. Line position verified on chest x-ray.
--- NOTE | 2024-02-06 11:23 | P.PNCC_ITS ---
Subjective Subjective Date of Service: 02/06/24 Interval History: 83-year-old gentleman, remote smoker in his 20s and 30s, quit 40 years prior with underlying history of hypertension, CAD status post stenting admitted on 01/30/2024 with history of myalgias and worsening dyspnea for approximately 2 weeks. Patient was COVID positive on home test a day prior to admission. On ER evaluation he was significantly hypoxic requiring supplemental oxygen. Patient was started on empiric antibiotics and systemic glucocorticoids and admitted to telemetry. Hospital course is significant for progressive hypoxia, now requiring maximum support with high-flow nasal cannula. His CT angio chest demonstrated no pulmonary emboli, but some pulmonary edema and what appears to be bacterial superinfection of underlying viral pneumonia. Hospital course significant for progressive hypoxia requiring intubation on 02/03/2024 and acute kidney injury. No events overnight. Progressive renal failure. Critical Care Time (minutes): 60 Physical Exam 2 Vital Signs: Vital Signs: Last Vital Signs Temp 99.1 F 02/06/24 11:00 Pulse 77 02/06/24 11:00 Resp 22 H 02/06/24 11:00 BP 119/47 L 02/06/24 11:00 Pulse Ox 95 02/06/24 11:00 O2 Del Method Mechanical Ventil ation 02/06/24 11:00 O2 Flow Rate 100 02/05/24 09:00 FiO2 100 02/06/24 11:00 Oxygen Flow Rate 4 01/30/24 10:16 BMI result Body Mass Index 27.8 Const: General: no acute distress and other (Sedated on the vent) Eyes: Sclerae: sclerae normal EOM: EOMs intact bilaterally Neck: Neck: Yes no lymphadenopathy, Yes trachea midline and Yes supple Resp: Auscultation: crackles (Bilateral) Cardio: Rate: regular rate Rhythm: regular rhythm Heart sounds: no gallops, no murmurs and no rubs GI: Palpation (GI): Soft to palpation and Other GI palpation findings present ( Nontender) Auscultation: normal bowel sounds Extrem: General: No clubbing, No cyanosis and Yes edema (1+ bilateral) Objective Data Labs 02/06/24 04:41 02/06/24 04:41 Labs: Laboratory Results - last 24 hr 02/05/24 02/05/24 02/05/24 11:33 18:11 20:27 WBC RBC Hgb Hct MCV MCH MCHC RDW Plt Count MPV Immature Gran % (Auto) Neut % (Auto) Lymph % (Auto) [place] % (Auto) Eos % (Auto) Baso % (Auto) Lymph # (Auto) [place] # (Auto) Eos # (Auto) Baso # (Auto) Abs Immat Gran (auto) Absolute Neuts (auto) Absolute Nucleated RBC Nucleated RBC % (auto) Smear Tech's Comments aPTT Heparin Protocol 70.3 VBG pH 7.27 L VBG pCO2 43 VBG pO2 72 VBG HCO3 20 L VBG O2 Saturation 91.0 VBG Base Excess -6.2 Sodium Potassium Chloride Carbon Dioxide Anion Gap BUN Creatinine Estim Creat Clear Calc Estimated GFR Random Glucose Calcium Phosphorus Magnesium Albumin Random Vancomycin 15.4 02/05/24 02/06/24 02/06/24 20:31 04:41 04:49 WBC 10.8 RBC 3.24 L Hgb 10.0 L Hct 31.1 L MCV 96.0 MCH 30.9 MCHC 32.2 RDW 13.5 Plt Count 107 L MPV 11.5 Immature Gran % (Auto) 2.0 H Neut % (Auto) 91.7 H Lymph % (Auto) 2.5 L [place] % (Auto) 3.7 Eos % (Auto) 0.0 Baso % (Auto) 0.1 Lymph # (Auto) 0.3 L [place] # (Auto) 0.4 Eos # (Auto) 0.0 Baso # (Auto) 0.0 Abs Immat Gran (auto) 0.22 H Absolute Neuts (auto) 9.9 H Absolute Nucleated RBC 0.040 H Nucleated RBC % (auto) 0.4 H Smear Tech's Comments VERIFIED aPTT Heparin Protocol VBG pH 7.26 L VBG pCO2 48 VBG pO2 86 VBG HCO3 22 VBG O2 Saturation 97.0 VBG Base Excess -4.9 Sodium 146 H 142 Potassium 6.0 H* D 6.0 H* Chloride 113 H 108 Carbon Dioxide 17 L 20 L Anion Gap 22 H 20 BUN 79 H 97 H Creatinine 3.41 H 4.08 H* Estim Creat Clear Calc 16.9 14.1 Estimated GFR 17 14 Random Glucose 194 H 167 H Calcium 8.3 L 8.2 L Phosphorus 5.4 H 6.6 H Magnesium 3.1 H 3.1 H Albumin 3.7 3.4 L Random Vancomycin 02/06/24 05:54 WBC RBC Hgb Hct MCV MCH MCHC RDW Plt Count MPV Immature Gran % (Auto) Neut % (Auto) Lymph % (Auto) [place] % (Auto) Eos % (Auto) Baso % (Auto) Lymph # (Auto) [place] # (Auto) Eos # (Auto) Baso # (Auto) Abs Immat Gran (auto) Absolute Neuts (auto) Absolute Nucleated RBC Nucleated RBC % (auto) Smear Tech's Comments aPTT Heparin Protocol VBG pH 7.30 L VBG pCO2 42 VBG pO2 84 VBG HCO3 21 L VBG O2 Saturation 97.0 VBG Base Excess -4.6 Sodium Potassium Chloride Carbon Dioxide Anion Gap BUN Creatinine Estim Creat Clear Calc Estimated GFR Random Glucose Calcium Phosphorus Magnesium Albumin Random Vancomycin Microbiology Microbiology Results: Microbiology 02/04/24 11:40 Sputum - Suctioned Gram Stain - Final 02/04/24 11:40 Sputum - Suctioned Sputum Culture - Final No growth. Progress Note: A&P Assessment and plan (1) NSTEMI (non-ST elevated myocardial infarction): Status: Acute (2) ESTEBAN (acute kidney injury): Status: Acute (3) ARDS (adult respiratory distress syndrome): Status: Acute (4) COVID-19: Status: Acute (5) Pneumonia: Status: Acute (6) Acute respiratory failure with hypoxia: Status: Acute Plan Assessment: 83-year-old gentleman admitted with acute hypoxic respiratory failure secondary to bacterial superinfection of underlying COVID pneumonia, further complicated by pulmonary edema, now requiring ventilatory support. Plan: Neuro: No acute issues. Cardiac: Acute congestive heart failure, improved with diuresis. 2D echocardiogram with underlying diastolic dysfunction. Also with NSTEMI, heparin drip discontinued secondary to worsening hyperkalemia and blood oozing from multiple peripheral sites. Pulmonary: Acute hypoxic respiratory failure secondary to bacterial superinfection of underlying COVID pneumonia, now requiring ventilatory support. Continue to titrate off as tolerated. Renal: Acute kidney injury, worsening. Now with significant hyperkalemia. Will likely require hemodialysis. Hemodialysis catheter placed. Nephrology shows care appreciated. Endo: No acute issues. GI: No acute issues. ID: Blood cultures are pending. Empirically covered with broad-spectrum antibiotics. Heme/Onc: No acute issues. Psych: No acute issues. Miscellaneous: No acute issues. Prophylaxis: Heparin, famotidine Diet: Tube feeds Critical care time spent: 60 minutes Quality Stroke Does the patient have a stroke diagnosis?: No VTE Prior VTE?: No VTE Risk Level:: Medical - moderate - high VTE Device Contraindication: Treatment Not Indicated VTE Drug Contraindication: N/A - Med Ordered
[2024-02-06] MEDS: Sodium Bicarbonate 8.4% 50 MEQ in Dextrose 5 % 950 ML IV (12:55)
--- NOTE | 2024-02-06 14:04 | P.CDIM_ITS ---
PROVIDER RESPONSE TEXT: To clarify, the appropriate diagnosis supported by the clinical indicators: Adult respiratory distress syndrome (ARDS) QUERY TEXT: PHYSICIAN'S DOCUMENTATION REQUEST Date of Query: 02/06/2024 01:50 PM EDT Patient Name: Pancho Mejia Admit Date: 01/30/2024 Dear Timothy Johnson, A review of the medical record indicates additional documentation may be needed. Please review below and update the documentation accordingly. Clinical Indicators: ICU Critical care note 02/05 - Assessment and plan: Adult respiratory distress syndrome Plan: Acute hypoxic respiratory failure secondary to bacterial superinfection of underlying COPD pneu monia, now requiring vent support. If possible, consistency of a diagnosis documented within the Plan of the progress note, if agree: Adult respiratory distress syndrome (ARDS) Other Other (explain) Clinically unable to determine (explain) Thank you, Becky Cash, CCS, CDIS Use of terms such as suspected, likely, concern for, or probable (associated with a specific diagnosi s that is being evaluated, monitored, or treated as if it exists) are acceptable and can be coded in the inpatient se tting, when documented at the time of discharge. Please use your independent medical judgment in providing your response. THIS QUERY IS PART OF THE PERMANENT MEDICAL RECORD
--- NOTE | 2024-02-06 15:00 | MHC.CM.PN ---
Pt continues care in ICU: on ventilatory support with multi system impairment. Pt COVID positive. No plans to attempt vent weaning - overall condition very fragile. CM to follow for changes in clinical status. D/C planning ongoing and dependent on pt recovery.
[2024-02-06 19:02] LABS: Vancomycin Random 12.8 mcg/mL (15-20)
[2024-02-06] MEDS: vancomycin HCL 500 MG in 0.9 % Sodium Chloride 100 ML 110 MG IV (20:01)
[2024-02-06 20:13] LABS: VBG Base Excess 1.2 mmol/L; VBG HCO3 25 mmol/L (22-26); VBG pCO2 39 mmHg; VBG pH 7.41 (7.32-7.43); VBG pO2 61 mmHg
[2024-02-06 20:28] LABS: Venous Blood Gas Refer to POC result
[2024-02-06 20:40] LABS: Anion Gap 19 (12-20); Blood Urea Nitrogen 67 mg/dL (9-16); Calcium 7.8 mg/dL (8.4-10.2); Carbon Dioxide 25 mmol/L (22-29); Chloride 100 mmol/L (96-108); Creatinine Clr Calc Pharmacy 17.9; Estimated Glomerular Filt Rate 18; Glucose Random 210 mg/dL (60-115); Magnesium 2.5 mg/dL (1.6-2.6); Potassium 4.9 mmol/L (3.3-5.1); Sodium 139 mmol/L (135-145)
--- NOTE | 2024-02-06 21:57 | PM.PNNEP ---
Subjective Subjective Date of Service: 02/06/24 Interval history: No events overnight. Worsening renal indices with hyperkalemia Physical Exam Vital Signs: Vital Signs: Last Vital Signs Temp 98.4 F 02/06/24 20:59 Pulse 88 02/06/24 20:59 Resp 15 02/06/24 20:59 BP 141/58 H 02/06/24 20:59 Pulse Ox 91 L 02/06/24 20:59 O2 Del Method Mechanical Ventil ation 02/06/24 20:59 O2 Flow Rate 100 02/05/24 09:00 FiO2 90 02/06/24 20:59 Oxygen Flow Rate 4 01/30/24 10:16 BMI result Body Mass Index 27.8 Const: General: comfortable and no acute distress HEENT: Head: Yes normocephalic Resp: Auscultation: diminished lung sounds Cardio: Jugular venous distension: no JVD Rate: regular rate GI: Palpation (GI): Soft to palpation Auscultation: normal bowel sounds : General: Yes no CVA tenderness Back/Spine/Pelvis: Back: no CVA tenderness Skin: General skin exam: no rashes or lesions noted Extrem: Right upper extremity: edema Objective Data Labs 02/06/24 04:41 02/06/24 20:06 Labs: Laboratory Results - last 24 hr 02/05/24 02/06/24 02/06/24 20:31 04:41 04:49 WBC 10.8 RBC 3.24 L Hgb 10.0 L Hct 31.1 L MCV 96.0 MCH 30.9 MCHC 32.2 RDW 13.5 Plt Count 107 L MPV 11.5 Immature Gran % (Auto) 2.0 H Neut % (Auto) 91.7 H Lymph % (Auto) 2.5 L [place] % (Auto) 3.7 Eos % (Auto) 0.0 Baso % (Auto) 0.1 Lymph # (Auto) 0.3 L [place] # (Auto) 0.4 Eos # (Auto) 0.0 Baso # (Auto) 0.0 Abs Immat Gran (auto) 0.22 H Absolute Neuts (auto) 9.9 H Absolute Nucleated RBC 0.040 H Nucleated RBC % (auto) 0.4 H Smear Tech's Comments VERIFIED VBG pH 7.26 L VBG pCO2 48 VBG pO2 86 VBG HCO3 22 VBG O2 Saturation 97.0 VBG Base Excess -4.9 Sodium 142 Potassium 6.0 H* Chloride 108 Carbon Dioxide 20 L Anion Gap 20 BUN 97 H Creatinine 4.08 H* Estim Creat Clear Calc 14.1 Estimated GFR 14 Random Glucose 167 H Calcium 8.2 L Phosphorus 6.6 H Magnesium 3.1 H Albumin 3.7 3.4 L Random Vancomycin 02/06/24 02/06/24 02/06/24 05:54 18:09 20:06 WBC RBC Hgb Hct MCV MCH MCHC RDW Plt Count MPV Immature Gran % (Auto) Neut % (Auto) Lymph % (Auto) [place] % (Auto) Eos % (Auto) Baso % (Auto) Lymph # (Auto) [place] # (Auto) Eos # (Auto) Baso # (Auto) Abs Immat Gran (auto) Absolute Neuts (auto) Absolute Nucleated RBC Nucleated RBC % (auto) Smear Tech's Comments VBG pH 7.30 L 7.41 VBG pCO2 42 39 VBG pO2 84 61 VBG HCO3 21 L 25 VBG O2 Saturation 97.0 91.0 VBG Base Excess -4.6 1.2 Sodium 139 Potassium 4.9 Chloride 100 Carbon Dioxide 25 Anion Gap 19 BUN 67 H Creatinine 3.23 H Estim Creat Clear Calc 17.9 Estimated GFR 18 Random Glucose 210 H Calcium 7.8 L Phosphorus 6.0 H Magnesium 2.5 Albumin Random Vancomycin 12.8 L Microbiology Microbiology Results: Microbiology 02/04/24 11:40 Sputum - Suctioned Gram Stain - Final 02/04/24 11:40 Sputum - Suctioned Sputum Culture - Final No growth. Procedures Date of Service Date of Service: 02/06/24 Assessment & Plan Assessment and plan (1) ESTEBAN (acute kidney injury): Status: Acute Plan ESTEBAN due to tubular injury Has COVID and has received contrast for CTA Urine output marginal No known renal dysfunction @ baseline Needs HD; Ordered HD for today/Sat/Mon C/W current supportive care for now Shall continue to closely follow up Progress Note: Quality Stroke Does the patient have a stroke diagnosis?: No
[2024-02-07] VITALS (39 sets, daily range): BP systolic 86–156; BP diastolic 34–69; PULSE 75–163; RESP 14–20; TEMP 34.5–38.2; O2SAT 86–95; BMI 28.2
[2024-02-07] MEDS: propofoL 1,000 MG/100 ML VIAL 17.09 MG IVCONT ×3 (01:59→23:15)
[2024-02-07] MEDS: Sodium Bicarbonate 8.4% 50 MEQ in Dextrose 5 % 950 ML IV (03:54)
[2024-02-07] MEDS: Piperacillin Sodium/Tazobactam 4.5 GM in 0.9 % Sodium Chloride 100 ML IV ×2 (03:54→12:29)
[2024-02-07 04:44] LABS: VBG Base Excess -0.4 mmol/L; VBG HCO3 25 mmol/L (22-26); VBG pCO2 44 mmHg; VBG pH 7.35 (7.32-7.43); VBG pO2 76 mmHg
[2024-02-07 05:06] LABS: Venous Blood Gas Refer to POC result
[2024-02-07 05:07] LABS: Basophils Percent Auto 0.1 % (0-2); Hemoglobin 9.3 g/dl (14.0-18.0); Imm Gran Abs Auto 0.31 X10*3/uL (0.00-0.03); Lymphocytes Absolute Auto 0.4 X10*3/uL (1.2-4.9); Lymphocytes Percent Auto 3.9 % (20-40); MANUAL DIFF FLAG SCAN; Mean Corpuscular HGB Conc 33.2 g/dl (31.0-36.0); Mean Corpuscular Hemoglobin 31.3 pg (27.0-33.0); Mean Corpuscular Volume 94.3 fL (80.0-98.0); Mean Platelet Volume 12.6 fL (9.4-12.4); Monocytes Absolute Auto 0.3 X10*3/uL (0.1-1.2); Monocytes Percent Auto 2.8 % (2-11); NRBC Pct Auto 0.6 /100WBC (0.0-0.2); Neutrophils Absolute Auto 9.5 x10*3/uL (2.0-8.3); Neutrophils Percent Auto 90.2 % (45-73); Red Blood Count 2.97 X10*6/uL (4.60-5.80); Red Cell Distribution Width 13.3 % (11.0-16.0); SCAN SMEAR FLAG 1; White Blood Count 10.5 X10*3/uL (4.8-10.8)
[2024-02-07 05:08] LABS: Platelet Count 80 X10*3/uL (160-400)
[2024-02-07 05:21] LABS: Anion Gap 15 (12-20); Blood Urea Nitrogen 84 mg/dL (9-16); Calcium 7.8 mg/dL (8.4-10.2); Carbon Dioxide 29 mmol/L (22-29); Chloride 97 mmol/L (96-108); Creatinine Clr Calc Pharmacy 14.9; Estimated Glomerular Filt Rate 15; Glucose Random 201 mg/dL (60-115); Magnesium 2.6 mg/dL (1.6-2.6); Phosphorus 6.9 mg/dL (2.7-4.5); Potassium 5.3 mmol/L (3.3-5.1); Sodium 136 mmol/L (135-145)
[2024-02-07 05:45] LABS: SLIDE REVIEW VERIFIED
[2024-02-07] MEDS: Heparin Sodium,Porcine 5,000 UNIT/ML VIAL 5000 UNIT INTRACATH (05:47)
[2024-02-07] MEDS: Albuterol/Iprat 2.5/0.5MG 3 ML AMPUL.NEB INHALE ×4 (07:48→19:54)
[2024-02-07] MEDS: Chlorhexidine Gluc Oral Rinse 15 ML MOUTHWASH BUCCAL ×3 (08:04→20:13)
[2024-02-07] MEDS: Famotidine/PF 20 MG/2 ML VIAL IVPUSH (08:04)
[2024-02-07] MEDS: Albumin Human 25 % 100 ML IV ×3 (08:05→20:50)
[2024-02-07] MEDS: 0.9 % Sodium Chloride Flush 3 ML SYRINGE IVFLUSH ×2 (08:06→16:43)
[2024-02-07] MEDS: Norepinephrine Bitartrate/D5W 8 MG/250 ML PLAST..BAG 6.68 MG IV (08:39)
--- NOTE | 2024-02-07 08:48 | PM.CCPN ---
Subjective Subjective Date of Service: 02/07/24 Interval History: 83-year-old gentleman, remote smoker in his 20s and 30s, quit 40 years prior with underlying history of hypertension, CAD status post stenting admitted on 01/30/2024 with history of myalgias and worsening dyspnea for approximately 2 weeks. Patient was COVID positive on home test a day prior to admission. On ER evaluation he was significantly hypoxic requiring supplemental oxygen. Patient was started on empiric antibiotics and systemic glucocorticoids and admitted to telemetry. Hospital course is significant for progressive hypoxia, now requiring maximum support with high-flow nasal cannula. His CT angio chest demonstrated no pulmonary emboli, but some pulmonary edema and what appears to be bacterial superinfection of underlying viral pneumonia. Hospital course significant for progressive hypoxia requiring intubation on 02/03/2024 and acute kidney injury requiring hemodialysis support. No events overnight. Critical Care Time (minutes): 60 Physical Exam Vital Signs: Vital Signs: Last Vital Signs Temp 98.8 F 02/07/24 08:00 Pulse 83 02/07/24 08:39 Resp 18 02/07/24 08:00 BP 95/36 L 02/07/24 08:39 Pulse Ox 93 02/07/24 08:00 O2 Del Method Mechanical Ventil ation 02/07/24 08:00 O2 Flow Rate 100 02/05/24 09:00 FiO2 90 02/07/24 08:00 Oxygen Flow Rate 4 01/30/24 10:16 BMI result Body Mass Index 28.2 Const: General: no acute distress and other (Sedated on the vent) Eyes: Sclerae: sclerae normal EOM: EOMs intact bilaterally Neck: Neck: Yes no lymphadenopathy, Yes trachea midline and Yes supple Resp: Auscultation: crackles bilateral Cardio: Rate: regular rate Rhythm: regular rhythm Heart sounds: no gallops, no murmurs and no rubs GI: Palpation (GI): Soft to palpation and Other GI palpation findings present ( Nontender) Auscultation: normal bowel sounds Extrem: General: Yes no pedal edema, No clubbing and No cyanosis Objective Data Labs 02/07/24 04:40 02/07/24 04:40 Labs: Laboratory Results - last 24 hr 02/06/24 02/06/24 02/07/24 18:09 20:06 04:38 WBC RBC Hgb Hct MCV MCH MCHC RDW Plt Count MPV Immature Gran % (Auto) Neut % (Auto) Lymph % (Auto) [place] % (Auto) Eos % (Auto) Baso % (Auto) Lymph # (Auto) [place] # (Auto) Eos # (Auto) Baso # (Auto) Abs Immat Gran (auto) Absolute Neuts (auto) Absolute Nucleated RBC Nucleated RBC % (auto) Smear Tech's Comments VBG pH 7.41 7.35 VBG pCO2 39 44 VBG pO2 61 76 VBG HCO3 25 25 VBG O2 Saturation 91.0 94.0 VBG Base Excess 1.2 -0.4 Sodium 139 Potassium 4.9 Chloride 100 Carbon Dioxide 25 Anion Gap 19 BUN 67 H Creatinine 3.23 H Estim Creat Clear Calc 17.9 Estimated GFR 18 Random Glucose 210 H Calcium 7.8 L Phosphorus 6.0 H Magnesium 2.5 Albumin Random Vancomycin 12.8 L 02/07/24 04:40 WBC 10.5 RBC 2.97 L Hgb 9.3 L Hct 28.0 L MCV 94.3 MCH 31.3 MCHC 33.2 RDW 13.3 Plt Count 80 L D MPV 12.6 H Immature Gran % (Auto) 3.0 H Neut % (Auto) 90.2 H Lymph % (Auto) 3.9 L [place] % (Auto) 2.8 Eos % (Auto) 0.0 Baso % (Auto) 0.1 Lymph # (Auto) 0.4 L [place] # (Auto) 0.3 Eos # (Auto) 0.0 Baso # (Auto) 0.0 Abs Immat Gran (auto) 0.31 H Absolute Neuts (auto) 9.5 H Absolute Nucleated RBC 0.060 H Nucleated RBC % (auto) 0.6 H Smear Tech's Comments VERIFIED VBG pH VBG pCO2 VBG pO2 VBG HCO3 VBG O2 Saturation VBG Base Excess Sodium 136 Potassium 5.3 H Chloride 97 Carbon Dioxide 29 Anion Gap 15 BUN 84 H Creatinine 3.86 H Estim Creat Clear Calc 14.9 Estimated GFR 15 Random Glucose 201 H Calcium 7.8 L Phosphorus 6.9 H Magnesium 2.6 Albumin 3.0 L Random Vancomycin Microbiology Microbiology Results: Microbiology 02/04/24 11:40 Sputum - Suctioned Gram Stain - Final 02/04/24 11:40 Sputum - Suctioned Sputum Culture - Final No growth. Progress Note: A&P Assessment and plan (1) ESTEBAN (acute kidney injury): Status: Acute (2) ARDS (adult respiratory distress syndrome): Status: Acute (3) COVID-19: Status: Acute (4) Pneumonia: Status: Acute Plan Assessment: 83-year-old gentleman admitted with acute hypoxic respiratory failure secondary to bacterial superinfection of underlying COVID pneumonia, further complicated by pulmonary edema, now requiring ventilatory support. Plan: Neuro: No acute issues. Cardiac: Diastolic dysfunction. NSTEMI s/p heparin drip. Pulmonary: Acute hypoxic respiratory failure secondary to bacterial superinfection of underlying COVID pneumonia, now requiring ventilatory support. Continue to titrate off as tolerated. Renal: Acute kidney injury, worsening. Now with significant hyperkalemia. Now requiring hemodialysis support. Nephrology shows care appreciated. Endo: No acute issues. GI: No acute issues. ID: Cultures negative to date. Empirically covered with broad-spectrum antibiotics. Heme/Onc: No acute issues. Psych: No acute issues. Miscellaneous: No acute issues. Prophylaxis: Heparin, famotidine Diet: Tube feeds Critical care time spent: 60 minutes Quality Stroke Does the patient have a stroke diagnosis?: No VTE Prior VTE?: No VTE Risk Level:: Medical - moderate - high VTE Device Contraindication: Treatment Not Indicated VTE Drug Contraindication: N/A - Med Ordered
[2024-02-07] MEDS: Metoprolol Tartrate 5 MG/5 ML VIAL IVPUSH (09:28)
[2024-02-07] MEDS: Digoxin 0.5 MG/2 ML AMPUL 0.25 MG IVPUSH ×3 (09:31→16:43)
[2024-02-07] MEDS: propofoL 1,000 MG/100 ML VIAL 21.36 MG IVCONT ×3 (09:55→18:35)
--- NOTE | 2024-02-07 10:11 | PC.NURSE ---
During dialysis session, at approx 0924 pt went into SVT, HR 150-170 with frequent PVCs. MD alerted, ordered 5 mg metoprolol and 0.25mg digoxin. Both administered per JAN. Afterwards, patient's HR remained 130-140. MD aware. Continuing to monitor.
[2024-02-07] MEDS: methylPREDNISolone Sod Succ 40 MG/ML VIAL IVPUSH (11:08)
[2024-02-07] MEDS: Piperacillin Sodium/Tazobactam 2.25 GM in 0.9 % Sodium Chloride 50 ML IV ×2 (18:33→23:17)
[2024-02-07 18:34] LABS: Vancomycin Random 14.6 mcg/mL (15-20)
--- NOTE | 2024-02-07 18:55 | HE.PHANOTE ---
AMBER CHAN PER CHART REVIEW, PT GOT DIALYSIS ON 02/05 AND 02/06. TROUGH OF 14.6 FOR 02/06 WAS A POST DIALYSIS LEVEL. WILL NOT GIVE DOSE TODAY. PT IS SCHEDULED FOR DIALYSIS ON 02/08 SO ENTERED LEVEL AT THAT TIME. CHECK SCR TOMORROW, IF RENAL FUNCTION IMPROVED, MAY BE REASONABLE TO GIVE DOSE HUSSEIN
[2024-02-07 20:28] LABS: Influenza A PCR NEGATIVE (Negative); Influenza B PCR NEGATIVE (Negative); Resp Syncy Virus RNA Qual PCR NEGATIVE (Negative); SARS COV2 PCR INHOUSE POSITIVE (Negative)
[2024-02-07 23:23] LABS: Complement C3 92 mg/dL
[2024-02-08] VITALS (43 sets, daily range): BP systolic 0–156; BP diastolic 0–50; PULSE 0–128; RESP 14–35; TEMP 34.9–38.7; O2SAT 77–108
[2024-02-08] MEDS: Albumin Human 25 % 100 ML IV (02:33)
[2024-02-08] MEDS: Cisatracurium Besylate 20 MG/10 ML VIAL IVPUSH (03:15)
[2024-02-08 03:19] LABS: Eosinophils Absolute Auto 0.1 X10*3/uL (0.0-0.4); Eosinophils Percent Auto 1.3 % (0-4); Hematocrit 21.8 % (42.0-52.0); Imm Gran Abs Auto 0.27 X10*3/uL (0.00-0.03); Imm Gran Pct Auto 4.8 % (0.0-0.4); Lymphocytes Absolute Auto 0.6 X10*3/uL (1.2-4.9); Lymphocytes Percent Auto 10.2 % (20-40); MANUAL DIFF FLAG SCAN; Mean Corpuscular HGB Conc 32.1 g/dl (31.0-36.0); Mean Corpuscular Hemoglobin 30.7 pg (27.0-33.0); Mean Corpuscular Volume 95.6 fL (80.0-98.0); Mean Platelet Volume 12.1 fL (9.4-12.4); Monocytes Absolute Auto 0.1 X10*3/uL (0.1-1.2); Monocytes Percent Auto 0.9 % (2-11); Neutrophils Absolute Auto 4.6 x10*3/uL (2.0-8.3); Neutrophils Percent Auto 82.8 % (45-73); Red Blood Count 2.28 X10*6/uL (4.60-5.80); Red Cell Distribution Width 13.4 % (11.0-16.0); SCAN SMEAR FLAG 1; White Blood Count 5.6 X10*3/uL (4.8-10.8)
[2024-02-08 03:19] LABS: VBG Base Excess 2.2 mmol/L; VBG HCO3 29 mmol/L (22-26); VBG pCO2 62 mmHg; VBG pH 7.28 (7.32-7.43); VBG pO2 40 mmHg
[2024-02-08 03:25] LABS: INTERNATIONAL NORM RATIO 1.3 (0.9-1.1); Prothrombin Time 15.3 SEC (11.1-13.3)
[2024-02-08 03:29] LABS: NRBC Pct Auto 8.1 /100WBC (0.0-0.2); Platelet Count 90 X10*3/uL (160-400)
[2024-02-08 03:41] LABS: Venous Blood Gas Refer to POC result
[2024-02-08 03:45] LABS: Albumin Level 3.6 g/dL (3.5-5.0); Anion Gap 23 (12-20); Blood Urea Nitrogen 77 mg/dL (9-16); Calcium 7.6 mg/dL (8.4-10.2); Carbon Dioxide 26 mmol/L (22-29); Chloride 94 mmol/L (96-108); Creatinine Clr Calc Pharmacy 14.7; Estimated Glomerular Filt Rate 15; Glucose Random 147 mg/dL (60-115); Magnesium 2.7 mg/dL (1.6-2.6); Phosphorus 8.9 mg/dL (2.7-4.5); Potassium 6.5 mmol/L (3.3-5.1); Sodium 136 mmol/L (135-145)
[2024-02-08 03:52] LABS: SLIDE REVIEW VERIFIED
[2024-02-08] MEDS: Sodium Bicarbonate 8.4% 50 MEQ/50 ML VIAL IVPUSH ×2 (04:07→06:48)
[2024-02-08] MEDS: Calcium Gluconate/NaCl,Iso-Osm 2 GM/100 ML PLAST..BAG IV (04:07)
--- NOTE | 2024-02-08 04:22 | P.EN_ITS ---
Documented by User: Tho Vick NP 02/08/24 04:27 Event Note Date of Service: 02/08/24 Event Note: Patient's clinical status worsening overnight, progressively getting more hypoxic despite being on max ventilatory support. Checks x-ray showing worsening pulmonary congestion. Patient has renal failure worsening despite getting dialysis yesterday. Personally spoke with next of kin/ , Lina Mejia, informed of clinical status. Patient's and son would like for billy veloz to become DNR. Will change code status and patient's chart Patient being followed by Nephrology, I informed Dr Alejo patient worsening renal failure, Dr. Alejo agrees to do dialysis today. Appreciate renal recommendations and service. Time Spent With Patient Time: Total time managing care of this patient today ____ minutes. Documented by User: Timothy Johnson MD 02/08/24 08:57 Event Note Date of Service: 02/08/24
[2024-02-08] MEDS: propofoL 1,000 MG/100 ML VIAL 21.36 MG IVCONT ×2 (04:26→08:46)
[2024-02-08 04:37] LABS: VBG Base Excess 1.1 mmol/L; VBG HCO3 29 mmol/L (22-26); VBG pCO2 73 mmHg; VBG pH 7.21 (7.32-7.43); VBG pO2 45 mmHg
--- NOTE | 2024-02-08 05:02 | PC.NURSE ---
At approx 0215- pt desaturating to low 80s on vent despite PEEP/FiO2 10.0/100%, low Vt/Ve, high PIP. ASSESSMENT DIRECTOR Nava/RT notified and to bedside. Bagged/lavaged with BVM, able to suction moderate amount of bloody clots/secretions. SpO2 remained low 80s. Labs/pCXR obtained. Given Nimbex 20 mg IVP x1 with some effect- synchronous with vent and PIP 20s. TF turned off. Vent settings changed multiple times by RT, currently on ACVC+ 24/500/12.0/100%, SpO2 82-84%. ASSESSMENT DIRECTOR aware of critical labs of K+ 6.5 and Hgb 7.0- plan for iHD this AM with 1 unit PRBC during dialysis. Given 1 amp of bicarb and calcium gluconate 2 g IV x1. Family called and updated by ASSESSMENT DIRECTOR- code status changed to DNR.
[2024-02-08 05:44] LABS: Venous Blood Gas Refer to POC result
[2024-02-08] MEDS: Norepinephrine Bitartrate/D5W 8 MG/250 ML PLAST..BAG 46.73 MG IV (06:02)
[2024-02-08] MEDS: Piperacillin Sodium/Tazobactam 2.25 GM in 0.9 % Sodium Chloride 50 ML IV (06:03)
[2024-02-08] MEDS: Albuterol/Iprat 2.5/0.5MG 3 ML AMPUL.NEB INHALE (07:44)
[2024-02-08] MEDS: EPINEPHrine 5 MG in Dextrose 5 % 250 ML 49.94 MG IVCONT (07:45)
[2024-02-08] MEDS: Famotidine/PF 20 MG/2 ML VIAL IVPUSH (08:03)
[2024-02-08 08:12] LABS: VBG Base Excess -7.7 mmol/L; VBG HCO3 19 mmol/L (22-26); VBG pCO2 47 mmHg; VBG pH 7.22 (7.32-7.43); VBG pO2 42 mmHg
[2024-02-08] MEDS: Norepinephrine Bitartrate/D5W 8 MG/250 ML PLAST..BAG 133.5 MG IV ×2 (08:28→09:58)
[2024-02-08] MEDS: Chlorhexidine Gluc Oral Rinse 15 ML MOUTHWASH BUCCAL (08:50)
[2024-02-08] MEDS: methylPREDNISolone Sod Succ 40 MG/ML VIAL IVPUSH (08:50)
--- NOTE | 2024-02-08 08:57 | P.PNCC_ITS ---
Subjective Subjective Date of Service: 02/08/24 Interval History: 83-year-old gentleman, remote smoker in his 20s and 30s, quit 40 years prior with underlying history of hypertension, CAD status post stenting admitted on 01/30/2024 with history of myalgias and worsening dyspnea for approximately 2 weeks. Patient was COVID positive on home test a day prior to admission. On ER evaluation he was significantly hypoxic requiring supplemental oxygen. Patient was started on empiric antibiotics and systemic glucocorticoids and admitted to telemetry. Hospital course is significant for progressive hypoxia, now requiring maximum support with high-flow nasal cannula. His CT angio chest demonstrated no pulmonary emboli, but some pulmonary edema and what appears to be bacterial superinfection of underlying viral pneumonia. Hospital course significant for progressive hypoxia requiring intubation on 02/03/2024 and acute kidney injury requiring hemodialysis support. Overnight with worsening hypoxia, now refractory to ventilatory support. Also, with significantly increasing pressor requirements and hyperkalemia despite daily dialysis. Patient's code status changed to DNR after discussion of overall very poor prognosis with healthcare proxy. Critical Care Time (minutes): 60 Physical Exam 2 Vital Signs: Vital Signs: Last Vital Signs Temp 101.3 F H 02/08/24 08:56 Pulse 89 02/08/24 08:56 Resp 26 H 02/08/24 08:56 BP 120/24 L 02/08/24 08:56 Pulse Ox 77 L 02/08/24 07:58 O2 Del Method Mechanical Ventil ation 02/08/24 08:56 O2 Flow Rate 100 02/05/24 09:00 FiO2 100 02/08/24 08:56 Oxygen Flow Rate 4 01/30/24 10:16 BMI result Body Mass Index 28.2 Const: General: no acute distress and other (Sedated on the vent) Eyes: Sclerae: sclerae normal EOM: EOMs intact bilaterally Neck: Neck: Yes no lymphadenopathy, Yes trachea midline and Yes supple Resp: Auscultation: crackles bilateral Cardio: Rate: regular rate Rhythm: regular rhythm Heart sounds: no gallops, no murmurs and no rubs GI: Palpation (GI): Soft to palpation and Other GI palpation findings present ( Nontender) Auscultation: normal bowel sounds Extrem: General: No clubbing, No cyanosis and Yes edema (1+ bilateral) Objective Data Labs 02/08/24 03:13 02/08/24 03:13 Labs: Laboratory Results - last 24 hr 02/05/24 02/07/24 02/07/24 05:09 18:12 19:32 WBC RBC Hgb Hct MCV MCH MCHC RDW Plt Count MPV Immature Gran % (Auto) Neut % (Auto) Lymph % (Auto) [place] % (Auto) Eos % (Auto) Baso % (Auto) Lymph # (Auto) [place] # (Auto) Eos # (Auto) Baso # (Auto) Abs Immat Gran (auto) Absolute Neuts (auto) Absolute Nucleated RBC Nucleated RBC % (auto) Smear Tech's Comments PT INR VBG pH VBG pCO2 VBG pO2 VBG HCO3 VBG O2 Saturation VBG Base Excess Sodium Potassium Chloride Carbon Dioxide Anion Gap BUN Creatinine Estim Creat Clear Calc Estimated GFR Random Glucose Calcium Phosphorus Magnesium Albumin Random Vancomycin 14.6 L Complement C3 92 Complement C4 23 Influenza Type A (PCR) NEGATIVE Influenza Type B (PCR) NEGATIVE RSV RNA Qual (PCR) NEGATIVE SARS-CoV-2 RNA (RT-PCR) POSITIVE A Blood Type Antibody Screen Crossmatch 02/08/24 02/08/24 02/08/24 03:12 03:13 04:28 WBC 5.6 RBC 2.28 L D Hgb 7.0 L* D Hct 21.8 L D MCV 95.6 MCH 30.7 MCHC 32.1 RDW 13.4 Plt Count 90 L MPV 12.1 Immature Gran % (Auto) 4.8 H Neut % (Auto) 82.8 H Lymph % (Auto) 10.2 L [place] % (Auto) 0.9 L Eos % (Auto) 1.3 Baso % (Auto) 0.0 Lymph # (Auto) 0.6 L [place] # (Auto) 0.1 Eos # (Auto) 0.1 Baso # (Auto) 0.0 Abs Immat Gran (auto) 0.27 H Absolute Neuts (auto) 4.6 Absolute Nucleated RBC 0.450 H Nucleated RBC % (auto) 8.1 H Smear Tech's Comments VERIFIED PT 15.3 H INR 1.3 H VBG pH 7.28 L 7.21 L VBG pCO2 62 73 VBG pO2 40 45 VBG HCO3 29 H 29 H VBG O2 Saturation 64.0 66.0 VBG Base Excess 2.2 1.1 Sodium 136 Potassium 6.5 H* D Chloride 94 L Carbon Dioxide 26 Anion Gap 23 H BUN 77 H Creatinine 3.95 H Estim Creat Clear Calc 14.7 Estimated GFR 15 Random Glucose 147 H Calcium 7.6 L Phosphorus 8.9 H Magnesium 2.7 H Albumin 3.6 Random Vancomycin Complement C3 Complement C4 Influenza Type A (PCR) Influenza Type B (PCR) RSV RNA Qual (PCR) SARS-CoV-2 RNA (RT-PCR) Blood Type Antibody Screen Crossmatch 02/08/24 02/08/24 04:30 08:04 WBC RBC Hgb Hct MCV MCH MCHC RDW Plt Count MPV Immature Gran % (Auto) Neut % (Auto) Lymph % (Auto) [place] % (Auto) Eos % (Auto) Baso % (Auto) Lymph # (Auto) [place] # (Auto) Eos # (Auto) Baso # (Auto) Abs Immat Gran (auto) Absolute Neuts (auto) Absolute Nucleated RBC Nucleated RBC % (auto) Smear Tech's Comments PT INR VBG pH 7.22 L VBG pCO2 47 VBG pO2 42 VBG HCO3 19 L VBG O2 Saturation 59.0 VBG Base Excess -7.7 Sodium Potassium Chloride Carbon Dioxide Anion Gap BUN Creatinine Estim Creat Clear Calc Estimated GFR Random Glucose Calcium Phosphorus Magnesium Albumin Random Vancomycin Complement C3 Complement C4 Influenza Type A (PCR) Influenza Type B (PCR) RSV RNA Qual (PCR) SARS-CoV-2 RNA (RT-PCR) Blood Type A Positive Antibody Screen NEGATIVE Crossmatch See Detail Microbiology Microbiology Results: Microbiology 02/04/24 11:40 Sputum - Suctioned Gram Stain - Final 02/04/24 11:40 Sputum - Suctioned Sputum Culture - Final No growth. Progress Note: A&P Assessment and plan (1) ARDS (adult respiratory distress syndrome): Status: Acute (2) COVID-19: Status: Acute (3) Acute respiratory failure with hypoxia: Status: Acute (4) ESTEBAN (acute kidney injury): Status: Acute (5) CAD (coronary artery disease): Status: Acute Plan Assessment: 83-year-old gentleman admitted with acute hypoxic respiratory failure secondary to bacterial superinfection of underlying COVID pneumonia, further complicated by pulmonary edema, now requiring ventilatory support. Plan: Neuro: No acute issues. Cardiac: Diastolic dysfunction. NSTEMI s/p heparin drip. Pulmonary: Acute hypoxic respiratory failure secondary to bacterial superinfection of underlying COVID pneumonia, now refractory to maximum ventilatory support. Overall prognosis is very poor. Renal: Acute kidney injury, worsening. Now with significant hyperkalemia despite daily dialysis. Nephrology shows care appreciated. Endo: No acute issues. GI: No acute issues. ID: Cultures negative to date. Empirically covered with broad-spectrum antibiotics. COVID-19 on systemic glucocorticoids. Heme/Onc: No acute issues. Psych: No acute issues. Miscellaneous: No acute issues. Prophylaxis: Heparin, famotidine Diet: Tube feeds Critical care time spent: 60 minutes Quality Stroke Does the patient have a stroke diagnosis?: No VTE Prior VTE?: No VTE Risk Level:: Medical - moderate - high VTE Device Contraindication: Treatment Not Indicated VTE Drug Contraindication: N/A - Med Ordered
[2024-02-08] MEDS: EPINEPHrine 5 MG in Dextrose 5 % 250 ML 199.76 MG IVCONT (09:19)
[2024-02-08] MEDS: EPINEPHrine 5 MG in Dextrose 5 % 250 ML 249.7 MG IVCONT (10:25)
--- NOTE | 2024-02-08 11:00 | PM.CCN ---
Critical Care Event Note Summary Date of Service: 02/08/24 Code activated: No Narrative: Discussion of essentially terminal prognosis held with healthcare proxy/family who made decision to switch goals of care to comfort measures only. Code status to be updated and patient to be terminally extubated. Critical Care Time (minutes): 0
[2024-02-08] MEDS: fentaNYL citrate/NS 1,000 MCG/100 ML PLAST..BAG 10 MCG IVCONT (11:28)
[2024-02-08] MEDS: Midazolam HCl/PF 2 MG/2 ML VIAL IVPUSH (11:28)
[2024-02-08] MEDS: fentaNYL citrate/PF 100 MCG/2 ML VIAL IVPUSH (11:28)
--- NOTE | 2024-02-08 11:53 | PM.DDS ---
Discharge Sum: Prov Provider Primary care physician: Mia Richardson NP Consults: 02/01/24 07:44 Consult to Pulmonology Routine Consulting Provider: [facility] Reason for consultation: Covid19 with respiratory failure for eval and rec. 02/02/24 09:10 Consult for Sitter Routine Reason for consultation: pt removing Bipap mask Has provider been notified: Yes 02/04/24 09:17 Consult to Nephrology Routine Consulting Provider: [facility] Reason for consultation: ESTEBAN Has provider been notified: Yes Discharge Sum: Diag Contributing Factors (1) ARDS (adult respiratory distress syndrome): (2) COVID-19: (3) Acute respiratory failure with hypoxia: (4) ESTEBAN (acute kidney injury): (5) CAD (coronary artery disease): Discharge Sum: Summary Date and Time Date of admission: 01/30/24 14:50 Date of : 02/08/24 Time of : 11:50 Summary Details: 83-year-old gentleman, remote smoker in his 20s and 30s, quit 40 years prior with underlying history of hypertension, CAD status post stenting admitted on 01/30/2024 with history of myalgias and worsening dyspnea for approximately 2 weeks. Patient was COVID positive on home test a day prior to admission. On ER evaluation he was significantly hypoxic requiring supplemental oxygen. Patient was started on empiric antibiotics and systemic glucocorticoids and admitted to telemetry. His CT angio chest demonstrated no pulmonary emboli, but pulmonary edema and bacterial superinfection of underlying viral pneumonia. Hospital course is significant for progressive hypoxia, initially requiring maximum support with high-flow nasal cannula, later requiring intubation on 02/03/2024 and acute kidney injury requiring hemodialysis support. With a course of 02/07/2024 patient with further worsening hypoxia refractory to maximum ventilatory support. Also, with significantly increasing pressor requirements and hyperkalemia despite daily dialysis. Overnight on 02/08/2024 patient's code status changed to DNR after discussion of overall very poor prognosis with healthcare proxy. However, patient with further clinical deterioration and on 02/08/2024 discussion of essentially terminal prognosis held with healthcare proxy/family who made decision to switch goals of care to comfort measures only. Code status updated and patient terminally extubated passing without distress with family at bedside at 11:50 a.m. Additional Data Confirmation of as documented by pronouncing clinician: no pulse, no respirations and no heart sounds Family: at bedside Attending physician: Timothy Johnson MD
[2024-02-08 13:22] LABS: Venous Blood Gas Refer to POC result
== END 2024-02-08 11:50 | disposition expired | DRG 207 ==
LOC: HO.ED 10:37 → HO.EDOVER 15:17 → HO.IMC 20:24 → HO.ICU 02-02 04:04 → HO.IMC 02-04 15:48 → HO.ICU 02-04 15:53
PROVIDERS: Internal Medicine; Internal Medicine Nephrology; Nurse Practitioner Family; Physician Assistant; Registered Nurse Community Health; Student in an Organized Health Care Education/Training Program; Admitting Provider Student in an Organized Health Care Education/Training Program; Emergency Provider Emergency Medicine; PCP Nurse Practitioner Family; Visit Provider Internal Medicine Pulmonary Disease
DX: U07.1 COVID-19 (principal); I21.4 Non-ST elevation (NSTEMI) myocardial infarction; J12.82 Pneumonia due to coronavirus disease 2019; J80 Acute respiratory distress syndrome; N17.0 Acute kidney failure with tubular necrosis; I50.31 Acute diastolic (congestive) heart failure; E87.0 Hyperosmolality and hypernatremia; G93.49 Other encephalopathy; Z66 Do not resuscitate; E87.5 Hyperkalemia; I11.0 Hypertensive heart disease with heart failure; I48.91 Unspecified atrial fibrillation; B96.89 Other specified bacterial agents as the cause of diseases classified elsewhere; I25.10 Atherosclerotic heart disease of native coronary artery without angina pectoris; E78.5 Hyperlipidemia, unspecified; Z87.891 Personal history of nicotine dependence; Z95.5 Presence of coronary angioplasty implant and graft; Z79.82 Long term (current) use of aspirin; Z79.899 Other long term (current) drug therapy
CPT/HCPCS: 0241U; 36415; 36600; 71045; 71275; 80048; 80053; 80076; 80202; 81001; 82040; 82803; 83605; 83615; 83735; 83880; 84100; 84145; 84484; 85025; 85027; 85379; 85610; 85730; 85999; 86140; 86160; 86850; 86900; 86901; 86923; 87070; 87205; 90999; 93005; 93306; 93308; 94002; 94003; 94640; 94660; 94799; 99285; C1758; J0171; J0360; J0456; J0613; J0696; J1100; J1160; J1644; J1650; J1939; J1940; J2250; J2543; J2704; J2920; J3010; J3370; P9016; P9047; Q9967

== ENCOUNTER → 2024-01-30 10:21 | Outpatient (BNV) | payer BC, SELFPAY | PROVIDERS: Admitting Provider Student in an Organized Health Care Education/Training Program; Emergency Provider Emergency Medicine; PCP Nurse Practitioner Family; Visit Provider Internal Medicine | DX: R06.02 Shortness of breath (principal) | CPT/HCPCS: 93010 ==

== ENCOUNTER 2024-01-30 14:50 | Outpatient (BNV) | payer MEDICARE, SELFPAY | END 2024-02-05 07:00 | PROVIDERS: Admitting Provider Student in an Organized Health Care Education/Training Program; Emergency Provider Emergency Medicine; PCP Nurse Practitioner Family; Visit Provider Internal Medicine Cardiovascular Disease | DX: I34.81 Nonrheumatic mitral (valve) annulus calcification (principal); I21.4 Non-ST elevation (NSTEMI) myocardial infarction | CPT/HCPCS: 93308 ==

== ENCOUNTER 2024-01-30 14:50 | Outpatient (BNV) | payer MEDICARE, SELFPAY | END 2024-02-02 01:13 | PROVIDERS: Admitting Provider Student in an Organized Health Care Education/Training Program; Emergency Provider Emergency Medicine; PCP Nurse Practitioner Family; Visit Provider Internal Medicine Cardiovascular Disease | DX: R94.31 Abnormal electrocardiogram [ECG] [EKG] (principal) | CPT/HCPCS: 93010 ==

== ENCOUNTER 2024-01-30 14:50 | Outpatient (BNV) | payer MEDICARE, SELFPAY | END 2024-02-03 07:00 | PROVIDERS: Admitting Provider Student in an Organized Health Care Education/Training Program; Emergency Provider Emergency Medicine; PCP Nurse Practitioner Family; Visit Provider Internal Medicine Cardiovascular Disease | DX: I35.0 Nonrheumatic aortic (valve) stenosis (principal); I34.81 Nonrheumatic mitral (valve) annulus calcification; I36.1 Nonrheumatic tricuspid (valve) insufficiency | CPT/HCPCS: 93306 ==

== ENCOUNTER 2024-01-30 14:50 | Outpatient (BNV) | payer MEDICARE, SELFPAY | END 2024-02-04 19:27 | PROVIDERS: Admitting Provider Student in an Organized Health Care Education/Training Program; Emergency Provider Emergency Medicine; PCP Nurse Practitioner Family; Visit Provider Internal Medicine Cardiovascular Disease | DX: I48.91 Unspecified atrial fibrillation (principal) | CPT/HCPCS: 93010 ==

== ENCOUNTER → 2024-01-30 14:50 | Outpatient (BNV) | payer BC, SELFPAY | PROVIDERS: Admitting Provider Student in an Organized Health Care Education/Training Program; Emergency Provider Emergency Medicine; PCP Nurse Practitioner Family; Visit Provider Internal Medicine Pulmonary Disease | DX: J80 Acute respiratory distress syndrome (principal); U07.1 COVID-19; N17.9 Acute kidney failure, unspecified; I25.10 Atherosclerotic heart disease of native coronary artery without angina pectoris | CPT/HCPCS: 31500; 36556; 99223; 99238; 99291 ==

== ENCOUNTER → 2024-01-30 14:50 | Outpatient (BNV) | payer MEDICARE, SELFPAY | PROVIDERS: Admitting Provider Student in an Organized Health Care Education/Training Program; Emergency Provider Emergency Medicine; PCP Nurse Practitioner Family; Visit Provider Internal Medicine Nephrology | DX: U07.1 COVID-19 (principal); J80 Acute respiratory distress syndrome; E87.0 Hyperosmolality and hypernatremia; N17.0 Acute kidney failure with tubular necrosis | CPT/HCPCS: 99223; 99232 ==

== ENCOUNTER → 2024-01-30 14:50 | Outpatient (BNV) | payer BC, SELFPAY | PROVIDERS: Admitting Provider Student in an Organized Health Care Education/Training Program; Emergency Provider Emergency Medicine; PCP Nurse Practitioner Family; Visit Provider Student in an Organized Health Care Education/Training Program | DX: U07.1 COVID-19 (principal); J96.01 Acute respiratory failure with hypoxia; J18.9 Pneumonia, unspecified organism; R74.01 Elevation of levels of liver transaminase levels | CPT/HCPCS: 99223; 99233; 99499 ==